=== PATIENT | male | born 1945 | race Caucasian/White ===

== ENCOUNTER 2017-02-13 17:32 | Inpatient (IN) | payer MEDICARE ==
[~2017-02-13] VITALS: Ht 188 cm; Wt 81.2 kg
[~2017-02-13 17:32] MED LIST: ABAT250V; ADVIL PO; AKWA Tears15 ML BOTHEYES; ALBU3IS INH; ALBU90OI6 INH; ASPI81CH PO; ASPI81EC PO; Augmentin 875-1 EACH PO; B Complete1 EACH PO; BUDE.25 NEB; CARV3.125 PO; CLOT10 MT; CYAN1000 PO; CYAN500 PO; Dilaudid 2 mg Ta2 MG PO; FERR325 PO; FOLI1 PO; GABA300 PO; GABA300T24 PO; IBUP100S PO; LOVA20 PO; LOVA40 PO; Lovastatin20 MG PO; MEVACOR PO; MORP30ER PO; Mycamine100 MG/VIA IV; NYST100000 MT; OXYACE7.5T PO; OXYC1TAB11 PO; Omeprazole20 M1 PO; Oxycodone-Apap1 EAC3 PO; PRED10 PO; PRED5 PO; SERT100 PO; SERT50 PO; SERTRALINE PO; TAMS.4ER PO; TRAZ50 PO; Ventolin Soln3 ML; Ventolin Soln3 ML INH; ZENPEP DR 25,01 EACH PO; Zoloft100 MG PO
[2017-02-13] MEDS ORDERED: ESCI10 PO (17:53)
[2017-02-13] MEDS ORDERED: Hair, Skin & N1 EACH PO (17:54)
[2017-02-13] MEDS ORDERED: TRAZ50 PO (17:55)
[2017-02-13 18:14] LABS: BASOPHILS ABSOLUTE AUTO 0.02 K/mm3 (0.00-0.23); BASOPHILS PERCENT AUTO 0 % (0-2); EOSINOPHILS ABSOLUTE AUTO 0.13 K/mm3 (0.00-0.68); EOSINOPHILS PERCENT AUTO 1 % (0-6); Hematocrit 35.3 % (37.0-53.0); Hemoglobin 11.7 g/dL (13.5-17.5); IMMATURE GRAN ABSOLUTE AUTO 0.02 K/mm3 (0.00-0.10); IMMATURE GRAN PERCENT AUTO 0 % (0-1); LYMPHOCYTES ABSOLUTE AUTO 1.97 K/mm3 (0.84-5.20); LYMPHOCYTES PERCENT AUTO 18 % (21-46); MONOCYTES PERCENT AUTO 5 % (4-13); Mean Corpuscular HGB 31.9 pg (26.0-34.0); Mean Corpuscular HGB Conc 33.1 g/dL (31.5-36.5); Mean Corpuscular Volume 96 fL (80-100); Mean Platelet Volume 10.1 fL (9.1-12.4); NEUTROPHILS ABSOLUTE AUTO 8.36 K/mm3 (1.96-9.15); NEUTROPHILS PERCENT AUTO 76 % (41-73); Platelet Count 199 K/mm3 (150-400); RDW Coefficient Variation 13.2 % (11.7-14.2); Red Blood Cell Count 3.67 M/mm3 (4.30-5.90)
[2017-02-13 18:28] LABS: International Normalized Ratio 1.09; Prothrombin Time Results 11.4 Sec (9.7-11.5)
[2017-02-13 18:29] LABS: Influenza A Negative (NEGATIVE); Influenza B Negative (NEGATIVE)
[2017-02-13 18:56] LABS: Alanine Aminotransfer (ALT/SGP 24 U/L (12-78); Albumin, Blood 3.3 g/dL (3.4-5.0); Alk Phos 67 U/L (50-136); Anion Gap 6 mmol/L (6-16); Aspartate Aminotrans (AST/SGOT 21 U/L (12-37); Bilirubin, Total 0.6 mg/dL (0.1-1.0); Blood Urea Nitrogen 17 mg/dL (8-24); Bun/Creatinine Ratio 16.7 (12.0-20.0); CO2, Blood 27 mmol/L (21-32); Calcium, Blood 9.3 mg/dL (8.5-10.1); Chloride, Blood 106 mmol/L (98-108); Creatinine, Blood 1.02 mg/dL (0.60-1.20); Globulin, Blood 3.4 g/dL (2.2-4.0); Glomerular Filtration Rate >60 (60-); Glucose, Blood 107 mg/dL (70-99); Potassium, Blood 3.6 mmol/L (3.5-5.5); Sodium, Blood 139 mmol/L (136-145); Total Protein, Blood 6.7 g/dL (6.4-8.2)
[2017-02-13] MEDS ORDERED: ALBU3IS INH (22:33)
[2017-02-13] MEDS ORDERED: CYAN500 (22:36)
[2017-02-13 23:44] LABS: Source, Urine Voided
[2017-02-13 23:49] LABS: Bilirubin, Urine Neg (Neg); Blood, Urine 2+ (Neg); Glucose Qualitative, Urine Neg (Neg); Ketones, Urine Neg (Neg); Leukocyte Esterase, Urine 3+ (Neg); Nitrite, Urine Neg (Neg); Protein, Urine 2+ (Neg); Urobilinogen, Urine NORM (Normal)
[2017-02-14] LABS: Appearance, Urine Cloudy (Clear); Color, Urine Yellow (P-Yellow)
[2017-02-14 00:12] LABS: Bacteria Many /hpf; Squamous Epithelial Cells Few /hpf (Few); White Blood Cells, Urine 25-50 /hpf (0-5)
[2017-02-14 05:18] LABS: BASOPHILS ABSOLUTE AUTO 0.01 K/mm3 (0.00-0.23); BASOPHILS PERCENT AUTO 0 % (0-2); EOSINOPHILS PERCENT AUTO 0 % (0-6); Hematocrit 34.3 % (37.0-53.0); IMMATURE GRAN ABSOLUTE AUTO 0.04 K/mm3 (0.00-0.10); IMMATURE GRAN PERCENT AUTO 0 % (0-1); LYMPHOCYTES ABSOLUTE AUTO 0.65 K/mm3 (0.84-5.20); LYMPHOCYTES PERCENT AUTO 5 % (21-46); MONOCYTES PERCENT AUTO 2 % (4-13); Mean Corpuscular HGB 31.6 pg (26.0-34.0); Mean Corpuscular HGB Conc 32.1 g/dL (31.5-36.5); Mean Platelet Volume 9.9 fL (9.1-12.4); NEUTROPHILS ABSOLUTE AUTO 12.34 K/mm3 (1.96-9.15); NEUTROPHILS PERCENT AUTO 93 % (41-73); Platelet Count 209 K/mm3 (150-400); RDW Coefficient Variation 13.5 % (11.7-14.2); RDW Standard Deviation 48.6 fL (35.1-46.3); Red Blood Cell Count 3.48 M/mm3 (4.30-5.90); White Blood Cell Count 13.24 K/mm3 (4.00-11.30)
[2017-02-14 05:21] LABS: Mean Corpuscular Volume 99 fL (80-100)
[2017-02-14 05:58] LABS: Alanine Aminotransfer (ALT/SGP 34 U/L (12-78); Alk Phos 58 U/L (50-136); Aspartate Aminotrans (AST/SGOT 39 U/L (12-37); Bilirubin, Total 0.5 mg/dL (0.1-1.0); Chloride, Blood 110 mmol/L (98-108); Creatinine, Blood 0.83 mg/dL (0.60-1.20); Glomerular Filtration Rate >60 (60-); Potassium, Blood 4.2 mmol/L (3.5-5.5); Sodium, Blood 140 mmol/L (136-145); Total Protein, Blood 6.2 g/dL (6.4-8.2)
[2017-02-14 06:09] LABS: Albumin, Blood 2.8 g/dL (3.4-5.0); Albumin/Globulin Ratio 0.8 (0.8-1.8); Anion Gap 8 mmol/L (6-16); Blood Urea Nitrogen 20 mg/dL (8-24); Bun/Creatinine Ratio 24.2 (12.0-20.0); CO2, Blood 22 mmol/L (21-32); Calcium, Blood 8.4 mg/dL (8.5-10.1); Globulin, Blood 3.4 g/dL (2.2-4.0); Glucose, Blood 207 mg/dL (70-99)
[2017-02-14 14:30] LABS: Vancomycin, Trough 6.7 ug/mL (5.0-10.0)
[2017-02-15 05:42] LABS: BASOPHILS PERCENT AUTO 0 % (0-2); EOSINOPHILS PERCENT AUTO 0 % (0-6); Hematocrit 29.9 % (37.0-53.0); Hemoglobin 9.9 g/dL (13.5-17.5); IMMATURE GRAN ABSOLUTE AUTO 0.05 K/mm3 (0.00-0.10); IMMATURE GRAN PERCENT AUTO 0 % (0-1); LYMPHOCYTES ABSOLUTE AUTO 0.98 K/mm3 (0.84-5.20); LYMPHOCYTES PERCENT AUTO 6 % (21-46); MONOCYTES ABSOLUTE AUTO 0.91 K/mm3 (0.16-1.47); MONOCYTES PERCENT AUTO 6 % (4-13); Mean Corpuscular HGB 31.7 pg (26.0-34.0); Mean Corpuscular HGB Conc 33.1 g/dL (31.5-36.5); Mean Platelet Volume 10.1 fL (9.1-12.4); NEUTROPHILS ABSOLUTE AUTO 14.04 K/mm3 (1.96-9.15); NEUTROPHILS PERCENT AUTO 88 % (41-73); Platelet Count 208 K/mm3 (150-400); RDW Coefficient Variation 13.5 % (11.7-14.2); RDW Standard Deviation 47.1 fL (35.1-46.3); Red Blood Cell Count 3.12 M/mm3 (4.30-5.90); White Blood Cell Count 15.98 K/mm3 (4.00-11.30)
[2017-02-15 06:04] LABS: Mean Corpuscular Volume 96 fL (80-100)
[2017-02-15 06:07] LABS: Alanine Aminotransfer (ALT/SGP 29 U/L (12-78); Albumin, Blood 2.7 g/dL (3.4-5.0); Albumin/Globulin Ratio 0.8 (0.8-1.8); Alk Phos 53 U/L (50-136); Anion Gap 7 mmol/L (6-16); Aspartate Aminotrans (AST/SGOT 25 U/L (12-37); Bilirubin, Total 0.4 mg/dL (0.1-1.0); Blood Urea Nitrogen 29 mg/dL (8-24); Bun/Creatinine Ratio 34.8 (12.0-20.0); CO2, Blood 24 mmol/L (21-32); Calcium, Blood 8.2 mg/dL (8.5-10.1); Chloride, Blood 110 mmol/L (98-108); Creatinine, Blood 0.83 mg/dL (0.60-1.20); Globulin, Blood 3.3 g/dL (2.2-4.0); Glomerular Filtration Rate >60 (60-); Glucose, Blood 136 mg/dL (70-99); Magnesium, Blood 2.2 mg/dL (1.6-2.4); Phosphorus, Blood 2.3 mg/dL (2.5-4.9); Potassium, Blood 3.7 mmol/L (3.5-5.5); Sodium, Blood 141 mmol/L (136-145)
[2017-02-15] MEDS ORDERED: GUAI600T33 PO (12:07)
[2017-02-15] MEDS ORDERED: SACC250C PO (12:08)
[2017-02-15] MEDS ORDERED: LEVO750 PO (12:08)
[2017-02-17 03:18] LABS: M. pneumoniae Ab, IgG 0.172 U/L (<0.100); M. pneumoniae Ab, IgM 0.113 U/L (<0.770)
[2017-05-21] MEDS ORDERED: PRED10 PO (15:44)
[2018-01-01] MEDS ORDERED: Vitamin B Comple1 EA PO (11:54)
[2018-01-01] MEDS ORDERED: PROBIOTIC1 EAC6 PO (11:55)
[2018-01-01] MEDS ORDERED: TUMS200 MG PO (11:55)
[2018-01-01] MEDS ORDERED: COMBIVENT RESPIM4 GM INH (11:56)
== END 2017-02-15 13:09 | disposition home or self-care (01) | DRG 189 ==
LOC: ER 17:32 → MEDS 21:29 → ENPENDDIS 02-15 11:40 → MEDS 02-15 13:09
PROVIDERS: Emergency Medicine; Family Medicine; Hospitalist
DX: J96.21 Acute and chronic respiratory failure with hypoxia (principal); J15.6 Pneumonia due to other Gram-negative bacteria; J15.1 Pneumonia due to Pseudomonas; J44.0 Chronic obstructive pulmonary disease with (acute) lower respiratory infection; Y95 Nosocomial condition; M54.5 Low back pain; M54.2 Cervicalgia; G89.4 Chronic pain syndrome; K21.9 Gastro-esophageal reflux disease without esophagitis; F41.9 Anxiety disorder, unspecified; F32.9 Major depressive disorder, single episode, unspecified; I10 Essential (primary) hypertension; E78.5 Hyperlipidemia, unspecified; Z99.81 Dependence on supplemental oxygen; Z87.891 Personal history of nicotine dependence; Z79.82 Long term (current) use of aspirin; Z79.899 Other long term (current) drug therapy; Z79.52 Long term (current) use of systemic steroids; Z88.8 Allergy status to other drugs, medicaments and biological substances
CPT/HCPCS: 36415; 71020; 80053; 80202; 81001; 83605; 83735; 84100; 84484; 85025; 85610; 85730; 86738; 87040; 87086; 87449; 87804; 93005; 93010; 94640; 94762; 96361; 96365; 96367; 96375; 99285; J1650; J1956; J2185; J2270; J2543; J2920; J2930; J3370; J7030; J7050; J7626

== ENCOUNTER 2017-03-27 14:17 | Inpatient (IN) | payer MEDICARE ==
[~2017-03-27] VITALS: Ht 188 cm; Wt 78.4 kg
[~2017-03-27 14:17] MED LIST changes: -AZIT500 PO; -CEFD300 PO; -PRED10
[2017-03-27 19:50] LABS: Source, Urine Catheter
[2017-03-27 19:56] LABS: Appearance, Urine Clear (Clear); Blood, Urine Neg (Neg); Color, Urine Yellow (P-Yellow); Glucose Qualitative, Urine Neg (Neg); Ketones, Urine 1+ (Neg); Leukocyte Esterase, Urine 2+ (Neg); Nitrite, Urine Neg (Neg); Protein, Urine 1+ (Neg); Specific Gravity, Urine 1.015 (1.003-1.022); Urobilinogen, Urine NORM (Normal)
[2017-03-27 20:04] LABS: Bilirubin, Urine 1+ (Neg)
[2017-03-27 20:06] LABS: Yeast/Fungi Urine Mod /hpf
[2017-03-27 20:07] LABS: Bacteria Few /hpf; Squamous Epithelial Cells Few /hpf (Few)
[2017-03-28 04:58] LABS: BASOPHILS ABSOLUTE AUTO 0.02 K/mm3 (0.00-0.23); BASOPHILS PERCENT AUTO 0 % (0-2); EOSINOPHILS PERCENT AUTO 0 % (0-6); Hematocrit 32.5 % (37.0-53.0); Hemoglobin 10.6 g/dL (13.5-17.5); IMMATURE GRAN ABSOLUTE AUTO 0.21 K/mm3 (0.00-0.10); IMMATURE GRAN PERCENT AUTO 1 % (0-1); LYMPHOCYTES ABSOLUTE AUTO 0.86 K/mm3 (0.84-5.20); LYMPHOCYTES PERCENT AUTO 5 % (21-46); MONOCYTES ABSOLUTE AUTO 0.28 K/mm3 (0.16-1.47); MONOCYTES PERCENT AUTO 2 % (4-13); Mean Corpuscular HGB 31.5 pg (26.0-34.0); Mean Corpuscular HGB Conc 32.6 g/dL (31.5-36.5); Mean Corpuscular Volume 97 fL (80-100); Mean Platelet Volume 9.9 fL (9.1-12.4); NEUTROPHILS ABSOLUTE AUTO 15.86 K/mm3 (1.96-9.15); NEUTROPHILS PERCENT AUTO 92 % (41-73); Platelet Count 153 K/mm3 (150-400); RDW Standard Deviation 46.1 fL (35.1-46.3); Red Blood Cell Count 3.36 M/mm3 (4.30-5.90); White Blood Cell Count 17.23 K/mm3 (4.00-11.30)
[2017-03-28 05:23] LABS: Alanine Aminotransfer (ALT/SGP 22 U/L (12-78); Albumin, Blood 2.7 g/dL (3.4-5.0); Albumin/Globulin Ratio 0.8 (0.8-1.8); Alk Phos 52 U/L (50-136); Anion Gap 6 mmol/L (6-16); Aspartate Aminotrans (AST/SGOT 14 U/L (12-37); Bilirubin, Total 0.3 mg/dL (0.1-1.0); Blood Urea Nitrogen 23 mg/dL (8-24); Bun/Creatinine Ratio 26.5 (12.0-20.0); CO2, Blood 26 mmol/L (21-32); Calcium, Blood 8.3 mg/dL (8.5-10.1); Chloride, Blood 109 mmol/L (98-108); Creatinine, Blood 0.87 mg/dL (0.60-1.20); Globulin, Blood 3.5 g/dL (2.2-4.0); Glomerular Filtration Rate >60 (60-); Glucose, Blood 136 mg/dL (70-99); Potassium, Blood 4.7 mmol/L (3.5-5.5); Sodium, Blood 141 mmol/L (136-145); Total Protein, Blood 6.2 g/dL (6.4-8.2)
[2017-03-29] MEDS ORDERED: AZIT500 PO (14:10)
[2017-03-29] MEDS ORDERED: CEFD300 PO (14:11)
[2017-05-21] MEDS ORDERED: PRED10 PO (15:44)
[2018-01-01] MEDS ORDERED: Vitamin B Comple1 EA PO (11:54)
[2018-01-01] MEDS ORDERED: PROBIOTIC1 EAC6 PO (11:55)
[2018-01-01] MEDS ORDERED: TUMS200 MG PO (11:55)
[2018-01-01] MEDS ORDERED: COMBIVENT RESPIM4 GM INH (11:56)
== END 2017-03-29 14:59 | disposition home or self-care (01) | DRG 177 ==
LOC: MEDS 14:17
PROVIDERS: Internal Medicine
DX: J69.0 Pneumonitis due to inhalation of food and vomit (principal); K85.90 Acute pancreatitis without necrosis or infection, unspecified; J96.11 Chronic respiratory failure with hypoxia; J44.1 Chronic obstructive pulmonary disease with (acute) exacerbation; Z99.81 Dependence on supplemental oxygen; R13.10 Dysphagia, unspecified; F10.10 Alcohol abuse, uncomplicated; G89.29 Other chronic pain; I10 Essential (primary) hypertension; Z87.891 Personal history of nicotine dependence; R32 Unspecified urinary incontinence
CPT/HCPCS: 36415; 71046; 74230; 80053; 81001; 85025; 87040; 87070; 87077; 87086; 87186; 87205; 92611; 94640; 94760; G8996; G8997; G8998; J0360; J0456; J0696; J1650; J2920; J7030; J7050

== ENCOUNTER → 2017-03-27 | Outpatient (CLI) | payer MEDICARE ==
[~2017-03-27] MED LIST changes: +AZIT500 PO; +CEFD300 PO; +CYAN500; +ESCI10 PO; +GUAI600T33 PO; +Hair, Skin & N1 EACH PO; +LEVO750 PO; +PRED10; +SACC250C PO
[2017-03-27 13:10] LABS: BASOPHILS ABSOLUTE AUTO 0.05 K/mm3 (0.00-0.23); BASOPHILS PERCENT AUTO 0 % (0-2); EOSINOPHILS PERCENT AUTO 1 % (0-6); Hemoglobin 11.9 g/dL (13.5-17.5); IMMATURE GRAN ABSOLUTE AUTO 0.13 K/mm3 (0.00-0.10); IMMATURE GRAN PERCENT AUTO 1 % (0-1); LYMPHOCYTES ABSOLUTE AUTO 3.03 K/mm3 (0.84-5.20); LYMPHOCYTES PERCENT AUTO 14 % (21-46); MONOCYTES ABSOLUTE AUTO 1.32 K/mm3 (0.16-1.47); MONOCYTES PERCENT AUTO 6 % (4-13); Mean Corpuscular HGB 32.2 pg (26.0-34.0); Mean Corpuscular Volume 95 fL (80-100); Mean Platelet Volume 9.7 fL (9.1-12.4); NEUTROPHILS ABSOLUTE AUTO 17.62 K/mm3 (1.96-9.15); NEUTROPHILS PERCENT AUTO 79 % (41-73); Platelet Count 166 K/mm3 (150-400); RDW Standard Deviation 44.9 fL (35.1-46.3); Red Blood Cell Count 3.69 M/mm3 (4.30-5.90); White Blood Cell Count 22.35 K/mm3 (4.00-11.30)
[2017-03-27 13:23] LABS: Albumin, Blood 3.3 g/dL (3.4-5.0); Albumin/Globulin Ratio 0.9 (0.8-1.8); Bilirubin, Total 0.5 mg/dL (0.1-1.0); Bun/Creatinine Ratio 11.6 (12.0-20.0); Calcium, Blood 9.2 mg/dL (8.5-10.1); Creatinine, Blood 1.38 mg/dL (0.60-1.20); Globulin, Blood 3.5 g/dL (2.2-4.0); Total Protein, Blood 6.8 g/dL (6.4-8.2)
== END ==
LOC: LAB EV 13:05 → LAB SHORT 13:05
PROVIDERS: Physician Assistant
DX: R53.83 Other fatigue (principal)
CPT/HCPCS: 80053; 85025; 87040

== ENCOUNTER 2017-05-18 15:10 | Inpatient (IN) | payer MEDICARE ==
[~2017-05-18] VITALS: Ht 188 cm; Wt 79.8 kg
[~2017-05-18 15:10] MED LIST changes: -PRED10
[2017-05-19 05:26] LABS: BASOPHILS PERCENT AUTO 0 % (0-2); EOSINOPHILS PERCENT AUTO 0 % (0-6); Hematocrit 34.5 % (37.0-53.0); Hemoglobin 11.2 g/dL (13.5-17.5); Mean Corpuscular HGB 31.7 pg (26.0-34.0); Mean Corpuscular HGB Conc 32.5 g/dL (31.5-36.5); Platelet Count 161 K/mm3 (150-400); RDW Coefficient Variation 12.9 % (11.7-14.2); RDW Standard Deviation 46.1 fL (35.1-46.3); Red Blood Cell Count 3.53 M/mm3 (4.30-5.90); White Blood Cell Count 2.73 K/mm3 (4.00-11.30)
[2017-05-19 05:39] LABS: IMMATURE GRAN PERCENT AUTO 0 % (0-1); LYMPHOCYTES ABSOLUTE AUTO 0.65 K/mm3 (0.84-5.20); LYMPHOCYTES PERCENT AUTO 24 % (21-46); MONOCYTES ABSOLUTE AUTO 0.11 K/mm3 (0.16-1.47); MONOCYTES PERCENT AUTO 4 % (4-13); Mean Corpuscular Volume 98 fL (80-100); NEUTROPHILS ABSOLUTE AUTO 1.97 K/mm3 (1.96-9.15); NEUTROPHILS PERCENT AUTO 72 % (41-73)
[2017-05-19 06:06] LABS: Anion Gap 10 mmol/L (6-16); Blood Urea Nitrogen 28 mg/dL (8-24); CO2, Blood 24 mmol/L (21-32); Calcium, Blood 8.4 mg/dL (8.5-10.1); Chloride, Blood 108 mmol/L (98-108); Creatinine, Blood 0.93 mg/dL (0.60-1.20); Glomerular Filtration Rate >60 (60-); Glucose, Blood 127 mg/dL (70-99); Potassium, Blood 4.6 mmol/L (3.5-5.5); Sodium, Blood 142 mmol/L (136-145)
[2017-05-20 05:51] LABS: Vancomycin, Trough 22.3 ug/mL (5.0-10.0)
[2017-05-21 04:52] LABS: BASOPHILS ABSOLUTE AUTO 0.01 K/mm3 (0.00-0.23); BASOPHILS PERCENT AUTO 0 % (0-2); EOSINOPHILS PERCENT AUTO 0 % (0-6); Hematocrit 32.4 % (37.0-53.0); Hemoglobin 10.8 g/dL (13.5-17.5); IMMATURE GRAN ABSOLUTE AUTO 0.05 K/mm3 (0.00-0.10); IMMATURE GRAN PERCENT AUTO 1 % (0-1); LYMPHOCYTES ABSOLUTE AUTO 1.03 K/mm3 (0.84-5.20); LYMPHOCYTES PERCENT AUTO 11 % (21-46); MONOCYTES ABSOLUTE AUTO 0.52 K/mm3 (0.16-1.47); MONOCYTES PERCENT AUTO 5 % (4-13); Mean Corpuscular HGB Conc 33.3 g/dL (31.5-36.5); Mean Platelet Volume 10.4 fL (9.1-12.4); NEUTROPHILS ABSOLUTE AUTO 7.95 K/mm3 (1.96-9.15); NEUTROPHILS PERCENT AUTO 83 % (41-73); Platelet Count 210 K/mm3 (150-400); RDW Coefficient Variation 13.1 % (11.7-14.2); RDW Standard Deviation 44.6 fL (35.1-46.3); Red Blood Cell Count 3.48 M/mm3 (4.30-5.90); White Blood Cell Count 9.56 K/mm3 (4.00-11.30)
[2017-05-21 04:53] LABS: Mean Corpuscular Volume 93 fL (80-100)
[2017-05-21 05:16] LABS: Anion Gap 8 mmol/L (6-16); Blood Urea Nitrogen 31 mg/dL (8-24); Bun/Creatinine Ratio 39.7 (12.0-20.0); CO2, Blood 24 mmol/L (21-32); Calcium, Blood 8.4 mg/dL (8.5-10.1); Chloride, Blood 110 mmol/L (98-108); Creatinine, Blood 0.78 mg/dL (0.60-1.20); Glomerular Filtration Rate >60 (60-); Glucose, Blood 156 mg/dL (70-99); Potassium, Blood 4.4 mmol/L (3.5-5.5); Sodium, Blood 142 mmol/L (136-145)
[2017-05-21] MEDS ORDERED: ALBU3IS INH (15:39)
[2017-05-21] MEDS ORDERED: BUDE.25 NEB (15:42)
[2017-05-21] MEDS ORDERED: Augmentin 875-1 EACH PO (15:43)
[2017-05-21] MEDS ORDERED: PRED10 (15:44)
== END 2017-05-21 16:31 | disposition home or self-care (01) | DRG 177 ==
LOC: MEDS 15:10 → ENPENDDIS 05-21 14:00 → MEDS 05-21 16:31
PROVIDERS: Hospitalist
PROC: 3E0234Z Introduction of Serum, Toxoid and Vaccine into Muscle, Percutaneous Approach (ICD-10-PCS; principal; 2017-05-18)
DX: J69.0 Pneumonitis due to inhalation of food and vomit (principal); J96.21 Acute and chronic respiratory failure with hypoxia; J44.0 Chronic obstructive pulmonary disease with (acute) lower respiratory infection; J44.1 Chronic obstructive pulmonary disease with (acute) exacerbation; F11.20 Opioid dependence, uncomplicated; Z23 Encounter for immunization; I10 Essential (primary) hypertension; K21.9 Gastro-esophageal reflux disease without esophagitis; E78.5 Hyperlipidemia, unspecified; N40.1 Benign prostatic hyperplasia with lower urinary tract symptoms; R33.8 Other retention of urine; G89.4 Chronic pain syndrome; F41.9 Anxiety disorder, unspecified
CPT/HCPCS: 36415; 80048; 80053; 80069; 80202; 83880; 85025; 94640; 94760; 97116; 97161; 97530; G8978; G8979; G8980; J1650; J2543; J2920; J3370; J7030

== ENCOUNTER → 2017-05-18 | Outpatient (CLI) | payer MEDICARE ==
[~2017-05-18] MED LIST changes: +AZIT500 PO; +CEFD300 PO; +PRED10
[2017-05-18 14:05] LABS: Hematocrit 33.6 % (37.0-53.0); Hemoglobin 11.4 g/dL (13.5-17.5); Mean Corpuscular HGB 31.8 pg (26.0-34.0); Mean Corpuscular HGB Conc 33.9 g/dL (31.5-36.5); Mean Corpuscular Volume 94 fL (80-100); Mean Platelet Volume 9.6 fL (9.1-12.4); Platelet Count 163 K/mm3 (150-400); RDW Standard Deviation 44.7 fL (35.1-46.3); Red Blood Cell Count 3.59 M/mm3 (4.30-5.90); White Blood Cell Count 4.59 K/mm3 (4.00-11.30)
[2017-05-18 14:20] LABS: Alanine Aminotransfer (ALT/SGP 29 U/L (12-78); Albumin, Blood 3.3 g/dL (3.4-5.0); Albumin/Globulin Ratio 0.8 (0.8-1.8); Alk Phos 71 U/L (40-126); Anion Gap 10 mmol/L (6-16); Aspartate Aminotrans (AST/SGOT 35 U/L (12-37); Bilirubin, Total 0.2 mg/dL (0.1-1.0); Blood Urea Nitrogen 21 mg/dL (8-24); Bun/Creatinine Ratio 19.3 (12.0-20.0); CO2, Blood 27 mmol/L (21-32); Calcium, Blood 8.7 mg/dL (8.5-10.1); Chloride, Blood 105 mmol/L (98-108); Creatinine, Blood 1.09 mg/dL (0.60-1.20); Globulin, Blood 3.9 g/dL (2.2-4.0); Glomerular Filtration Rate >60 (60-); Glucose, Blood 115 mg/dL (70-99); Potassium, Blood 4.2 mmol/L (3.5-5.5); Sodium, Blood 142 mmol/L (136-145); Total Protein, Blood 7.2 g/dL (6.4-8.2)
[2017-05-18 15:10] LABS: BAND PERCENT MAN 6 % (0-8); BASOPHILS PERCENT MAN 0 % (0-2); EOSINOPHILS PERCENT MAN 0 % (0-6); LYMPHOCYTES ABSOLUTE MAN 1.14 K/mm3 (0.84-5.20); LYMPHOCYTES PERCENT MAN 25 % (21-46); MONOCYTES ABSOLUTE MAN 0.18 K/mm3 (0.16-1.47); MONOCYTES PERCENT MAN 4 % (4-13); MYELOCYTE ABSOLUTE MAN 0.04 K/mm3 (0.00-0.00); MYELOCYTE PERCENT MAN 1 % (0-0); NEUTROPHILS ABSOLUTE MAN 3.21 K/mm3 (1.96-9.15); SEG NEUTROPHILS PERCENT MAN 64 % (41-73); TOTAL CELLS COUNTED 100
== END | disposition home or self-care (01) ==
LOC: LAB SHORT 14:00 → LAB EV 14:00
PROVIDERS: Physician Assistant
DX: R09.02 Hypoxemia (principal)
CPT/HCPCS: 80053; 83880; 85025

== ENCOUNTER 2017-07-01 05:21 | Inpatient (IN) | payer MEDICARE ==
[~2017-07-01] VITALS: Ht 188 cm; Wt 82.5 kg
[2017-07-01 05:36] LABS: PCO2 Arterial 42.4 mmHg (35-45); PO2 Arterial 63.9 mmHg (80-100); pH Blood Arterial 7.34 (7.35-7.45)
[2017-07-01] MEDS ORDERED: CETI5 PO (05:36)
[2017-07-01 05:41] LABS: BASOPHILS ABSOLUTE AUTO 0.03 K/mm3 (0.00-0.23); BASOPHILS PERCENT AUTO 0 % (0-2); EOSINOPHILS ABSOLUTE AUTO 0.11 K/mm3 (0.00-0.68); EOSINOPHILS PERCENT AUTO 1 % (0-6); Hematocrit 36.6 % (37.0-53.0); IMMATURE GRAN ABSOLUTE AUTO 0.03 K/mm3 (0.00-0.10); IMMATURE GRAN PERCENT AUTO 0 % (0-1); LYMPHOCYTES ABSOLUTE AUTO 3.41 K/mm3 (0.84-5.20); LYMPHOCYTES PERCENT AUTO 37 % (21-46); MONOCYTES ABSOLUTE AUTO 0.29 K/mm3 (0.16-1.47); MONOCYTES PERCENT AUTO 3 % (4-13); Mean Corpuscular HGB 32.2 pg (26.0-34.0); Mean Corpuscular HGB Conc 32.8 g/dL (31.5-36.5); Mean Corpuscular Volume 98 fL (80-100); Mean Platelet Volume 9.7 fL (9.1-12.4); NEUTROPHILS ABSOLUTE AUTO 5.44 K/mm3 (1.96-9.15); NEUTROPHILS PERCENT AUTO 59 % (41-73); Platelet Count 265 K/mm3 (150-400); RDW Coefficient Variation 13.3 % (11.7-14.2); RDW Standard Deviation 48.1 fL (35.1-46.3); Red Blood Cell Count 3.73 M/mm3 (4.30-5.90); White Blood Cell Count 9.31 K/mm3 (4.00-11.30)
[2017-07-01 06:02] LABS: Alanine Aminotransfer (ALT/SGP 24 U/L (12-78); Albumin, Blood 3.4 g/dL (3.4-5.0); Albumin/Globulin Ratio 0.8 (0.8-1.8); Alk Phos 83 U/L (50-136); Anion Gap 7 mmol/L (6-16); Aspartate Aminotrans (AST/SGOT 22 U/L (12-37); Bilirubin, Total 0.4 mg/dL (0.1-1.0); Blood Urea Nitrogen 13 mg/dL (8-24); Bun/Creatinine Ratio 15.3 (12.0-20.0); CO2, Blood 27 mmol/L (21-32); Calcium, Blood 9.1 mg/dL (8.5-10.1); Chloride, Blood 107 mmol/L (98-108); Creatinine, Blood 0.85 mg/dL (0.60-1.20); Glomerular Filtration Rate >60 (60-); Glucose, Blood 161 mg/dL (70-99); Potassium, Blood 4.2 mmol/L (3.5-5.5); Sodium, Blood 141 mmol/L (136-145); Total Protein, Blood 7.4 g/dL (6.4-8.2); Troponin I 0.069 ng/mL (0.000-0.040)
[2017-07-01 07:56] LABS: International Normalized Ratio 1.07; Prothrombin Time Results 11.2 Sec (9.7-11.5)
[2017-07-01] MEDS ORDERED: GABA300 PO (09:58)
[2017-07-02 04:33] LABS: Hemoglobin 9.6 g/dL (13.5-17.5); Mean Corpuscular HGB 32.3 pg (26.0-34.0); Mean Corpuscular HGB Conc 33.1 g/dL (31.5-36.5); Mean Corpuscular Volume 98 fL (80-100); Mean Platelet Volume 10.1 fL (9.1-12.4); Platelet Count 188 K/mm3 (150-400); RDW Coefficient Variation 13.8 % (11.7-14.2); RDW Standard Deviation 49.6 fL (35.1-46.3); Red Blood Cell Count 2.97 M/mm3 (4.30-5.90); White Blood Cell Count 18.37 K/mm3 (4.00-11.30)
[2017-07-02 04:54] LABS: Anion Gap 6 mmol/L (6-16); Blood Urea Nitrogen 20 mg/dL (8-24); Bun/Creatinine Ratio 22.7 (12.0-20.0); CO2, Blood 23 mmol/L (21-32); Chloride, Blood 113 mmol/L (98-108); Creatinine, Blood 0.88 mg/dL (0.60-1.20); Glomerular Filtration Rate >60 (60-); Glucose, Blood 175 mg/dL (70-99); Magnesium, Blood 1.9 mg/dL (1.6-2.4); Potassium, Blood 4.2 mmol/L (3.5-5.5); Sodium, Blood 142 mmol/L (136-145)
[2017-07-02 05:13] LABS: BAND PERCENT MAN 26 % (0-8); BASOPHILS PERCENT MAN 0 % (0-2); EOSINOPHILS PERCENT MAN 0 % (0-6); LYMPHOCYTES ABSOLUTE MAN 1.46 K/mm3 (0.84-5.20); LYMPHOCYTES PERCENT MAN 8 % (21-46); METAMYELOCYTE ABSOLUTE MAN 0.73 K/mm3 (0.00-0.00); METAMYELOCYTE PERCENT MAN 4 % (0-0); MONOCYTES ABSOLUTE MAN 0.73 K/mm3 (0.16-1.47); MONOCYTES PERCENT MAN 4 % (4-13); NEUTROPHILS ABSOLUTE MAN 15.43 K/mm3 (1.96-9.15); SEG NEUTROPHILS PERCENT MAN 58 % (41-73); TOTAL CELLS COUNTED 100
[2017-07-02 10:25] LABS: Vancomycin, Trough 14.4 ug/mL (5.0-10.0)
[2017-07-03 04:45] LABS: BASOPHILS ABSOLUTE AUTO 0.01 K/mm3 (0.00-0.23); BASOPHILS PERCENT AUTO 0 % (0-2); EOSINOPHILS PERCENT AUTO 0 % (0-6); Hematocrit 28.4 % (37.0-53.0); Hemoglobin 9.3 g/dL (13.5-17.5); IMMATURE GRAN ABSOLUTE AUTO 0.23 K/mm3 (0.00-0.10); IMMATURE GRAN PERCENT AUTO 1 % (0-1); LYMPHOCYTES ABSOLUTE AUTO 0.72 K/mm3 (0.84-5.20); LYMPHOCYTES PERCENT AUTO 4 % (21-46); MONOCYTES ABSOLUTE AUTO 1.03 K/mm3 (0.16-1.47); MONOCYTES PERCENT AUTO 6 % (4-13); Mean Corpuscular HGB 31.8 pg (26.0-34.0); Mean Corpuscular HGB Conc 32.7 g/dL (31.5-36.5); Mean Corpuscular Volume 97 fL (80-100); Mean Platelet Volume 10.7 fL (9.1-12.4); NEUTROPHILS ABSOLUTE AUTO 14.47 K/mm3 (1.96-9.15); NEUTROPHILS PERCENT AUTO 88 % (41-73); Platelet Count 188 K/mm3 (150-400); RDW Coefficient Variation 13.8 % (11.7-14.2); RDW Standard Deviation 49.7 fL (35.1-46.3); Red Blood Cell Count 2.92 M/mm3 (4.30-5.90); White Blood Cell Count 16.46 K/mm3 (4.00-11.30)
[2017-07-03 05:18] LABS: Alanine Aminotransfer (ALT/SGP 41 U/L (12-78); Albumin, Blood 2.3 g/dL (3.4-5.0); Albumin/Globulin Ratio 0.6 (0.8-1.8); Alk Phos 58 U/L (50-136); Anion Gap 8 mmol/L (6-16); Aspartate Aminotrans (AST/SGOT 38 U/L (12-37); Bilirubin, Total 0.2 mg/dL (0.1-1.0); Blood Urea Nitrogen 23 mg/dL (8-24); Bun/Creatinine Ratio 25.4 (12.0-20.0); CO2, Blood 23 mmol/L (21-32); Chloride, Blood 112 mmol/L (98-108); Creatinine, Blood 0.91 mg/dL (0.60-1.20); Globulin, Blood 3.6 g/dL (2.2-4.0); Glomerular Filtration Rate >60 (60-); Glucose, Blood 193 mg/dL (70-99); Potassium, Blood 3.9 mmol/L (3.5-5.5); Sodium, Blood 143 mmol/L (136-145); Total Protein, Blood 5.9 g/dL (6.4-8.2)
[2017-07-03 09:46] LABS: Vancomycin, Trough 24.4 ug/mL (5.0-10.0)
[2017-07-04] MEDS ORDERED: ALBU3IS INH (11:52)
[2017-07-04] MEDS ORDERED: CLOP75 PO (11:54)
[2017-07-04] MEDS ORDERED: LEVFLO500 PO (11:55)
[2017-07-04] MEDS ORDERED: LOSA25 PO (11:55)
== END 2017-07-04 13:19 | disposition home or self-care (01) | DRG 871 ==
LOC: ER 05:21 → ICUW 06:09 → MEDS 06:09 → ICUW 08:59 → MEDS 17:35
PROVIDERS: Emergency Medicine; Internal Medicine; Internal Medicine Critical Care Medicine; Student in an Organized Health Care Education/Training Program
PROC: 5A09357 Assistance with Respiratory Ventilation, Less than 24 Consecutive Hours, Continuous Positive Airway Pressure (ICD-10-PCS; principal; 2017-07-01)
DX: A41.81 Sepsis due to Enterococcus (principal); J96.21 Acute and chronic respiratory failure with hypoxia; J18.9 Pneumonia, unspecified organism; I21.A1 Myocardial infarction type 2; J44.1 Chronic obstructive pulmonary disease with (acute) exacerbation; E87.2 Acidosis; I42.9 Cardiomyopathy, unspecified; R65.20 Severe sepsis without septic shock; I10 Essential (primary) hypertension; F41.9 Anxiety disorder, unspecified; E78.5 Hyperlipidemia, unspecified; G89.4 Chronic pain syndrome; I95.9 Hypotension, unspecified; Y95 Nosocomial condition; Z99.81 Dependence on supplemental oxygen; Z88.8 Allergy status to other drugs, medicaments and biological substances; Z79.82 Long term (current) use of aspirin; Z79.899 Other long term (current) drug therapy; Z87.891 Personal history of nicotine dependence; Z79.52 Long term (current) use of systemic steroids
CPT/HCPCS: 36415; 36600; 71045; 71046; 80048; 80053; 80202; 82803; 83605; 83735; 83880; 84484; 85025; 85610; 85730; 87040; 87070; 87077; 87186; 87205; 92610; 93005; 93010; 93306; 94010; 94640; 94644; 94660; 94664; 94667; 94760; 96365; 96368; 97161; 97530; 98960; 99285; G8978; G8979; G8980; G8996; G8997; G8998; J0456; J0696; J1650; J2185; J2543; J2920; J2930; J3370; J7030; J7050

== ENCOUNTER → 2017-07-17 | Outpatient (CLI) | END | disposition home or self-care (01) ==

== ENCOUNTER 2017-11-05 06:11 | Inpatient (IN) | payer MEDICARE ==
[~2017-11-05] VITALS: Ht 188 cm; Wt 77.8 kg
[~2017-11-05 06:11] MED LIST changes: +CETI5 PO; +CLOP75 PO; +LEVFLO500 PO; +LOSA25 PO
[2017-11-05 06:46] LABS: BASOPHILS ABSOLUTE AUTO 0.02 K/mm3 (0.00-0.23); BASOPHILS PERCENT AUTO 0 % (0-2); EOSINOPHILS ABSOLUTE AUTO 0.28 K/mm3 (0.00-0.68); EOSINOPHILS PERCENT AUTO 2 % (0-6); Hematocrit 34.1 % (37.0-53.0); Hemoglobin 11.3 g/dL (13.5-17.5); IMMATURE GRAN ABSOLUTE AUTO 0.03 K/mm3 (0.00-0.10); IMMATURE GRAN PERCENT AUTO 0 % (0-1); LYMPHOCYTES ABSOLUTE AUTO 1.56 K/mm3 (0.84-5.20); LYMPHOCYTES PERCENT AUTO 13 % (21-46); MONOCYTES ABSOLUTE AUTO 0.31 K/mm3 (0.16-1.47); MONOCYTES PERCENT AUTO 3 % (4-13); Mean Corpuscular HGB 31.7 pg (26.0-34.0); Mean Corpuscular HGB Conc 33.1 g/dL (31.5-36.5); Mean Corpuscular Volume 96 fL (80-100); NEUTROPHILS ABSOLUTE AUTO 10.08 K/mm3 (1.96-9.15); NEUTROPHILS PERCENT AUTO 82 % (41-73); Platelet Count 212 K/mm3 (150-400); RDW Standard Deviation 45.5 fL (35.1-46.3); Red Blood Cell Count 3.57 M/mm3 (4.30-5.90); White Blood Cell Count 12.28 K/mm3 (4.00-11.30)
[2017-11-05 06:58] LABS: Anion Gap 7 mmol/L (6-16); Blood Urea Nitrogen 12 mg/dL (8-24); Bun/Creatinine Ratio 15.3 (12.0-20.0); CO2, Blood 27 mmol/L (21-32); Calcium, Blood 8.4 mg/dL (8.5-10.1); Chloride, Blood 108 mmol/L (98-108); Creatinine, Blood 0.79 mg/dL (0.60-1.20); Glomerular Filtration Rate >60 (60-); Glucose, Blood 87 mg/dL (70-99); Potassium, Blood 3.9 mmol/L (3.5-5.5); Sodium, Blood 142 mmol/L (136-145)
[2017-11-05] MEDS ORDERED: LOSA25 PO (09:09)
[2017-11-05] MEDS ORDERED: PRED5 PO (09:11)
[2017-11-05] MEDS ORDERED: COMBIVENT RESPIMAT INH (09:12)
[2017-11-05] MEDS ORDERED: PROAIR RESPICL90 MCG INH (09:13)
[2017-11-05] MEDS ORDERED: VITAMIN B-121000 MCG PO (09:14)
[2017-11-05] MEDS ORDERED: VENL75ER PO (09:15)
[2017-11-05 09:48] LABS: PCO2 Arterial 43.3 mmHg (35-45); PO2 Arterial 77.5 mmHg (80-100); pH Blood Arterial 7.39 (7.35-7.45)
[2017-11-05] MEDS ORDERED: Colace100 MG PO (10:53)
[2017-11-05] MEDS ORDERED: MIRALAX17 GM PO (10:53)
[2017-11-06 05:35] LABS: BASOPHILS ABSOLUTE AUTO 0.03 K/mm3 (0.00-0.23); BASOPHILS PERCENT AUTO 0 % (0-2); EOSINOPHILS PERCENT AUTO 0 % (0-6); Hematocrit 32.7 % (37.0-53.0); Hemoglobin 10.8 g/dL (13.5-17.5); IMMATURE GRAN ABSOLUTE AUTO 0.17 K/mm3 (0.00-0.10); IMMATURE GRAN PERCENT AUTO 1 % (0-1); LYMPHOCYTES ABSOLUTE AUTO 0.89 K/mm3 (0.84-5.20); LYMPHOCYTES PERCENT AUTO 4 % (21-46); MONOCYTES ABSOLUTE AUTO 0.35 K/mm3 (0.16-1.47); MONOCYTES PERCENT AUTO 2 % (4-13); Mean Corpuscular HGB 30.9 pg (26.0-34.0); Mean Corpuscular Volume 94 fL (80-100); Mean Platelet Volume 9.7 fL (9.1-12.4); NEUTROPHILS ABSOLUTE AUTO 19.93 K/mm3 (1.96-9.15); NEUTROPHILS PERCENT AUTO 93 % (41-73); Platelet Count 210 K/mm3 (150-400); RDW Coefficient Variation 13.2 % (11.7-14.2); Red Blood Cell Count 3.49 M/mm3 (4.30-5.90); White Blood Cell Count 21.37 K/mm3 (4.00-11.30)
[2017-11-06 05:47] LABS: Alanine Aminotransfer (ALT/SGP 38 U/L (12-78); Albumin, Blood 2.7 g/dL (3.4-5.0); Albumin/Globulin Ratio 0.7 (0.8-1.8); Alk Phos 75 U/L (50-136); Anion Gap 8 mmol/L (6-16); Aspartate Aminotrans (AST/SGOT 25 U/L (12-37); Bilirubin, Total 0.4 mg/dL (0.1-1.0); Blood Urea Nitrogen 23 mg/dL (8-24); Bun/Creatinine Ratio 25.7 (12.0-20.0); CO2, Blood 25 mmol/L (21-32); Calcium, Blood 8.5 mg/dL (8.5-10.1); Chloride, Blood 107 mmol/L (98-108); Glomerular Filtration Rate >60 (60-); Glucose, Blood 172 mg/dL (70-99); Potassium, Blood 4.5 mmol/L (3.5-5.5); Sodium, Blood 140 mmol/L (136-145); Total Protein, Blood 6.7 g/dL (6.4-8.2)
[2017-11-07] MEDS ORDERED: AMOCLA500 PO (13:14)
== END 2017-11-07 13:42 | disposition home or self-care (01) | DRG 177 ==
LOC: ER 06:11 → MEDS 08:19 → ENPENDDIS 11-07 12:45 → MEDS 11-07 13:42
PROVIDERS: Emergency Medicine; Internal Medicine
DX: J69.0 Pneumonitis due to inhalation of food and vomit (principal); J96.21 Acute and chronic respiratory failure with hypoxia; J44.1 Chronic obstructive pulmonary disease with (acute) exacerbation; I50.42 Chronic combined systolic (congestive) and diastolic (congestive) heart failure; F11.20 Opioid dependence, uncomplicated; J44.0 Chronic obstructive pulmonary disease with (acute) lower respiratory infection; J84.9 Interstitial pulmonary disease, unspecified; I65.23 Occlusion and stenosis of bilateral carotid arteries; Z87.891 Personal history of nicotine dependence; Z99.81 Dependence on supplemental oxygen; Z87.01 Personal history of pneumonia (recurrent); I25.2 Old myocardial infarction; F41.9 Anxiety disorder, unspecified; Z79.82 Long term (current) use of aspirin; G89.4 Chronic pain syndrome; J84.10 Pulmonary fibrosis, unspecified; I11.0 Hypertensive heart disease with heart failure
CPT/HCPCS: 36415; 36600; 71046; 80048; 80053; 82803; 83605; 85025; 87070; 87077; 87186; 87205; 92526; 92610; 93005; 93010; 94640; 94760; 96365; 96375; 99285-25; G8996; G8997; G8998; J0295; J0456; J0696; J1650; J2920; J2930; J7050

== ENCOUNTER 2018-02-25 04:08 | Inpatient (IN) | payer MEDICARE ==
[~2018-02-25] VITALS: Ht 172.7 cm; Wt 76.5 kg
[~2018-02-25 04:08] MED LIST changes: +AMOCLA500 PO; +COMBIVENT RESPIM4 GM INH; +COMBIVENT RESPIMAT INH; +Colace100 MG PO; +MIRALAX17 GM PO; +PRED5 PT; +PROAIR RESPICL90 MCG INH; +PROBIOTIC1 EAC6 PO; +TUMS200 MG PO; +VENL75ER PO; +VITAMIN B-121000 MCG PO; +Vitamin B Comple1 EA PO
[2018-02-25 04:23] LABS: BASOPHILS ABSOLUTE AUTO 0.03 K/mm3 (0.00-0.23); BASOPHILS PERCENT AUTO 0 % (0-2); EOSINOPHILS ABSOLUTE AUTO 0.12 K/mm3 (0.00-0.68); EOSINOPHILS PERCENT AUTO 1 % (0-6); Hemoglobin 12.5 g/dL (13.5-17.5); IMMATURE GRAN ABSOLUTE AUTO 0.07 K/mm3 (0.00-0.10); IMMATURE GRAN PERCENT AUTO 1 % (0-1); LYMPHOCYTES ABSOLUTE AUTO 2.15 K/mm3 (0.84-5.20); LYMPHOCYTES PERCENT AUTO 15 % (21-46); MONOCYTES ABSOLUTE AUTO 0.57 K/mm3 (0.16-1.47); MONOCYTES PERCENT AUTO 4 % (4-13); Mean Corpuscular HGB 31.3 pg (26.0-34.0); Mean Corpuscular HGB Conc 32.9 g/dL (31.5-36.5); Mean Corpuscular Volume 95 fL (80-100); Mean Platelet Volume 10.4 fL (9.1-12.4); NEUTROPHILS ABSOLUTE AUTO 11.33 K/mm3 (1.96-9.15); NEUTROPHILS PERCENT AUTO 79 % (41-73); Platelet Count 215 K/mm3 (150-400); RDW Coefficient Variation 12.7 % (11.7-14.2); RDW Standard Deviation 43.9 fL (35.1-46.3); White Blood Cell Count 14.27 K/mm3 (4.00-11.30)
[2018-02-25 04:46] LABS: Alanine Aminotransfer (ALT/SGP 33 U/L (12-78); Albumin, Blood 3.4 g/dL (3.4-5.0); Albumin/Globulin Ratio 0.9 (0.8-1.8); Alk Phos 80 U/L (50-136); Anion Gap 7 mmol/L (6-16); Aspartate Aminotrans (AST/SGOT 22 U/L (12-37); Bilirubin, Total 0.4 mg/dL (0.1-1.0); Blood Urea Nitrogen 19 mg/dL (8-24); Bun/Creatinine Ratio 22.3 (12.0-20.0); CO2, Blood 28 mmol/L (21-32); Calcium, Blood 9.1 mg/dL (8.5-10.1); Chloride, Blood 104 mmol/L (98-108); Creatinine, Blood 0.85 mg/dL (0.60-1.20); Globulin, Blood 3.9 g/dL (2.2-4.0); Glomerular Filtration Rate >60 (60-); Glucose, Blood 103 mg/dL (70-99); Potassium, Blood 4.2 mmol/L (3.5-5.5); Sodium, Blood 139 mmol/L (136-145); Total Protein, Blood 7.3 g/dL (6.4-8.2)
[2018-02-25 04:52] LABS: Influenza A Negative (NEGATIVE); Influenza B Negative (NEGATIVE)
[2018-02-25] MEDS ORDERED: DOXA4 PO (10:21)
[2018-02-25] MEDS ORDERED: MIRALAX17 GM PO (10:22)
[2018-02-25] MEDS ORDERED: FENT50TP TOP (10:22)
[2018-02-25] MEDS ORDERED: ACET500 UD (10:25)
--- NOTE | 2018-02-25 15:45 | NUR ---
PATIENT ALERT AND ORIENTED. P.T. EVAL DONE. DIETITIAN EVAL. TO GIVE FEEDINGS IN BOLUS 4 TIMES A DAY W/WATER IN BETWEEN. LUNGS DIM TO CLEAR T/O. DENIES COUGHING. ON 4 LPM OXYGEN AND NORMALLY ON 2 LPM AT HOME. UNLABORED RESPIRATIONS. NPO DUE TO ASPIRATION W/MULTIPLE PNEUMONIAS. AWARE TO LET US KNOW IF NEEDS TO GET UP. ASKS FOR PAIN MEDS OFTEN AND ADVISED DOES NOT WANT TO GIVE ANY THAT WILL DECREASE BLD PRESS LACTIC ACID WAS HIGH. AT THIS TIME IN TO SEE PATIENT. BED IN LOW POSITION. TELE ON. CALL LIGHT WITHIN REACH. WILL CONTINUE TO MONITOR.
[2018-02-25 17:15] LABS: Adenovirus Not Detected (NOT DETECT); Bordetella pertussis Not Detected (NOT DETECT); Chlamydophila pneumoniae Not Detected (NOT DETECT); Coronavirus 229E Not Detected (NOT DETECT); Coronavirus HKU1 Not Detected (NOT DETECT); Coronavirus NL63 Not Detected (NOT DETECT); Coronavirus OC43 Not Detected (NOT DETECT); Human Metapneumovirus Not Detected (NOT DETECT); Human Rhinovirus/Enterovirus Not Detected (NOT DETECT); Influenza A/2009-H1 Not Detected (NOT DETECT); Influenza A/H1 Not Detected (NOT DETECT); Influenza A/H3 Not Detected (NOT DETECT); Influenza B Not Detected (NOT DETECT); Mycoplasma pneumoniae Not Detected (NOT DETECT); Parainfluenza Virus 1 Not Detected (NOT DETECT); Parainfluenza Virus 2 Not Detected (NOT DETECT); Parainfluenza Virus 3 Not Detected (NOT DETECT); Parainfluenza Virus 4 Not Detected (NOT DETECT); Respiratory Syncytial Virus Not Detected (NOT DETECT)
[2018-02-25 18:33] LABS: Influenza A Not Detected (NOT DETECT)
--- NOTE | 2018-02-25 19:08 | NUR ---
Consent to care Patient gives this student nurse consent to care on 02/25/18.
[2018-02-25 19:10] LABS: Source, Urine Clean Catch
[2018-02-25 19:15] LABS: Appearance, Urine Clear (Clear); Bilirubin, Urine Neg (Neg); Blood, Urine 1+ (Neg); Color, Urine Yellow (P-Yellow); Glucose Qualitative, Urine 4+ (Neg); Ketones, Urine Neg (Neg); Leukocyte Esterase, Urine 2+ (Neg); Nitrite, Urine Neg (Neg); Protein, Urine Neg (Neg); Urobilinogen, Urine NORM (Normal)
[2018-02-25 19:21] LABS: Bacteria Mod /hpf; Squamous Epithelial Cells Not Seen /hpf (Few); White Blood Cells, Urine 50-100 /hpf (0-5)
--- NOTE | 2018-02-26 04:42 | NUR ---
VSS, AFEBRILE, A/O, 20G L HAND, TELE: NSR, C/O CHRONIC BACK PAIN, FEEDING TUBE, CHECK FOR RESIDUAL PRIOR TO FEEDING, RESIDUAL >/= 150ML DURING THIS SHIFT SO UNABLE TO GIVE SUPPLEMENTAL FEEDING, 30 ML FLUSH AFTER FEEDINGS/MEDS, FREQ REQUESTS FOR PAIN MEDS, PT AWAKE ALL NOC WAITING FOR NEXT DOSE, 4L NC, 1 PA W/FWW BUT PT RESISTANT TO USING WALKER.
[2018-02-26 05:40] LABS: Hematocrit 32.4 % (37.0-53.0); Hemoglobin 10.7 g/dL (13.5-17.5); Mean Corpuscular HGB 31.8 pg (26.0-34.0); Mean Corpuscular Volume 96 fL (80-100); Mean Platelet Volume 10.8 fL (9.1-12.4); Platelet Count 174 K/mm3 (150-400); RDW Coefficient Variation 12.8 % (11.7-14.2); Red Blood Cell Count 3.37 M/mm3 (4.30-5.90); White Blood Cell Count 16.71 K/mm3 (4.00-11.30)
[2018-02-26 06:03] LABS: Alanine Aminotransfer (ALT/SGP 33 U/L (12-78); Albumin, Blood 2.7 g/dL (3.4-5.0); Albumin/Globulin Ratio 0.7 (0.8-1.8); Alk Phos 60 U/L (50-136); Anion Gap 7 mmol/L (6-16); Aspartate Aminotrans (AST/SGOT 18 U/L (12-37); Bilirubin, Total 0.2 mg/dL (0.1-1.0); Blood Urea Nitrogen 19 mg/dL (8-24); Bun/Creatinine Ratio 24.4 (12.0-20.0); CO2, Blood 23 mmol/L (21-32); Calcium, Blood 8.3 mg/dL (8.5-10.1); Chloride, Blood 110 mmol/L (98-108); Creatinine, Blood 0.78 mg/dL (0.60-1.20); Globulin, Blood 3.7 g/dL (2.2-4.0); Glomerular Filtration Rate >60 (60-); Glucose, Blood 171 mg/dL (70-99); Potassium, Blood 4.1 mmol/L (3.5-5.5); Sodium, Blood 140 mmol/L (136-145); Total Protein, Blood 6.4 g/dL (6.4-8.2)
--- NOTE | 2018-02-26 18:36 | NUR ---
PATIENT ALERT AND ORIENTED. UNLABORED RESPIRATIONS. REVIEW TUBE FEEDING TECHNIQUES SO PATIENT DOES NOT GET ASPIRATION PNEUMONIA AGAIN AND DECREASE GERD. VSS. STS FEELING BETTER THAN WHEN ADMITTED. BED IN LOW POSITION. CALL LIGHT WITHIN REACH. WILL CONTINUE TO MONITOR.
--- NOTE | 2018-02-27 04:54 | NUR ---
VSS, AFEBRILE, A/O, INDEPENDENT IN THE ROOM WHEN NOT ATTACHED TO IV POLE OR FEEDING PUMP. TUBE FEEDINGS VIA KANGAROO PUMP EVERY 4 HRS. PT TOLERATING FEEDINGS WELL W/LITTLE RESIDUAL. HOWEVER, HE IS RELUCTANT TO INCREASE BOLUS DOSE. 20G L HAND, TELE: NSR, 3L NC. PMHX: COPD, HTN, HOME 02 USE. STILL NOT SLEEPING VERY MUCH AT [facility].
[2018-02-27 05:39] LABS: Alanine Aminotransfer (ALT/SGP 31 U/L (12-78); Albumin, Blood 2.8 g/dL (3.4-5.0); Albumin/Globulin Ratio 0.8 (0.8-1.8); Alk Phos 55 U/L (50-136); Anion Gap 7 mmol/L (6-16); Aspartate Aminotrans (AST/SGOT 17 U/L (12-37); Bilirubin, Total 0.2 mg/dL (0.1-1.0); Blood Urea Nitrogen 22 mg/dL (8-24); Bun/Creatinine Ratio 29.2 (12.0-20.0); CO2, Blood 24 mmol/L (21-32); Calcium, Blood 8.5 mg/dL (8.5-10.1); Chloride, Blood 110 mmol/L (98-108); Creatinine, Blood 0.75 mg/dL (0.60-1.20); Globulin, Blood 3.7 g/dL (2.2-4.0); Glomerular Filtration Rate >60 (60-); Glucose, Blood 250 mg/dL (70-99); Potassium, Blood 3.8 mmol/L (3.5-5.5); Sodium, Blood 141 mmol/L (136-145); Total Protein, Blood 6.5 g/dL (6.4-8.2)
[2018-02-27 06:11] LABS: BASOPHILS ABSOLUTE AUTO 0.01 K/mm3 (0.00-0.23); BASOPHILS PERCENT AUTO 0 % (0-2); EOSINOPHILS PERCENT AUTO 0 % (0-6); Hematocrit 32.2 % (37.0-53.0); Hemoglobin 10.6 g/dL (13.5-17.5); IMMATURE GRAN ABSOLUTE AUTO 0.14 K/mm3 (0.00-0.10); IMMATURE GRAN PERCENT AUTO 1 % (0-1); LYMPHOCYTES ABSOLUTE AUTO 0.57 K/mm3 (0.84-5.20); LYMPHOCYTES PERCENT AUTO 3 % (21-46); MONOCYTES PERCENT AUTO 3 % (4-13); Mean Corpuscular HGB 31.5 pg (26.0-34.0); Mean Corpuscular HGB Conc 32.9 g/dL (31.5-36.5); Mean Corpuscular Volume 96 fL (80-100); NEUTROPHILS PERCENT AUTO 93 % (41-73); Platelet Count 192 K/mm3 (150-400); RDW Coefficient Variation 13.2 % (11.7-14.2); RDW Standard Deviation 46.4 fL (35.1-46.3); Red Blood Cell Count 3.36 M/mm3 (4.30-5.90); White Blood Cell Count 19.22 K/mm3 (4.00-11.30)
[2018-02-27] MEDS ORDERED: TRAZ100 PT (14:00)
[2018-02-27] MEDS ORDERED: AMOCLA500 PT (14:02)
--- NOTE | 2018-02-27 14:58 | NUR ---
PT DISCHARGED AT 1430 WITH TO TRANSPORT. EDUCATION HAS BEEN GIVING ON PEG TUBE FEEDING BY THIS [facility] DRI[facility] AND [facility]ERAP[facility]LL DIETARY. PT AND HAVE BEEN INSTRUCTED THROUROUGHLY AND DEMINSTRATED BY DOING LAST FEEDING ON THEIR OWN PRIOR TO LEAVING. BOTH STATED THEY FELT CONFIDENT THEY CAN DO FEEDING CORRECTLY. ALL BELONGINGS WERE TAKEN AND PT WHEELCHAIRED TO CAR BY THIS CHURN DRILLER NO DISTRESS NOTED. NEEDED MEDICATIONS FAXED TO [facility] IN [place]. PT AOX4 WITH AND COOPERATIVE OF ALL CARE TODAY.
[2018-04-09] MEDS ORDERED: FENT50TP TOP (08:08)
[2018-04-09] MEDS ORDERED: Morphine S10 MG/5 ML PT (08:10)
[2018-04-09] MEDS ORDERED: ALBU3IS INH (08:10)
[2018-04-09] MEDS ORDERED: BUDE.25 NEB (08:11)
[2018-04-09] MEDS ORDERED: ASPI81CH PT (08:11)
[2018-04-09] MEDS ORDERED: CARV3.125 PT (08:11)
[2018-04-09] MEDS ORDERED: ESCI10 PT (08:12)
[2018-04-09] MEDS ORDERED: CETI5 PT (08:12)
[2018-04-09] MEDS ORDERED: LOVA40 PT (08:12)
[2018-04-09] MEDS ORDERED: TRAZ50 PT (08:13)
[2018-04-09] MEDS ORDERED: MIRALAX17 GM PT (08:13)
[2018-04-09] MEDS ORDERED: PRED5EL PT (08:13)
[2018-04-09] MEDS ORDERED: DOXA4 PT (08:13)
[2018-04-09] MEDS ORDERED: FAMO40 PT (08:14)
[2018-04-09] MEDS ORDERED: GABA300 PO (08:14)
[2018-04-09] MEDS ORDERED: GABA600 PO (08:14)
[2018-04-09] MEDS ORDERED: LEVO750 PO (11:22)
== END 2018-02-27 14:34 | disposition home or self-care (01) | DRG 871 ==
LOC: ER 04:08 → ERHOLD 05:13 → MEDS 08:51 → ENPENDDIS 02-27 11:03 → MEDS 02-27 14:34
PROVIDERS: Emergency Medicine; Family Medicine; ADMIT Internal Medicine
DX: A41.9 Sepsis, unspecified organism (principal); J69.0 Pneumonitis due to inhalation of food and vomit; J96.21 Acute and chronic respiratory failure with hypoxia; J44.1 Chronic obstructive pulmonary disease with (acute) exacerbation; I50.42 Chronic combined systolic (congestive) and diastolic (congestive) heart failure; F11.20 Opioid dependence, uncomplicated; E87.2 Acidosis; J84.9 Interstitial pulmonary disease, unspecified; R65.20 Severe sepsis without septic shock; Z99.81 Dependence on supplemental oxygen; Z79.82 Long term (current) use of aspirin; I25.2 Old myocardial infarction; G89.4 Chronic pain syndrome; R13.12 Dysphagia, oropharyngeal phase
CPT/HCPCS: 36415; 71045; 71046; 80053; 81001; 83605; 85025; 85027; 87040; 87070; 87077; 87086; 87102; 87106; 87186; 87205; 87486; 87581; 87633; 87798; 87804; 92610; 93005; 93010; 94640; 94760; 96361; 96365; 96366; 96375; 96376; 97110; 97116; 97161; 97165; 97530; 97535; 99281; 99285-25; J1100; J1650; J1956; J2270; J2405; J2543; J2930; J7030; J7050

== ENCOUNTER 2018-08-02 06:36 | Inpatient (IN) | payer MEDICARE ==
[~2018-08-02] VITALS: Ht 185.4 cm; Wt 76.2 kg
[~2018-08-02 06:36] MED LIST changes: +ACET500 UD; +AMOCLA500 PT; +ASPI81CH PT; +CARV3.125 PT; +CETI5 PT; +DOXA4 PO; +ESCI10 PT; +FAMO20 PO; +FENT50TP TOP; +GABA600 PT; +Lovastatin20 MG PT; +Morphine S10 MG/5 ML PT; +Prednisone2.5 MG PT; +Pulmicort0.5 MG/2 M NEB; +TRAZ100 PT; +TRAZ50 PT
[2018-08-02 07:11] LABS: BASOPHILS ABSOLUTE AUTO 0.05 K/mm3 (0.00-0.23); BASOPHILS PERCENT AUTO 0 % (0-2); EOSINOPHILS ABSOLUTE AUTO 0.16 K/mm3 (0.00-0.68); EOSINOPHILS PERCENT AUTO 1 % (0-6); Hematocrit 37.9 % (37.0-53.0); Hemoglobin 12.4 g/dL (13.5-17.5); IMMATURE GRAN ABSOLUTE AUTO 0.07 K/mm3 (0.00-0.10); IMMATURE GRAN PERCENT AUTO 0 % (0-1); LYMPHOCYTES ABSOLUTE AUTO 2.36 K/mm3 (0.84-5.20); LYMPHOCYTES PERCENT AUTO 14 % (21-46); MONOCYTES ABSOLUTE AUTO 2.19 K/mm3 (0.16-1.47); MONOCYTES PERCENT AUTO 13 % (4-13); Mean Corpuscular HGB 31.8 pg (26.0-34.0); Mean Corpuscular HGB Conc 32.7 g/dL (31.5-36.5); Mean Corpuscular Volume 97 fL (80-100); Mean Platelet Volume 11.2 fL (9.1-12.4); NEUTROPHILS ABSOLUTE AUTO 12.28 K/mm3 (1.96-9.15); NEUTROPHILS PERCENT AUTO 72 % (41-73); Platelet Count 167 K/mm3 (150-400); RDW Coefficient Variation 14.8 % (11.7-14.2); RDW Standard Deviation 52.8 fL (35.1-46.3); White Blood Cell Count 17.11 K/mm3 (4.00-11.30)
[2018-08-02 07:25] LABS: Source, Urine Catheter
[2018-08-02 07:27] LABS: Bilirubin, Urine Neg (Neg); Blood, Urine 1+ (Neg); Glucose Qualitative, Urine Neg (Neg); Ketones, Urine Neg (Neg); Leukocyte Esterase, Urine 2+ (Neg); Nitrite, Urine Pos (Neg); Protein, Urine Neg (Neg); Urobilinogen, Urine NORM (Normal)
[2018-08-02 07:30] LABS: Alanine Aminotransfer (ALT/SGP 33 U/L (12-78); Albumin, Blood 3.9 g/dL (3.4-5.0); Albumin/Globulin Ratio 1.1 (0.8-1.8); Alk Phos 93 U/L (50-136); Anion Gap 8 mmol/L (6-16); Aspartate Aminotrans (AST/SGOT 19 U/L (12-37); Bilirubin, Total 0.6 mg/dL (0.1-1.0); Blood Urea Nitrogen 34 mg/dL (8-24); Bun/Creatinine Ratio 31.8 (12.0-20.0); CO2, Blood 28 mmol/L (21-32); Calcium, Blood 9.3 mg/dL (8.5-10.1); Chloride, Blood 106 mmol/L (98-108); Creatinine, Blood 1.07 mg/dL (0.60-1.20); Globulin, Blood 3.7 g/dL (2.2-4.0); Glomerular Filtration Rate >60 (60-); Glucose, Blood 107 mg/dL (70-99); Potassium, Blood 4.1 mmol/L (3.5-5.5); Sodium, Blood 142 mmol/L (136-145); Total Protein, Blood 7.6 g/dL (6.4-8.2); Troponin I 0.021 ng/mL (0.000-0.040)
[2018-08-02 07:31] LABS: Appearance, Urine Clear (Clear); Color, Urine Yellow (P-Yellow)
[2018-08-02 07:38] LABS: Bacteria Many /hpf; Red Blood Cells, Urine 0-2 /hpf (0-2); Squamous Epithelial Cells Not Seen /hpf (Few)
[2018-08-02] MEDS ORDERED: ZENPEP DR 25,01 EAC1 PT (13:09)
--- NOTE | 2018-08-02 19:15 | NUR ---
SHIFT SUMMARY: PATIENT ADMIT FROM ED THIS SHIFT. PT A&O; CALM AND COOPERATIVE WITH CARE. PO MEDS CRUSHED THROUGH PEG TUBE. TUBE FEEDINGS. PT UP WITH SBA c FWW TO BATHROOM. IV REHYDRATION; IV ABX CONTINUING. REPORT GIVEN TO ONCOMING RN.
[2018-08-03 05:09] LABS: BASOPHILS ABSOLUTE AUTO 0.02 K/mm3 (0.00-0.23); BASOPHILS PERCENT AUTO 0 % (0-2); EOSINOPHILS ABSOLUTE AUTO 0.17 K/mm3 (0.00-0.68); EOSINOPHILS PERCENT AUTO 1 % (0-6); Hemoglobin 10.7 g/dL (13.5-17.5); IMMATURE GRAN ABSOLUTE AUTO 0.05 K/mm3 (0.00-0.10); IMMATURE GRAN PERCENT AUTO 0 % (0-1); LYMPHOCYTES ABSOLUTE AUTO 1.36 K/mm3 (0.84-5.20); LYMPHOCYTES PERCENT AUTO 11 % (21-46); MONOCYTES ABSOLUTE AUTO 1.45 K/mm3 (0.16-1.47); MONOCYTES PERCENT AUTO 12 % (4-13); Mean Corpuscular HGB Conc 32.4 g/dL (31.5-36.5); Mean Corpuscular Volume 99 fL (80-100); Mean Platelet Volume 11.1 fL (9.1-12.4); NEUTROPHILS PERCENT AUTO 75 % (41-73); Platelet Count 146 K/mm3 (150-400); RDW Standard Deviation 54.8 fL (35.1-46.3); Red Blood Cell Count 3.34 M/mm3 (4.30-5.90); White Blood Cell Count 11.95 K/mm3 (4.00-11.30)
[2018-08-03 05:34] LABS: Anion Gap 7 mmol/L (6-16); Blood Urea Nitrogen 28 mg/dL (8-24); Bun/Creatinine Ratio 33.8 (12.0-20.0); CO2, Blood 24 mmol/L (21-32); Calcium, Blood 8.2 mg/dL (8.5-10.1); Chloride, Blood 113 mmol/L (98-108); Creatinine, Blood 0.83 mg/dL (0.60-1.20); Glomerular Filtration Rate >60 (60-); Glucose, Blood 100 mg/dL (70-99); Magnesium, Blood 2.3 mg/dL (1.6-2.4); Phosphorus, Blood 2.6 mg/dL (2.5-4.9); Sodium, Blood 144 mmol/L (136-145)
--- NOTE | 2018-08-03 05:38 | NUR ---
a+o, tube patent flushed post medication, pt declined to be st cathed stating he wished to minimize chance of infection, also declined food both times offered during the night because he experinces acid reflux when he eats at night, cooperative, discussed ways to minimize nonsocomil infection, call light in reach, infusing ns with no s/sx of infection or infiltration, room air
--- NOTE | 2018-08-03 19:40 | NUR ---
SHIFT SUMMARY: NO ACUTE CHANGES TO REPORT THIS SHIFT. PT A&O; CALM AND COOPERATIVE WITH CARE. MEDICATED FOR PAIN PER EMAR, MEDS THROUGH PEG TUBE. BOLUS FEEDINGS THROUGH PEG TUBE. IV ABX CONTINUING. REPORT GIVEN TO ONCOMING RN.
[2018-08-04 05:27] LABS: BASOPHILS ABSOLUTE AUTO 0.02 K/mm3 (0.00-0.23); BASOPHILS PERCENT AUTO 0 % (0-2); EOSINOPHILS ABSOLUTE AUTO 0.08 K/mm3 (0.00-0.68); EOSINOPHILS PERCENT AUTO 1 % (0-6); Hematocrit 32.3 % (37.0-53.0); Hemoglobin 10.3 g/dL (13.5-17.5); IMMATURE GRAN ABSOLUTE AUTO 0.02 K/mm3 (0.00-0.10); IMMATURE GRAN PERCENT AUTO 0 % (0-1); LYMPHOCYTES ABSOLUTE AUTO 1.07 K/mm3 (0.84-5.20); LYMPHOCYTES PERCENT AUTO 17 % (21-46); MONOCYTES PERCENT AUTO 13 % (4-13); Mean Corpuscular HGB 31.4 pg (26.0-34.0); Mean Corpuscular HGB Conc 31.9 g/dL (31.5-36.5); Mean Corpuscular Volume 99 fL (80-100); NEUTROPHILS ABSOLUTE AUTO 4.18 K/mm3 (1.96-9.15); NEUTROPHILS PERCENT AUTO 68 % (41-73); Platelet Count 136 K/mm3 (150-400); RDW Coefficient Variation 14.6 % (11.7-14.2); RDW Standard Deviation 52.6 fL (35.1-46.3); Red Blood Cell Count 3.28 M/mm3 (4.30-5.90); White Blood Cell Count 6.17 K/mm3 (4.00-11.30)
[2018-08-04 05:49] LABS: Anion Gap 7 mmol/L (6-16); Blood Urea Nitrogen 19 mg/dL (8-24); Bun/Creatinine Ratio 23.8 (12.0-20.0); CO2, Blood 24 mmol/L (21-32); Calcium, Blood 8.2 mg/dL (8.5-10.1); Chloride, Blood 115 mmol/L (98-108); Glomerular Filtration Rate >60 (60-); Glucose, Blood 97 mg/dL (70-99); Phosphorus, Blood 2.7 mg/dL (2.5-4.9); Potassium, Blood 4.4 mmol/L (3.5-5.5); Sodium, Blood 146 mmol/L (136-145)
[2018-08-04] MEDS ORDERED: ALBU3IS INH (10:47)
[2018-08-04] MEDS ORDERED: CEFP200 PO (10:47)
[2018-08-04] MEDS ORDERED: LEVO750 PO (10:48)
[2018-08-04] MEDS ORDERED: Aspirin EC81 MG PT (10:54)
[2018-08-04] MEDS ORDERED: Fentanyl1 EACH TOP (10:59)
--- NOTE | 2018-08-04 13:11 | NUR ---
PATIENT DISCHARGE: PATIENT DISCHARGED TO HOME THIS SHIFT. MEDICATION RECONCILIATION COMPLETED; MED LIST FAXED TO [facility]. DISCHARGE EDUCATION COMPLETED WITH PATIENT AND FAMILY. PATIENT TRANSPORTED TO EXIT BY [facility] STAFF WITH WHEELCHAIR AT 1250. PATIENT DEPARTED [facility] VIA PRIVATE AUTO.
== END 2018-08-04 12:45 | disposition home or self-care (01) | DRG 871 ==
LOC: ER 06:36 → MEDS 08:55 → ENPENDDIS 08-04 09:23 → MEDS 08-04 12:45
PROVIDERS: Emergency Medicine; Hospitalist; ADMIT Family Medicine
DX: A41.9 Sepsis, unspecified organism (principal); J69.0 Pneumonitis due to inhalation of food and vomit; N39.0 Urinary tract infection, site not specified; I50.42 Chronic combined systolic (congestive) and diastolic (congestive) heart failure; J44.9 Chronic obstructive pulmonary disease, unspecified; Z99.81 Dependence on supplemental oxygen; R09.02 Hypoxemia; I65.23 Occlusion and stenosis of bilateral carotid arteries; I11.0 Hypertensive heart disease with heart failure; E78.5 Hyperlipidemia, unspecified; F32.9 Major depressive disorder, single episode, unspecified; G47.00 Insomnia, unspecified; I25.10 Atherosclerotic heart disease of native coronary artery without angina pectoris; K21.9 Gastro-esophageal reflux disease without esophagitis; N40.0 Benign prostatic hyperplasia without lower urinary tract symptoms; G89.4 Chronic pain syndrome; Z88.5 Allergy status to narcotic agent; Z88.8 Allergy status to other drugs, medicaments and biological substances; Z79.82 Long term (current) use of aspirin; Z79.52 Long term (current) use of systemic steroids; Z79.899 Other long term (current) drug therapy; Z87.891 Personal history of nicotine dependence; I25.2 Old myocardial infarction
CPT/HCPCS: 36415; 71046; 80048; 80053; 81001; 83605; 83735; 83880; 84100; 84484; 85025; 86140; 87040; 87077; 87086; 87186; 94640; 94760; 96361; 96365; 96367; 96368; 99285-25; J0696; J1650; J1956; J2543; J3370; J7030; J7512

== ENCOUNTER 2018-08-20 09:54 | Inpatient (IN) | payer MEDICARE ==
[~2018-08-20] VITALS: Ht 188 cm; Wt 76.0 kg
[~2018-08-20 09:54] MED LIST changes: +Aspirin EC81 MG PT; +CEFP200 PO; +Fentanyl1 EACH TOP; +ZENPEP DR 25,01 EAC1 PT
[2018-08-20 10:32] LABS: BASOPHILS ABSOLUTE AUTO 0.03 K/mm3 (0.00-0.23); BASOPHILS PERCENT AUTO 0 % (0-2); EOSINOPHILS ABSOLUTE AUTO 0.08 K/mm3 (0.00-0.68); EOSINOPHILS PERCENT AUTO 1 % (0-6); Hematocrit 35.5 % (37.0-53.0); Hemoglobin 11.5 g/dL (13.5-17.5); IMMATURE GRAN ABSOLUTE AUTO 0.03 K/mm3 (0.00-0.10); IMMATURE GRAN PERCENT AUTO 0 % (0-1); LYMPHOCYTES PERCENT AUTO 13 % (21-46); MONOCYTES ABSOLUTE AUTO 0.53 K/mm3 (0.16-1.47); MONOCYTES PERCENT AUTO 6 % (4-13); Mean Corpuscular HGB 31.7 pg (26.0-34.0); Mean Corpuscular HGB Conc 32.4 g/dL (31.5-36.5); Mean Corpuscular Volume 98 fL (80-100); Mean Platelet Volume 11.1 fL (9.1-12.4); NEUTROPHILS ABSOLUTE AUTO 7.51 K/mm3 (1.96-9.15); NEUTROPHILS PERCENT AUTO 80 % (41-73); Platelet Count 186 K/mm3 (150-400); RDW Coefficient Variation 14.5 % (11.7-14.2); RDW Standard Deviation 52.2 fL (35.1-46.3); Red Blood Cell Count 3.63 M/mm3 (4.30-5.90); White Blood Cell Count 9.38 K/mm3 (4.00-11.30)
[2018-08-20 10:55] LABS: Alanine Aminotransfer (ALT/SGP 34 U/L (12-78); Albumin, Blood 3.3 g/dL (3.4-5.0); Albumin/Globulin Ratio 0.9 (0.8-1.8); Alk Phos 78 U/L (50-136); Anion Gap 7 mmol/L (6-16); Aspartate Aminotrans (AST/SGOT 23 U/L (12-37); Bilirubin, Total 0.4 mg/dL (0.1-1.0); Blood Urea Nitrogen 30 mg/dL (8-24); Bun/Creatinine Ratio 33.1 (12.0-20.0); CO2, Blood 26 mmol/L (21-32); Calcium, Blood 8.7 mg/dL (8.5-10.1); Chloride, Blood 110 mmol/L (98-108); Creatinine, Blood 0.91 mg/dL (0.60-1.20); Globulin, Blood 3.5 g/dL (2.2-4.0); Glomerular Filtration Rate >60 (60-); Glucose, Blood 75 mg/dL (70-99); Potassium, Blood 4.1 mmol/L (3.5-5.5); Sodium, Blood 143 mmol/L (136-145); Total Protein, Blood 6.8 g/dL (6.4-8.2); Troponin I <0.015 ng/mL (0.000-0.040)
[2018-08-20] MEDS ORDERED: MIRALAX17 GM PO (11:20)
[2018-08-20] MEDS ORDERED: DOXA4 PT (12:42)
[2018-08-20] MEDS ORDERED: MIRALAX17 GM PT (12:44)
[2018-08-20] MEDS ORDERED: CULTURELLE1 EACH PT (14:02)
--- NOTE | 2018-08-20 19:25 | NUR ---
END OF SHIFT SUMMARY: PATIENT UP TO UNIT AT 16:15. PATIENT RESTING COMFORTABLY IN BED FOR THE REST OF THE SHIFT. PATIENT DENIES SOB AT REST. PATIENT UP TO THE RESTROOM. PATIENT ABLE TO STAND ON OWN. UTILIZED THE RN A SBA. STEADY ON HIS FEET. NO SOB NOTED WITH AMBULATION. LUNG SOUNDS ARE COARSE. PATIENT ALERT AND ORIENTED. PATIENT NPO. PATIENT REPORTS SOME ANXIETY AND PAIN. REPORTED TO NOC RN.
[2018-08-20 19:51] LABS: PCO2 Arterial 32.2 mmHg (35-45); PO2 Arterial 47.7 mmHg (80-100); pH Blood Arterial 7.46 (7.35-7.45)
[2018-08-21 05:38] LABS: Hematocrit 35.8 % (37.0-53.0); Hemoglobin 11.5 g/dL (13.5-17.5); Mean Corpuscular HGB 32.1 pg (26.0-34.0); Mean Corpuscular HGB Conc 32.1 g/dL (31.5-36.5); Mean Corpuscular Volume 100 fL (80-100); Mean Platelet Volume 11.6 fL (9.1-12.4); Platelet Count 180 K/mm3 (150-400); RDW Coefficient Variation 14.7 % (11.7-14.2); RDW Standard Deviation 54.4 fL (35.1-46.3); Red Blood Cell Count 3.58 M/mm3 (4.30-5.90); White Blood Cell Count 14.05 K/mm3 (4.00-11.30)
--- NOTE | 2018-08-21 05:56 | NUR ---
SHIFT SUMMARY PT IS A 73 Y/O MALE, ADMITTED FOR PNA. HE IS A&O X 3, AND A 1PA IN THE ROOM. AT THE START OF SHIFT, THE PT BEGAN TO DESAT DOWN TO THE 80S. HE WAS INCREASED UP TO 15L VIA HIGH FLOW OXIMIZER BY RESPIRATORY THERAPY, BUT WAS STILL SATTING AT 86-87. AT THAT TIME THE RESPIRATORY THERAPIST SUGGEST EITHER AIRVO OR CPAP. THE HOSPITALIST TIFFANIE ODONNELL WAS CONSULTED, AND AN ABG AND AIRVO SYSTEM WERE ORDERED. PER RT, THE PT WAS SET UP TO THE HIGHEST AIRVO SETTINGS, AND CAME UP TO 90-91% O2. THROUGH THE NIGHT, THE PT'S SATS IMPROVED PER THE CONTINUOUS BIOX MONITOR, AND HE WAS TITRATED DOWN TO 60L AT 70% PER RT AND IS CURRENTLY AT 96-97% O2. ALL OTHER VITALS REMAINED STABLE. PT DENIED ANY COMPLAINTS OF SOB, EVEN WHEN HIS SATS WERE DECREASED, WITH NO APPARENT S/S OF DISTRESS. NO COMPLAINTS OF PAIN OR NAUSEA. NO OTHER ACUTE CHANGES IN PT CONDITION NOTED DURING THE NIGHT. WILL CONTINUE TO MONITOR AND TREAT PER EMAR UNTIL HAND OFF TO DAY SHIFT.
[2018-08-21 06:03] LABS: Magnesium, Blood 2.3 mg/dL (1.6-2.4)
[2018-08-21 06:06] LABS: Alanine Aminotransfer (ALT/SGP 37 U/L (12-78); Albumin/Globulin Ratio 0.8 (0.8-1.8); Alk Phos 69 U/L (50-136); Anion Gap 10 mmol/L (6-16); Aspartate Aminotrans (AST/SGOT 26 U/L (12-37); Blood Urea Nitrogen 35 mg/dL (8-24); Bun/Creatinine Ratio 28.9 (12.0-20.0); CO2, Blood 23 mmol/L (21-32); Calcium, Blood 8.4 mg/dL (8.5-10.1); Chloride, Blood 110 mmol/L (98-108); Creatinine, Blood 1.21 mg/dL (0.60-1.20); Globulin, Blood 3.6 g/dL (2.2-4.0); Glomerular Filtration Rate >60 (60-); Glucose, Blood 134 mg/dL (70-99); Potassium, Blood 4.3 mmol/L (3.5-5.5); Sodium, Blood 143 mmol/L (136-145); Total Protein, Blood 6.6 g/dL (6.4-8.2)
[2018-08-21 06:15] LABS: BAND PERCENT MAN 19 % (0-8); BASOPHILS ABSOLUTE MAN 0.14 K/mm3 (0.00-0.23); BASOPHILS PERCENT MAN 1 % (0-2); EOSINOPHILS PERCENT MAN 0 % (0-6); LYMPHOCYTES PERCENT MAN 5 % (21-46); METAMYELOCYTE ABSOLUTE MAN 0.56 K/mm3 (0.00-0.00); METAMYELOCYTE PERCENT MAN 4 % (0-0); MONOCYTES PERCENT MAN 5 % (4-13); NEUTROPHILS ABSOLUTE MAN 11.94 K/mm3 (1.96-9.15); SEG NEUTROPHILS PERCENT MAN 66 % (41-73); TOTAL CELLS COUNTED 100
--- NOTE | 2018-08-21 13:08 | NUR ---
Initial Visit: Palliative Care Consult for Medically Fragile and Readmission. Pt is A&O and reports a tolerable 7/10 pain in his back. He denies dyspnea at rest and anxiety at this time. He reports dyspnea and anxiety with exertion and states last hospitalization he received Xanax and was benfeficial. Engaged in therapeutic discussion regarding goals of care. Pt reports he lives with his and does not practice any rastafarian. Pt reports adequate support at home and at baseline is independent with his ADL's. Engaged in discussion regarding disease process and he states he knows all there is to know regarding his COPD and aspiration PNA. Discussed high risk readmission program and Pt denies need at this time. Pt very short with response to question and discussion. Pt appears withdrawn. Pt reports only concern is to have Xanax available for anxiety. Called and spoke with Dr Myers and placed order for Xanax .25mg PT Q 8 hours PRN for anxiety per V/O from Dr Myers. Palliative Care will remain available.
--- NOTE | 2018-08-21 16:51 | NUR ---
SHIFT SUMMARY: PT IS A/O X 3 THIS SHIFT WITH X 1 C/O PAIN AND PAIN MEDS GIVEN ORDERED. PT CONTINUES ON BE ON A HIGH FLOW CONCENTRATOR @ 45 LPM, MANAGED BY RT AND HAS NO SOB OR S/S OF RESPIRATORY DISTRESS AND HAS BEEN SATING IN THE HIGH 90'S ALL DAY. PEG TUBE IS PATENT. WAS AT BEDSIDE THIS AM AND IS AN ADVOCATE FOR HIS CARE. PT IS COOPERATIVE WITH CARE AND CALLS FOR HELP APPROPRIATELY.
[2018-08-22 05:18] LABS: Hematocrit 31.7 % (37.0-53.0); Hemoglobin 10.5 g/dL (13.5-17.5); Mean Corpuscular HGB 31.9 pg (26.0-34.0); Mean Corpuscular HGB Conc 33.1 g/dL (31.5-36.5); Mean Platelet Volume 11.6 fL (9.1-12.4); Platelet Count 165 K/mm3 (150-400); RDW Coefficient Variation 14.6 % (11.7-14.2); RDW Standard Deviation 51.9 fL (35.1-46.3); Red Blood Cell Count 3.29 M/mm3 (4.30-5.90); White Blood Cell Count 14.82 K/mm3 (4.00-11.30)
[2018-08-22 05:19] LABS: Mean Corpuscular Volume 96 fL (80-100)
[2018-08-22 05:44] LABS: Anion Gap 6 mmol/L (6-16); Blood Urea Nitrogen 40 mg/dL (8-24); Bun/Creatinine Ratio 41.3 (12.0-20.0); CO2, Blood 26 mmol/L (21-32); Calcium, Blood 8.3 mg/dL (8.5-10.1); Chloride, Blood 107 mmol/L (98-108); Creatinine, Blood 0.97 mg/dL (0.60-1.20); Glomerular Filtration Rate >60 (60-); Glucose, Blood 168 mg/dL (70-99); Sodium, Blood 139 mmol/L (136-145)
--- NOTE | 2018-08-22 07:08 | NUR ---
SHIFT SUMMARY: PT RESTED COMFORTABLY ALL SHIFT, TOLERATED PEG TUBE FEEDINGS WELL WITH NO FULLNESS OR NAUSEA NOTED OR VOICED. THIS NURSE CHANGED PEG TUBE INSERTION SITE DRESSING--SITE CLEAN AND WITHOUT S/S OF INFECTION (NEW DRAIN SPONGES APPLIED AND DATED). PT DENIES PAIN OR NAUSEA. PTS BED LOW POSITION, CALL LIGHT AT SIDE. PT ALERT AND ORIENTED X 4.
--- NOTE | 2018-08-22 16:42 | NUR ---
SHIFT SUMMARY: PT HAS BEEN RESTING IN BED THIS SHIFT READING HIS BOOK A/O X 3 WITH C/O CHRONIC LOW BACK PAIN , AND PAIN MEDS WERE GIVEN ORDERED. PT CONTINUES ON TUBE FEED AND G-TUBE IS PATENT. RECEIVED ORDER FOR ABDOMINAL BINDER AT PTS REQUEST AND IT WAS PLACED FOR COMFORT. RT WEENED PT DOWN TO 4 LPM VIA N.C. AND PT HAS HAD NO SOB OR S/S OF RESP DISTRESS THIS SHIFT. IV FLUIDS/ABO RAN THROUGH PERIPHERAL LINE WITH NO ISSUE. PT X 1 ASSIST TO TOILET. PT USES CALL LIGHT FOR ASSIST WHEN NEEDED.
--- NOTE | 2018-08-23 04:49 | NUR ---
SHIFT SUMMARY: 73 Y/O MALE RESTED COMFORTABLY ALL SHIFT WHILE WEARING B/PAP MACHINE ALL SHIFT. PT TOLERATED PEG TUBE FEEDINGS WELL WITH NO ISSUES NOTED OR VOICED. PT IS KNOWLEDGEABLE AND CAPABLE OF PERFORMING OWN TUBE FEEDINGS. PT IS WEARING ABDOMINAL BINDER OVER PEG TUBE FOR COMFORT. PT IS ALERT AND ORIENTED X 4. PTS LUNG SOUNDS ARE COARSE THROUGHOUT, DYSPNEA VOICED WITH MODERATE ACTIVITY WHILE WEARING O2 AT 4L/M PER NASAL CANNULA. PT DENIES ANXIETY, PAIN OR NAUSEA. PTS BED LOW POSITION, CALL LIGHT AT SIDE.
[2018-08-23] MEDS ORDERED: LEVO750 PO (11:15)
--- NOTE | 2018-08-23 14:21 | NUR ---
DISCHARGE SUMMARY PATIENT PLEASANT. ALL DISCHARGE INFORMATION GIVEN TO THE PATIENT. ALL PRINTOUTS TALKED THROUGH WITH THE PATIENT. NO ACUTE CONCERNS AT TIME OF DISCHARGE. PATIENT WHEELED DOWN WITH O2 AT TIME OF DISCHARGE. IV REMOVED.
== END 2018-08-23 13:00 | disposition home or self-care (01) | DRG 871 ==
LOC: ER 09:54 → MEDS 14:24
PROVIDERS: Emergency Medicine; Internal Medicine; Nurse Practitioner Acute Care; ADMIT Internal Medicine
PROC: 5A09357 Assistance with Respiratory Ventilation, Less than 24 Consecutive Hours, Continuous Positive Airway Pressure (ICD-10-PCS; principal; 2018-08-22)
DX: A41.9 Sepsis, unspecified organism (principal); J15.1 Pneumonia due to Pseudomonas; J69.0 Pneumonitis due to inhalation of food and vomit; J84.9 Interstitial pulmonary disease, unspecified; I50.42 Chronic combined systolic (congestive) and diastolic (congestive) heart failure; J44.0 Chronic obstructive pulmonary disease with (acute) lower respiratory infection; J96.10 Chronic respiratory failure, unspecified whether with hypoxia or hypercapnia; F11.20 Opioid dependence, uncomplicated; R65.20 Severe sepsis without septic shock; R13.10 Dysphagia, unspecified; I11.0 Hypertensive heart disease with heart failure; Z99.81 Dependence on supplemental oxygen; G89.4 Chronic pain syndrome; Z93.1 Gastrostomy status; I25.10 Atherosclerotic heart disease of native coronary artery without angina pectoris; K21.9 Gastro-esophageal reflux disease without esophagitis; N40.0 Benign prostatic hyperplasia without lower urinary tract symptoms; Z87.891 Personal history of nicotine dependence
CPT/HCPCS: 36415; 36600; 71046; 80048; 80053; 82803; 83605; 83735; 83880; 84484; 85025; 85027; 87040; 87070; 87077; 87186; 87205; 93005; 93010; 94640; 94760; 94762; 96365; 96366; 96372; 96375; 96376; 99285-25; G0378; J1650; J1956; J2270; J2543; J2930; J7050; J7512

== ENCOUNTER → 2018-09-27 | Outpatient (CLI) | payer MEDICARE ==
[~2018-09-27] MED LIST changes: +CULTURELLE1 EACH PT; +DOXA4 PT; +MIRALAX17 GM PT
[2018-09-27 12:23] LABS: Source, Urine Clean Catch
[2018-09-27 13:27] LABS: Bilirubin, Urine Neg (Neg); Blood, Urine Neg (Neg); Glucose Qualitative, Urine Neg (Neg); Ketones, Urine Neg (Neg); Leukocyte Esterase, Urine 2+ (Neg); Nitrite, Urine Neg (Neg); Protein, Urine Neg (Neg); Urobilinogen, Urine NORM (Normal)
[2018-09-27 14:12] LABS: Appearance, Urine Clear (Clear); Color, Urine Yellow (P-Yellow)
[2018-09-27 14:32] LABS: Bacteria Rare /hpf; Red Blood Cells, Urine 0-2 /hpf (0-2); Squamous Epithelial Cells Rare /hpf (Few); Transitional Epithelial Cells Mod /hpf ({null, 0-Rare})
== END | disposition home or self-care (01) ==
LOC: LAB SHORT 12:21 → LAB SRC 12:21
PROVIDERS: Internal Medicine
DX: N39.0 Urinary tract infection, site not specified (principal)
CPT/HCPCS: 81001; 87077; 87086; 87186

== ENCOUNTER → 2019-01-27 | Outpatient (CLI) | payer MEDICARE ==
[2019-01-27 18:24] LABS: Source, Urine Voided
[2019-01-27 19:33] LABS: Bilirubin, Urine Neg (Neg); Blood, Urine 1+ (Neg); Glucose Qualitative, Urine Neg (Neg); Ketones, Urine Neg (Neg); Leukocyte Esterase, Urine 3+ (Neg); Nitrite, Urine Neg (Neg); Protein, Urine 1+ (Neg); Urobilinogen, Urine NORM (Normal)
[2019-01-27 19:48] LABS: Appearance, Urine Clear (Clear); Color, Urine Yellow (P-Yellow)
[2019-01-27 19:49] LABS: Red Blood Cells, Urine 0-2 /hpf (0-2); White Blood Cells, Urine TNTC /hpf (0-5)
[2019-01-27 19:50] LABS: Bacteria Few /hpf; Squamous Epithelial Cells Not Seen /hpf (Few)
== END | disposition home or self-care (01) ==
LOC: LAB SHORT 18:22 → LAB 18:22
PROVIDERS: Internal Medicine
DX: N39.0 Urinary tract infection, site not specified (principal)
CPT/HCPCS: 81001; 87077; 87086; 87186

== ENCOUNTER → 2019-01-31 | Outpatient (CLI) | payer MEDICARE ==
[2019-01-31 15:25] LABS: BASOPHILS ABSOLUTE AUTO 0.04 K/mm3 (0.00-0.23); BASOPHILS PERCENT AUTO 0 % (0-2); EOSINOPHILS ABSOLUTE AUTO 0.11 K/mm3 (0.00-0.68); EOSINOPHILS PERCENT AUTO 1 % (0-6); Hematocrit 28.5 % (37.0-53.0); Hemoglobin 9.4 g/dL (13.5-17.5); IMMATURE GRAN ABSOLUTE AUTO 0.27 K/mm3 (0.00-0.10); IMMATURE GRAN PERCENT AUTO 2 % (0-1); LYMPHOCYTES ABSOLUTE AUTO 1.41 K/mm3 (0.84-5.20); LYMPHOCYTES PERCENT AUTO 10 % (21-46); MONOCYTES ABSOLUTE AUTO 1.46 K/mm3 (0.16-1.47); MONOCYTES PERCENT AUTO 10 % (4-13); Mean Corpuscular Volume 100 fL (80-100); Mean Platelet Volume 10.8 fL (9.1-12.4); NEUTROPHILS ABSOLUTE AUTO 11.62 K/mm3 (1.96-9.15); NEUTROPHILS PERCENT AUTO 78 % (41-73); Platelet Count 156 K/mm3 (150-400); RDW Coefficient Variation 14.5 % (11.7-14.2); RDW Standard Deviation 53.1 fL (35.1-46.3); Red Blood Cell Count 2.85 M/mm3 (4.30-5.90); White Blood Cell Count 14.91 K/mm3 (4.00-11.30)
[2019-01-31 15:28] LABS: Calcium, Blood 8.2 mg/dL (8.5-10.1); Creatinine, Blood 1.56 mg/dL (0.60-1.20); Potassium, Blood 5.1 mmol/L (3.5-5.5)
== END ==
LOC: LAB EV 15:19 → LAB SHORT 15:19
PROVIDERS: Physician Assistant Surgical
DX: R06.02 Shortness of breath (principal)
CPT/HCPCS: 80048; 85025

== ENCOUNTER → 2019-04-22 | Outpatient (CLI) | payer MEDICARE ==
[2019-04-24 14:27] LABS: Stool Occult Bld Immuno 1 Positive (NEGATIVE); Stool Occult Bld Immuno 2 Positive (NEGATIVE)
== END | disposition home or self-care (01) ==
LOC: LAB SHORT 17:00 → LAB SRC 17:00 → LAB FUT 04-17 14:00
PROVIDERS: Internal Medicine Gastroenterology
DX: D50.9 Iron deficiency anemia, unspecified (principal)
CPT/HCPCS: 82274

== ENCOUNTER 2019-08-08 00:29 | Inpatient (IN) | payer MEDICARE ==
[~2019-08-08] VITALS: Ht 188 cm; Wt 77.2 kg
[~2019-08-08 00:29] MED LIST changes: +ACET500 PT; +CREON DR 12,001 EACH PT; +FERSU300 PT; +FLUT.05NI; +FURO40 PT; +MORP20ER PT; +MORP20L PT; +OMEP20ER PT; +POTA20PAC PT
[2019-08-08 00:56] LABS: BASOPHILS ABSOLUTE AUTO 0.04 K/mm3 (0.00-0.23); BASOPHILS PERCENT AUTO 0 % (0-2); EOSINOPHILS ABSOLUTE AUTO 0.18 K/mm3 (0.00-0.68); EOSINOPHILS PERCENT AUTO 1 % (0-6); Hemoglobin 10.8 g/dL (13.5-17.5); IMMATURE GRAN ABSOLUTE AUTO 0.04 K/mm3 (0.00-0.10); IMMATURE GRAN PERCENT AUTO 0 % (0-1); LYMPHOCYTES ABSOLUTE AUTO 2.22 K/mm3 (0.84-5.20); LYMPHOCYTES PERCENT AUTO 17 % (21-46); MONOCYTES ABSOLUTE AUTO 1.36 K/mm3 (0.16-1.47); MONOCYTES PERCENT AUTO 11 % (4-13); Mean Corpuscular HGB 31.4 pg (26.0-34.0); Mean Corpuscular HGB Conc 31.8 g/dL (31.5-36.5); Mean Corpuscular Volume 99 fL (80-100); Mean Platelet Volume 11.8 fL (9.1-12.4); NEUTROPHILS PERCENT AUTO 70 % (41-73); Platelet Count 111 K/mm3 (150-400); RDW Coefficient Variation 15.8 % (11.7-14.2); RDW Standard Deviation 57.1 fL (35.1-46.3); Red Blood Cell Count 3.44 M/mm3 (4.30-5.90); White Blood Cell Count 12.84 K/mm3 (4.00-11.30)
[2019-08-08 01:14] LABS: Alanine Aminotransfer (ALT/SGP 45 U/L (12-78); Albumin, Blood 3.5 g/dL (3.4-5.0); Albumin/Globulin Ratio 0.8 (0.8-1.8); Alk Phos 101 U/L (50-136); Anion Gap 1 mmol/L (6-16); Aspartate Aminotrans (AST/SGOT 36 U/L (12-37); Bilirubin, Total 0.5 mg/dL (0.1-1.0); Blood Urea Nitrogen 55 mg/dL (8-24); Bun/Creatinine Ratio 51.4 (12.0-20.0); CO2, Blood 33 mmol/L (21-32); Calcium, Blood 8.9 mg/dL (8.5-10.1); Chloride, Blood 102 mmol/L (98-108); Creatinine, Blood 1.07 mg/dL (0.60-1.20); Globulin, Blood 4.3 g/dL (2.2-4.0); Glomerular Filtration Rate >60 (60-); Glucose, Blood 109 mg/dL (70-99); Potassium, Blood 4.8 mmol/L (3.5-5.5); Sodium, Blood 136 mmol/L (136-145); Total Protein, Blood 7.8 g/dL (6.4-8.2); Troponin I <0.015 ng/mL (0.000-0.040)
[2019-08-08 01:45] LABS: PCO2 Arterial 41.3 mmHg (35-45); PO2 Arterial 68.1 mmHg (80-100); pH Blood Arterial 7.48 (7.35-7.45)
[2019-08-08 04:00] LABS: Source, Urine Catheter
[2019-08-08 04:08] LABS: Appearance, Urine Hazy (Clear); Bilirubin, Urine Neg (Neg); Blood, Urine 2+ (Neg); Color, Urine Pale Yellow (P-Yellow); Glucose Qualitative, Urine Neg (Neg); Ketones, Urine Neg (Neg); Leukocyte Esterase, Urine 3+ (Neg); Nitrite, Urine Pos (Neg); Protein, Urine Neg (Neg); Specific Gravity, Urine 1.005 (1.003-1.022); Urobilinogen, Urine NORM (Normal)
[2019-08-08 04:22] LABS: Bacteria Mod /hpf; Red Blood Cells, Urine 0-2 /hpf (0-2); Squamous Epithelial Cells Not Seen /hpf (Few); White Blood Cells, Urine TNTC /hpf (0-5)
[2019-08-08 06:07] LABS: Adenovirus Not Detected (NOT DETECT); Bordetella pertussis Not Detected (NOT DETECT); Chlamydophila pneumoniae Not Detected (NOT DETECT); Coronavirus 229E Not Detected (NOT DETECT); Coronavirus HKU1 Not Detected (NOT DETECT); Coronavirus NL63 Not Detected (NOT DETECT); Coronavirus OC43 Not Detected (NOT DETECT); Human Metapneumovirus Not Detected (NOT DETECT); Human Rhinovirus/Enterovirus Not Detected (NOT DETECT); Influenza A/2009-H1 Not Detected (NOT DETECT); Influenza A/H1 Not Detected (NOT DETECT); Influenza A/H3 Not Detected (NOT DETECT); Influenza B Not Detected (NOT DETECT); Mycoplasma pneumoniae Not Detected (NOT DETECT); Parainfluenza Virus 1 Not Detected (NOT DETECT); Parainfluenza Virus 2 Not Detected (NOT DETECT); Parainfluenza Virus 3 Not Detected (NOT DETECT); Parainfluenza Virus 4 Not Detected (NOT DETECT); Respiratory Syncytial Virus Not Detected (NOT DETECT)
--- NOTE | 2019-08-08 06:13 | NUR ---
ASSUMED PT CARE/END OF SHIFT SUMMARY PT ARRIVED ON UNIT FROM ED AROUND 0330 SECONDARY TO RESPIRATORY FAILURE R/T ASPIRATION. PT HAS A CHRONIC PEG TUBE THAT HE STATES HE HAS HAD FOR APPROXIMATELY 3 YEARS. PT IS SUPPOSED TO BE STRICT NPO AT HOME; HOWEVER, ADMITS THAT HE DID EAT YESTERDAY MORNING. HAS A HX OF CHRONIC ASPIRATION PNEUMONIA. PT DOESN'T RECALL WHAT FORMULA HE USES FOR HIS PEG TUBE; STATES HIS WOULD KNOW. CHANGE PEG DRESSING IT WAS NOTED TO HAVE MODERATE AMOUNTS OF BROWN/YELLOW DRAINAGE WITH AN ODOR NOTED; CLEANSED WITH WOUND CLEANSER, PATTED DRY, AND APPLIED SPLIT GAUZE. PT HAS RUBBER BAND NOTED TO PEG. WHEN ASKED ABOUT THE RUBBER BAND PT STATED THAT HIS PEG TUBE TENDS TO "SLIDE IN AND OUT"; THEREFORE, HE PUT A RUBBER BAND AROUND IT. PT ARRIVED ON UNIT WITH A TEMP OF 103.4; PLACED TEMP GONZALEZ IN WITH TMAX OF 101.6. GONZALEZ DRAINING CLOUDY YELLOW URINE, 1200CC OUT. PT STATES HE SELF CATHS ONCE WEEKLY D/T RETENTION. OBTAINED RESPIRATORY PANEL AND COLLECTED SPUTUM SAMPLE. PT COUGHING UP THICK, YELLOW/BROWN SPUTUM. LUNG SOUNDS ARE COARSE RHONCHI T/O ALL LOBES AND DIMINISHED IN THE LOWER LOBES. PT NOTED TO BE IN NSR WITH HR 70'S UPON ADMIT. HOWEVER, PT NOTED TO HAVE A RHYTHM CHANGE THIS MORNING; POSSIBLE HEART BLOCK, BUT APPEARS TO BE HAVING PVC'S RIGHT AFTER T WAVE. CALLED AND OBTAINED ORDERS FOR A STAT MAGNESIUM LEVEL. PT'S BLOOD PRESSURES STABLE; HOWEVER, STARTED TRENDING DOWN TO SBP'S 80'S. CALLED AND OBTAINED ORDERS FOR A 500CC BOLUS OF NS; PT CONTINUES TO HAVE LOW DIASTOLIC BP'S WITH MAP'S 60'S. NS INFUSING AT 75MLS/HR WITH PIGGYBACK VANCO. PT HAS BEEN PLEASANT AND COOPERATIVE WITH CARES. WILL CONTINUE TO MONITOR UNTIL REPORT IS HANDED OFF TO ONCOMING RN.
--- NOTE | 2019-08-08 07:34 | NUR ---
ASSUMED CARE: PT RESTING QUIETLY IN BED AT THIS TIME. MAG LEVEL COMPLETED AND SLIGHTLY ELEVATED. NSR WITH ALTERNATE BEAT OF DIFFERING MORPHOLOGY NOTED. WILL CALL TO FIND OUT FORMULA FOR FEEDS. AWAITING DAY HOSPITALIST TO REVIEW MED ADMINISTRATION ORDERS DUE TO NIGHT HOSPITALIST ORDER TO HOLD MEDS BUT ORDERS FOR PT MEDS. PT APPEARS IN NO ACUTE DISTRESS AT THIS TIME.
[2019-08-08] MEDS ORDERED: TORSE20 PO (08:07)
[2019-08-08] MEDS ORDERED: FENTANYL PATCH TOP (08:09)
--- NOTE | 2019-08-08 09:38 | NUR ---
PT'S CALLED FOR AN UPDATE. DISCUSSED MEDS AND FORMULA USED FOR PEG WITH HER. DR AMADO CAME TO SEE PT AND IS AWARE THAT MED LIST HAS BEEN UPDATED. REORDERED FENTANYL PATCH. NEW PATCH PLACED, OLD ONE NOT PRESENT. DR INSTRUCTED OK TO USE PEG. DIETARY CONSULT PLACED FOR ASSISTANCE WITH RESTARTING FEEDINGS.
--- NOTE | 2019-08-08 10:26 | NUR ---
CALL TO DR AMADO TO MAKE SURE SHE WAS AWARE OF VARIANCE IN CARDIAC BEATS. ORDER FOR EKG AT THIS TIME.
--- NOTE | 2019-08-08 14:15 | NUR ---
REPORT CALLED TO STACIE MCCORMICK IN PCU. PT TRANSFERRED VIA WHEEL CHAIR BY STACIE. JACE AWARE THAT WE ARE WAITING FOR PT'S FEEDING SUPPLIES FROM DIETARY IN ORDER TO START PT'S BOLUS FEEDS. DENIES FURTHER NEEDS OR CONCERNS.
--- NOTE | 2019-08-08 15:57 | NUR ---
BROUGHT TO PCU VIA BED AT 1430. ASSUMED CARE. RESTING SUPINE IN LOW FOWLERS IN BED. A/A/OX4. IV VANCO AND NS AT 75ML/HR INFUSING WHEN ASSUME CARE. GONZALEZ CATH IN PLACE DRAINING CLEAR YELLOW URINE. WILL CONTINUE TO MONITOR.
[2019-08-09 05:25] LABS: BASOPHILS ABSOLUTE AUTO 0.02 K/mm3 (0.00-0.23); BASOPHILS PERCENT AUTO 0 % (0-2); EOSINOPHILS ABSOLUTE AUTO 0.06 K/mm3 (0.00-0.68); EOSINOPHILS PERCENT AUTO 1 % (0-6); Hematocrit 32.1 % (37.0-53.0); IMMATURE GRAN ABSOLUTE AUTO 0.04 K/mm3 (0.00-0.10); IMMATURE GRAN PERCENT AUTO 0 % (0-1); LYMPHOCYTES ABSOLUTE AUTO 1.58 K/mm3 (0.84-5.20); LYMPHOCYTES PERCENT AUTO 16 % (21-46); MONOCYTES PERCENT AUTO 15 % (4-13); Mean Corpuscular HGB 31.2 pg (26.0-34.0); Mean Corpuscular HGB Conc 31.2 g/dL (31.5-36.5); Mean Corpuscular Volume 100 fL (80-100); Mean Platelet Volume 11.4 fL (9.1-12.4); NEUTROPHILS ABSOLUTE AUTO 6.57 K/mm3 (1.96-9.15); NEUTROPHILS PERCENT AUTO 67 % (41-73); Platelet Count 107 K/mm3 (150-400); RDW Coefficient Variation 15.6 % (11.7-14.2); RDW Standard Deviation 58.1 fL (35.1-46.3); Red Blood Cell Count 3.21 M/mm3 (4.30-5.90); White Blood Cell Count 9.77 K/mm3 (4.00-11.30)
[2019-08-09 05:46] LABS: Alanine Aminotransfer (ALT/SGP 43 U/L (12-78); Albumin, Blood 2.7 g/dL (3.4-5.0); Albumin/Globulin Ratio 0.7 (0.8-1.8); Alk Phos 95 U/L (50-136); Anion Gap 4 mmol/L (6-16); Aspartate Aminotrans (AST/SGOT 31 U/L (12-37); Bilirubin, Total 0.5 mg/dL (0.1-1.0); Blood Urea Nitrogen 41 mg/dL (8-24); Bun/Creatinine Ratio 36.6 (12.0-20.0); CO2, Blood 29 mmol/L (21-32); Calcium, Blood 8.1 mg/dL (8.5-10.1); Chloride, Blood 110 mmol/L (98-108); Creatinine, Blood 1.12 mg/dL (0.60-1.20); Globulin, Blood 4.1 g/dL (2.2-4.0); Glomerular Filtration Rate >60 (60-); Glucose, Blood 65 mg/dL (70-99); Magnesium, Blood 2.7 mg/dL (1.6-2.4); Potassium, Blood 3.7 mmol/L (3.5-5.5); Sodium, Blood 143 mmol/L (136-145); Total Protein, Blood 6.8 g/dL (6.4-8.2)
--- NOTE | 2019-08-09 05:48 | NUR ---
SHIFT SUMMARY PT A&O X4. VSS. MONITOR SHOWS SR W/ FREQUENT PVC's. SPO2 > 92% ON 4L TITRATED TO 2L NC THIS SHIFT. PT REPORTS 2L NC HOME O2 USE. PT SOB W/ ACTIVITY, REQUIRING TITRATION TO 3-4L NC FOR OUT OF BED TRANSFERS TO BEDSIDE COMMODE. PT THEN ABLE TO QUICKLY RETURN TO 2L O2 USE WHEN BACK AT REST. PT NPO. BOLUS FEED & MEDS GIVEN VIA PEG TUBE. PT INQUIRING ABOUT GOING HOME TODAY. WILL CONTINUE TO MONITOR AND PROVIDE CARE UNTIL REPORT OFF TO DAY SHIFT RN.
--- NOTE | 2019-08-09 08:16 | NUR ---
ASSUMED CARE AT 0700, RESTING IN BED SUPINE. A/A/OX4. BREATHING TX IN PROGRESS, LS DIMINISHED THROUGHOUT. PEG TUBE IN PLACE WITH REDNESS AT INSERTION SITE UNCHANGED FROM YESTERDAY. WILL CONTINUE TO MONITOR. 2L O2 VIA NC, PLAN OF CARE REVIEWED. DENIES NEEDS.
--- NOTE | 2019-08-09 18:09 | NUR ---
PT PLEASANT COOP SINCE TRANSFER TO FLOOR. BOLUS FEEDING AND H2O ADMIN PER ORDERS. PT STATES FEELING BETTER SLOWLY. NO NEW CONCERNS THIS AFT. BED IN LOW POSITION, CALL LITE IN REACH, CALLS APPROP
--- NOTE | 2019-08-10 05:18 | NUR ---
SHIFT SUMMARY HAS BEEN RESTING WITH SOME INTERRUPTIONS - SUCH FOR C/O PAIN - PAIN MED GIVEN -SEE MAR FOR DETAILS. AND SCHEDULED TUBE FEEDING. CALL LIGHT IN REACH. NO COMPLAINTS VOICED AT THIS TIME.
[2019-08-10 06:02] LABS: BASOPHILS ABSOLUTE AUTO 0.02 K/mm3 (0.00-0.23); BASOPHILS PERCENT AUTO 0 % (0-2); EOSINOPHILS ABSOLUTE AUTO 0.14 K/mm3 (0.00-0.68); EOSINOPHILS PERCENT AUTO 2 % (0-6); Hematocrit 33.9 % (37.0-53.0); Hemoglobin 10.5 g/dL (13.5-17.5); IMMATURE GRAN ABSOLUTE AUTO 0.02 K/mm3 (0.00-0.10); IMMATURE GRAN PERCENT AUTO 0 % (0-1); LYMPHOCYTES ABSOLUTE AUTO 1.92 K/mm3 (0.84-5.20); LYMPHOCYTES PERCENT AUTO 23 % (21-46); MONOCYTES ABSOLUTE AUTO 0.75 K/mm3 (0.16-1.47); MONOCYTES PERCENT AUTO 9 % (4-13); Mean Corpuscular HGB 31.5 pg (26.0-34.0); Mean Corpuscular Volume 102 fL (80-100); Mean Platelet Volume 11.3 fL (9.1-12.4); NEUTROPHILS ABSOLUTE AUTO 5.57 K/mm3 (1.96-9.15); NEUTROPHILS PERCENT AUTO 66 % (41-73); Platelet Count 123 K/mm3 (150-400); RDW Coefficient Variation 15.8 % (11.7-14.2); RDW Standard Deviation 59.7 fL (35.1-46.3); Red Blood Cell Count 3.33 M/mm3 (4.30-5.90); White Blood Cell Count 8.42 K/mm3 (4.00-11.30)
--- NOTE | 2019-08-10 06:04 | NUR ---
PT VOICED FEELING ANXIOUS, REQUESTED MED. GEOLOGICAL SPECIALIST NOTIFIED, ONE TIME ORDER OF XANAX OBTAINED AND ADMINISTERED.
[2019-08-10 06:23] LABS: Anion Gap 6 mmol/L (6-16); Blood Urea Nitrogen 26 mg/dL (8-24); Bun/Creatinine Ratio 27.7 (12.0-20.0); CO2, Blood 26 mmol/L (21-32); Calcium, Blood 8.4 mg/dL (8.5-10.1); Chloride, Blood 113 mmol/L (98-108); Creatinine, Blood 0.94 mg/dL (0.60-1.20); Glomerular Filtration Rate >60 (60-); Glucose, Blood 198 mg/dL (70-99); Potassium, Blood 3.9 mmol/L (3.5-5.5); Sodium, Blood 145 mmol/L (136-145)
--- NOTE | 2019-08-10 08:30 | NUR ---
PT PLEASANT COOP A/O. STATES PAIN 8/10 ALLTIME IN BACK. MEDPER EMAR. TUBE FEED PER ORDERS. PT ASSISTS TO SOME DEGREE. H/R REG,NO MURMER NOTED. NO TELE. LUNGS CLEAR WITH LIGHT CRACKLES IN BASES. ON 2L O2 BASELINE AND NOW RESP EASY UNLABORED. BT X4 LAST BM TODAY. LOOSE PER TUBE FEEDING PER PT. VOIDS GONZALEZ CATH. CLEAR YELLOW FLUID DRAINIGN. PT SBA TO 1 ASST TO BSC. BED IN LOW [id number], CALL LITE IN REACH, CALLS APPROP
[2019-08-10] MEDS ORDERED: FENTANYL1 EA10 TOP (13:56)
[2019-08-10] MEDS ORDERED: ATOR20 PO (13:57)
[2019-08-10] MEDS ORDERED: ACET325UDC PO (14:00)
[2019-08-10] MEDS ORDERED: CIPRO500 MG/5 M PO (14:01)
--- NOTE | 2019-08-10 14:46 | NUR ---
DISCHARGE REVIEWED WITH PT AND SPOUSE. THEY VERBALIZED UNDERSTANDING OF MEDS AND INST. IV PULLED INTACT. NO TELE. PT WHEELED TO DOOR AT 1445
== END 2019-08-10 14:47 | disposition home or self-care (01) | DRG 871 ==
LOC: ER 00:29 → ICUW 02:09 → PCU 14:21 → MEDS 08-09 12:54
PROVIDERS: Emergency Medicine; Internal Medicine; ADMIT Internal Medicine
DX: A41.52 Sepsis due to Pseudomonas (principal); J69.0 Pneumonitis due to inhalation of food and vomit; J96.21 Acute and chronic respiratory failure with hypoxia; N39.0 Urinary tract infection, site not specified; I50.42 Chronic combined systolic (congestive) and diastolic (congestive) heart failure; G93.40 Encephalopathy, unspecified; J84.9 Interstitial pulmonary disease, unspecified; R64 Cachexia; J42 Unspecified chronic bronchitis; Z93.1 Gastrostomy status; I95.9 Hypotension, unspecified; Z20.828 Contact with and (suspected) exposure to other viral communicable diseases; I25.10 Atherosclerotic heart disease of native coronary artery without angina pectoris; N40.0 Benign prostatic hyperplasia without lower urinary tract symptoms; I73.9 Peripheral vascular disease, unspecified; G89.29 Other chronic pain; B96.1 Klebsiella pneumoniae [K. pneumoniae] as the cause of diseases classified elsewhere; Z79.82 Long term (current) use of aspirin; Z79.52 Long term (current) use of systemic steroids; Z87.891 Personal history of nicotine dependence; Z68.21 Body mass index [BMI] 21.0-21.9, adult
CPT/HCPCS: 0099U; 36415; 36600; 51702; 71045; 80048; 80053; 81001; 82803; 82947; 83605; 83735; 83880; 84100; 84484; 85025; 87070; 87077; 87086; 87186; 87205; 93005; 93010; 94640; 94760; 96365; 96367; 97162; 97165; 97530; 99285-25; A9270-GY; J0456; J0696; J1650; J1720; J1956; J2543; J3370; J7030; J7040; J7050; J7512; U0002

== ENCOUNTER 2019-09-06 01:07 | Inpatient (IN) | payer MEDICARE ==
[~2019-09-06] VITALS: Ht 188 cm; Wt 75.4 kg
[~2019-09-06 01:07] MED LIST changes: +AZIT500 PT; -Aspirin EC81 MG PT; +BISA10S PR; +Banatrol1 EACH PO; -CARV3.125 PT; +CEFP200 PT; +CIPRO500 MG/5 M PO; -CREON DR 12,001 EACH PT; -DOXA4 PT; -ESCI10 PT; +FAMO40 PT; +FENTANYL PATCH TOP; -GABA600 PT; +Loratadine10 MG PT; -MIRALAX17 GM PT; -MORP20L PT; +ONDA4 PT; -Pulmicort0.5 MG/2 M NEB; -TRAZ50 PT
[2019-09-06 01:58] LABS: Alanine Aminotransfer (ALT/SGP 64 U/L (12-78); Albumin, Blood 3.4 g/dL (3.4-5.0); Albumin/Globulin Ratio 0.8 (0.8-1.8); Alk Phos 93 U/L (50-136); Anion Gap 4 mmol/L (6-16); Aspartate Aminotrans (AST/SGOT 43 U/L (12-37); Bilirubin, Total 0.6 mg/dL (0.1-1.0); Blood Urea Nitrogen 53 mg/dL (8-24); CO2, Blood 35 mmol/L (21-32); Calcium, Blood 9.4 mg/dL (8.5-10.1); Chloride, Blood 98 mmol/L (98-108); Creatinine, Blood 1.02 mg/dL (0.60-1.20); Globulin, Blood 4.2 g/dL (2.2-4.0); Glomerular Filtration Rate >60 (60-); Glucose, Blood 101 mg/dL (70-99); Potassium, Blood 4.1 mmol/L (3.5-5.5); Sodium, Blood 137 mmol/L (136-145); Total Protein, Blood 7.6 g/dL (6.4-8.2); Troponin I <0.015 ng/mL (0.000-0.040)
[2019-09-06 02:02] LABS: BASOPHILS ABSOLUTE AUTO 0.03 K/mm3 (0.00-0.23); BASOPHILS PERCENT AUTO 0 % (0-2); EOSINOPHILS ABSOLUTE AUTO 0.12 K/mm3 (0.00-0.68); EOSINOPHILS PERCENT AUTO 1 % (0-6); Hemoglobin 11.4 g/dL (13.5-17.5); IMMATURE GRAN ABSOLUTE AUTO 0.15 K/mm3 (0.00-0.10); IMMATURE GRAN PERCENT AUTO 1 % (0-1); LYMPHOCYTES ABSOLUTE AUTO 2.32 K/mm3 (0.84-5.20); LYMPHOCYTES PERCENT AUTO 12 % (21-46); MONOCYTES PERCENT AUTO 8 % (4-13); Mean Corpuscular HGB 32.2 pg (26.0-34.0); Mean Corpuscular HGB Conc 32.6 g/dL (31.5-36.5); Mean Corpuscular Volume 99 fL (80-100); Mean Platelet Volume 11.1 fL (9.1-12.4); NEUTROPHILS ABSOLUTE AUTO 15.13 K/mm3 (1.96-9.15); NEUTROPHILS PERCENT AUTO 79 % (41-73); Platelet Count 125 K/mm3 (150-400); RDW Coefficient Variation 15.8 % (11.7-14.2); Red Blood Cell Count 3.54 M/mm3 (4.30-5.90); White Blood Cell Count 19.25 K/mm3 (4.00-11.30)
[2019-09-06 03:08] LABS: Source, Urine Voided
[2019-09-06 03:11] LABS: Bilirubin, Urine Neg (Neg); Blood, Urine Neg (Neg); Glucose Qualitative, Urine Neg (Neg); Ketones, Urine Neg (Neg); Leukocyte Esterase, Urine Neg (Neg); Nitrite, Urine Neg (Neg); Protein, Urine Neg (Neg); Urobilinogen, Urine NORM (Normal)
[2019-09-06 03:14] LABS: Appearance, Urine Clear (Clear); Color, Urine Yellow (P-Yellow)
[2019-09-06 05:27] LABS: BASOPHILS ABSOLUTE AUTO 0.03 K/mm3 (0.00-0.23); BASOPHILS PERCENT AUTO 0 % (0-2); EOSINOPHILS ABSOLUTE AUTO 0.11 K/mm3 (0.00-0.68); EOSINOPHILS PERCENT AUTO 1 % (0-6); Hematocrit 30.5 % (37.0-53.0); Hemoglobin 9.9 g/dL (13.5-17.5); IMMATURE GRAN ABSOLUTE AUTO 0.08 K/mm3 (0.00-0.10); IMMATURE GRAN PERCENT AUTO 0 % (0-1); LYMPHOCYTES ABSOLUTE AUTO 2.39 K/mm3 (0.84-5.20); LYMPHOCYTES PERCENT AUTO 13 % (21-46); MONOCYTES PERCENT AUTO 9 % (4-13); Mean Corpuscular HGB 31.9 pg (26.0-34.0); Mean Corpuscular HGB Conc 32.5 g/dL (31.5-36.5); Mean Corpuscular Volume 98 fL (80-100); Mean Platelet Volume 10.7 fL (9.1-12.4); NEUTROPHILS PERCENT AUTO 77 % (41-73); Platelet Count 107 K/mm3 (150-400); RDW Coefficient Variation 15.9 % (11.7-14.2); RDW Standard Deviation 57.2 fL (35.1-46.3); White Blood Cell Count 18.31 K/mm3 (4.00-11.30)
[2019-09-06 05:54] LABS: Alanine Aminotransfer (ALT/SGP 59 U/L (12-78); Albumin, Blood 2.8 g/dL (3.4-5.0); Albumin/Globulin Ratio 0.8 (0.8-1.8); Alk Phos 81 U/L (50-136); Anion Gap 4 mmol/L (6-16); Aspartate Aminotrans (AST/SGOT 45 U/L (12-37); Bilirubin, Total 0.6 mg/dL (0.1-1.0); Blood Urea Nitrogen 49 mg/dL (8-24); Bun/Creatinine Ratio 53.1 (12.0-20.0); CO2, Blood 32 mmol/L (21-32); Calcium, Blood 8.4 mg/dL (8.5-10.1); Chloride, Blood 103 mmol/L (98-108); Creatinine, Blood 0.92 mg/dL (0.60-1.20); Globulin, Blood 3.4 g/dL (2.2-4.0); Glomerular Filtration Rate >60 (60-); Glucose, Blood 95 mg/dL (70-99); Potassium, Blood 3.8 mmol/L (3.5-5.5); Sodium, Blood 139 mmol/L (136-145); Total Protein, Blood 6.2 g/dL (6.4-8.2)
--- NOTE | 2019-09-06 06:13 | NUR ---
SHIFT SUMMARY: PT T/F FROM ER TO MED FLOOR AT 0455. T/F VIA SLIDE SHEET FROM STRETHCER TO BED. APPEARS TIRED, EYES BLOODSHOT. MUSCLE SPASMING NOTED- PT REPORTS THESE ARE WORSE THAN IS NORMAL FOR HIM. IV FLUIDS AND ABT INFUSING ORDERED. GT TO L UPPER ABD. HEART RHYTHM NSR W/PVC'S PER TELE SHELLFISH SORTER. 02 92% ON 3L VIA NC. LS DIM BUT PT'S RESPS SHALLOW. HOB ELEVATED 30 DEGREES FOR COMFORT. BED CONTROL EXPLAINED AND PLACED WITHIN REACH. ENCOURAGED PT TO CALL FOR ASSISTANCE TO USE BSC DUE TO RECENT FALL. BED ALARM ON.
[2019-09-06 17:11] LABS: Adenovirus Not Detected (NOT DETECT); Bordetella pertussis Not Detected (NOT DETECT); Chlamydophila pneumoniae Not Detected (NOT DETECT); Coronavirus 229E Not Detected (NOT DETECT); Coronavirus HKU1 Not Detected (NOT DETECT); Coronavirus NL63 Not Detected (NOT DETECT); Coronavirus OC43 Not Detected (NOT DETECT); Human Metapneumovirus Not Detected (NOT DETECT); Human Rhinovirus/Enterovirus Not Detected (NOT DETECT); Influenza A/2009-H1 Not Detected (NOT DETECT); Influenza A/H1 Not Detected (NOT DETECT); Influenza A/H3 Not Detected (NOT DETECT); Influenza B Not Detected (NOT DETECT); Mycoplasma pneumoniae Not Detected (NOT DETECT); Parainfluenza Virus 1 Not Detected (NOT DETECT); Parainfluenza Virus 2 Not Detected (NOT DETECT); Parainfluenza Virus 3 Not Detected (NOT DETECT); Parainfluenza Virus 4 Not Detected (NOT DETECT); Respiratory Syncytial Virus Not Detected (NOT DETECT)
--- NOTE | 2019-09-06 17:40 | NUR ---
SHIFT SUMMARY- PT IS A/O, PLESANT AND COOPERATIVE. HE IS RECIEVING TUBE FEEDINGS AND IS TOLERATING WELL. HE WORKED WITH PT TODAY AND TOLERATED WELL. HIS TEMP WAS NORMAL THIS MORNING BUT ELEVATED THIS AFTERNOON. HE IS RECIEVING IV ABX. HE SLEPT FOR MOST OF THIS SHIFT.
[2019-09-07 05:22] LABS: BASOPHILS ABSOLUTE AUTO 0.03 K/mm3 (0.00-0.23); BASOPHILS PERCENT AUTO 0 % (0-2); EOSINOPHILS ABSOLUTE AUTO 0.05 K/mm3 (0.00-0.68); EOSINOPHILS PERCENT AUTO 0 % (0-6); Hematocrit 32.9 % (37.0-53.0); Hemoglobin 10.5 g/dL (13.5-17.5); IMMATURE GRAN ABSOLUTE AUTO 0.17 K/mm3 (0.00-0.10); IMMATURE GRAN PERCENT AUTO 1 % (0-1); LYMPHOCYTES PERCENT AUTO 9 % (21-46); MONOCYTES ABSOLUTE AUTO 2.06 K/mm3 (0.16-1.47); MONOCYTES PERCENT AUTO 10 % (4-13); Mean Corpuscular HGB 31.9 pg (26.0-34.0); Mean Corpuscular HGB Conc 31.9 g/dL (31.5-36.5); Mean Corpuscular Volume 100 fL (80-100); Mean Platelet Volume 11.1 fL (9.1-12.4); NEUTROPHILS ABSOLUTE AUTO 16.06 K/mm3 (1.96-9.15); NEUTROPHILS PERCENT AUTO 80 % (41-73); Platelet Count 106 K/mm3 (150-400); RDW Coefficient Variation 16.3 % (11.7-14.2); RDW Standard Deviation 60.1 fL (35.1-46.3); Red Blood Cell Count 3.29 M/mm3 (4.30-5.90); White Blood Cell Count 20.17 K/mm3 (4.00-11.30)
[2019-09-07 05:40] LABS: Bun/Creatinine Ratio 33.6 (12.0-20.0); Calcium, Blood 8.3 mg/dL (8.5-10.1); Creatinine, Blood 1.4 mg/dL (0.60-1.20); Magnesium, Blood 2.6 mg/dL (1.6-2.4); Phosphorus, Blood 3.9 mg/dL (2.5-4.9); Potassium, Blood 3.8 mmol/L (3.5-5.5)
--- NOTE | 2019-09-07 06:26 | NUR ---
SHIFT SUMMARY: AAOX3. ABLE TO COMMUNICATE NEEDS. WITHDRAWN W/FLAT AFFECT. EXPRESSES FRUSTRATION ABOUT BEING BACK IN THE HOSPITAL SO SOON W/PNA. PT 02 SATS NOTED TO BE 85-88% ON 3L VIA NC. ENCOURAGED TCDB. EFFORT IS WEAK. PRODUCING GREEN THICK SPUTUM W/COUGHS. RESPS APPEAR NON-LABORED. LS DIM W/FINE CRACKLES AUSCULTATED IN B BASES. 02 TITRATED TO 7L FOR SATS >90%. RT CONTACTED. PT SWITCHED TO OXIMIZER. SATS CURRENTLY 91-95% ON 7L VIA OXIMIZER. HOB ELEVATED >30 DEGREES AT ALL TIMES. RICARDO TF WELL. ORAL TEMP OF 103.1 AT THE HIGHEST TONIGHT. DECREASED W/TYLENOL TO 98.4. REMAINS AFEB AT THIS TIME. PT STATES HE FEELS OK. NOTABLE MUSCLE TREMORING W/ MOVEMENT. STATES THIS IS MUCH WORSE COMPARED TO HIS BASELINE. T/F W/1 PERSON MOD ASSIST TO AND FROM BSC, WEAK AND SHAKY. IV ABT INFUSED ORDERED. PT APPEARS TO HAVE SLEPT WELL THROUGH MOST OF THE NIGHT. BED ALARM ON. HAS CALLED APPROPRIATELY FOR ASSIST TONIGHT. WILL CONT TO MONITOR.
--- NOTE | 2019-09-07 17:35 | NUR ---
PT IS A/O, PLESANT AND COOPERATIVE HE IS RECIEVING TUBE FEEDINGS AND IS TOLERATING WELL. HE IS SB ASSIST TO THE BSC. HE IS WORKING WITH RT AND RECIEVING BREATHING TREATMENTS. HE HAD A FEVER THIS MORNING BUT HAS REMAINED AFEBRILE THE REST OF THIS SHIFT. HE REPORTS FEELING MUCH BETTER AND APPEARS MORE COMFROTABLE THAN HE DID YESTERDAY. HE APPEARS STRONGER ON HIS FEET AND DENIES CHILLS.
[2019-09-08 05:11] LABS: BASOPHILS ABSOLUTE AUTO 0.02 K/mm3 (0.00-0.23); BASOPHILS PERCENT AUTO 0 % (0-2); EOSINOPHILS PERCENT AUTO 0 % (0-6); Hematocrit 29.2 % (37.0-53.0); Hemoglobin 9.3 g/dL (13.5-17.5); IMMATURE GRAN ABSOLUTE AUTO 0.08 K/mm3 (0.00-0.10); IMMATURE GRAN PERCENT AUTO 1 % (0-1); LYMPHOCYTES ABSOLUTE AUTO 0.71 K/mm3 (0.84-5.20); LYMPHOCYTES PERCENT AUTO 5 % (21-46); MONOCYTES ABSOLUTE AUTO 0.93 K/mm3 (0.16-1.47); MONOCYTES PERCENT AUTO 7 % (4-13); Mean Corpuscular HGB 31.4 pg (26.0-34.0); Mean Corpuscular HGB Conc 31.8 g/dL (31.5-36.5); Mean Corpuscular Volume 99 fL (80-100); Mean Platelet Volume 11.1 fL (9.1-12.4); NEUTROPHILS ABSOLUTE AUTO 11.73 K/mm3 (1.96-9.15); NEUTROPHILS PERCENT AUTO 87 % (41-73); Platelet Count 93 K/mm3 (150-400); RDW Coefficient Variation 15.9 % (11.7-14.2); RDW Standard Deviation 57.6 fL (35.1-46.3); Red Blood Cell Count 2.96 M/mm3 (4.30-5.90); White Blood Cell Count 13.47 K/mm3 (4.00-11.30)
[2019-09-08 05:24] LABS: Anion Gap 6 mmol/L (6-16); Blood Urea Nitrogen 41 mg/dL (8-24); Bun/Creatinine Ratio 38.7 (12.0-20.0); CO2, Blood 27 mmol/L (21-32); Calcium, Blood 8.3 mg/dL (8.5-10.1); Chloride, Blood 110 mmol/L (98-108); Creatinine, Blood 1.06 mg/dL (0.60-1.20); Glomerular Filtration Rate >60 (60-); Glucose, Blood 194 mg/dL (70-99); Magnesium, Blood 2.8 mg/dL (1.6-2.4); Phosphorus, Blood 2.8 mg/dL (2.5-4.9); Potassium, Blood 3.8 mmol/L (3.5-5.5); Sodium, Blood 143 mmol/L (136-145)
--- NOTE | 2019-09-08 06:37 | NUR ---
SHIFT SUMMARY: VSS. AFEB. MAINTAINING 02 SATS 93% ON 4L VIA NC. RHONCHI AUCULTATED IN UPPER LOBES, CRACKLES IN BASES. COUGH PRODUCING TALBOT SPUTUM. PT IS MORE ALERT AND INTERACTIVE TONIGHT. MOOD IS GOOD. STATES HE FEELS "GREAT" AND IS EAGER TO GO HOME. MUSCLE TREMORING RESOLVED. IV ABT INFUSED ORDERED. NO ACUTE CHANGES.
--- NOTE | 2019-09-08 11:33 | NUR ---
0830 RESIDUAL FROM PEG TUBE 500ML, SPOKE WITH SHIRA VANG OUTBOUND SALES CONSULTANT, SHE REPORTED TO [place] 240ML AND DISCARD THE REMAINDER. MEDICATIONS GIVEN AT THIS TIME WELL.
--- NOTE | 2019-09-08 17:11 | NUR ---
PT REFUSED TF AT 1100 AND 1300 DUE TO RESIDUAL THIS AM. 0 RESIDUAL AT 1500. 1 CAN TF AND 300ML H20 GIVEN PER PT AND REQUEST WITH MEDICATIONS.
[2019-09-08] MEDS ORDERED: VISBIOME PROBIOTIC PT (17:42)
[2019-09-08] MEDS ORDERED: AMOCLA875 PT (17:42)
[2019-09-08] MEDS ORDERED: Prednisone10 MG PT (17:46)
--- NOTE | 2019-09-08 18:42 | NUR ---
182 PT DISCHARGED HOME VIA PERSONAL VEHICLE ACCOMPANIED AND DRIVEN BY . PT ESCORTED TO ENTRANCE VIA W/C WITH 2L O2 BY RN. IV'S REMOVED. D/C INSTRUCTIONS REVIEWED WITH PT AND COPY PROVIDED. NEW RX CALLED IN TO [facility] IN [place] PER PT REQUEST. NO NEW CHANGES OR CONCERNS.
== END 2019-09-08 18:23 | disposition home or self-care (01) | DRG 871 ==
LOC: ER 01:07 → MEDS 04:12
PROVIDERS: Emergency Medicine; Hospitalist; ADMIT Internal Medicine
DX: A41.50 Gram-negative sepsis, unspecified (principal); J96.21 Acute and chronic respiratory failure with hypoxia; J69.0 Pneumonitis due to inhalation of food and vomit; I50.43 Acute on chronic combined systolic (congestive) and diastolic (congestive) heart failure; J15.9 Unspecified bacterial pneumonia; J84.9 Interstitial pulmonary disease, unspecified; J44.1 Chronic obstructive pulmonary disease with (acute) exacerbation; R64 Cachexia; J44.0 Chronic obstructive pulmonary disease with (acute) lower respiratory infection; Z20.828 Contact with and (suspected) exposure to other viral communicable diseases; R65.20 Severe sepsis without septic shock; I25.10 Atherosclerotic heart disease of native coronary artery without angina pectoris; R13.12 Dysphagia, oropharyngeal phase; N40.0 Benign prostatic hyperplasia without lower urinary tract symptoms; I65.23 Occlusion and stenosis of bilateral carotid arteries; I73.9 Peripheral vascular disease, unspecified; K21.9 Gastro-esophageal reflux disease without esophagitis; W19.XXXA Unspecified fall, initial encounter; I25.2 Old myocardial infarction; Z79.82 Long term (current) use of aspirin; Z87.891 Personal history of nicotine dependence
CPT/HCPCS: 0099U; 36415; 51701; 71045; 80048; 80053; 81003; 82140; 83605; 83735; 83880; 84100; 84484; 85025; 87040; 87070; 87077; 87186; 87205; 93005; 93010; 94640; 94667; 94760; 96365-59; 97116; 97162; 97165; 97530; 99285-25; A9270; A9270-GY; J0696; J1650; J1956; J2543; J7030; J7050; J7120; J7512; U0002

== ENCOUNTER 2019-09-19 11:44 | Inpatient (IN) | payer MEDICARE ==
[~2019-09-19] VITALS: Ht 188 cm; Wt 73.7 kg
[~2019-09-19 11:44] MED LIST changes: +AMOCLA875 PT; +Prednisone10 MG PT; +VISBIOME PROBIOTIC PT
[2019-09-19 12:32] LABS: BASOPHILS ABSOLUTE AUTO 0.02 K/mm3 (0.00-0.23); BASOPHILS PERCENT AUTO 0 % (0-2); EOSINOPHILS ABSOLUTE AUTO 0.16 K/mm3 (0.00-0.68); EOSINOPHILS PERCENT AUTO 2 % (0-6); IMMATURE GRAN ABSOLUTE AUTO 0.06 K/mm3 (0.00-0.10); IMMATURE GRAN PERCENT AUTO 1 % (0-1); LYMPHOCYTES ABSOLUTE AUTO 1.47 K/mm3 (0.84-5.20); LYMPHOCYTES PERCENT AUTO 14 % (21-46); MONOCYTES PERCENT AUTO 14 % (4-13); Mean Corpuscular HGB 32.1 pg (26.0-34.0); Mean Corpuscular HGB Conc 32.4 g/dL (31.5-36.5); Mean Corpuscular Volume 99 fL (80-100); Mean Platelet Volume 11.1 fL (9.1-12.4); NEUTROPHILS PERCENT AUTO 70 % (41-73); Platelet Count 286 K/mm3 (150-400); RDW Standard Deviation 56.5 fL (35.1-46.3); Red Blood Cell Count 3.74 M/mm3 (4.30-5.90); White Blood Cell Count 10.81 K/mm3 (4.00-11.30)
[2019-09-19 12:54] LABS: Alanine Aminotransfer (ALT/SGP 62 U/L (12-78); Albumin, Blood 3.4 g/dL (3.4-5.0); Albumin/Globulin Ratio 0.8 (0.8-1.8); Alk Phos 102 U/L (50-136); Anion Gap 5 mmol/L (6-16); Aspartate Aminotrans (AST/SGOT 73 U/L (12-37); Bilirubin, Total 0.7 mg/dL (0.1-1.0); Blood Urea Nitrogen 56 mg/dL (8-24); Bun/Creatinine Ratio 58.2 (12.0-20.0); CO2, Blood 32 mmol/L (21-32); Calcium, Blood 9.5 mg/dL (8.5-10.1); Chloride, Blood 99 mmol/L (98-108); Creatinine, Blood 0.96 mg/dL (0.60-1.20); Globulin, Blood 4.3 g/dL (2.2-4.0); Glomerular Filtration Rate >60 (60-); Glucose, Blood 72 mg/dL (70-99); Potassium, Blood 5.8 mmol/L (3.5-5.5); Sodium, Blood 136 mmol/L (136-145); Total Protein, Blood 7.7 g/dL (6.4-8.2)
[2019-09-19 13:00] LABS: Source, Urine Clean Catch
[2019-09-19 13:10] LABS: Bilirubin, Urine Neg (Neg); Blood, Urine 5+ (Neg); Glucose Qualitative, Urine Neg (Neg); Ketones, Urine Neg (Neg); Leukocyte Esterase, Urine 3+ (Neg); Nitrite, Urine Neg (Neg); Protein, Urine 3+ (Neg); Urobilinogen, Urine NORM (Normal)
[2019-09-19 13:18] LABS: Appearance, Urine Turbid (Clear); Color, Urine Yellow (P-Yellow); White Blood Cells, Urine TNTC /hpf (0-5)
[2019-09-19 13:21] LABS: Squamous Epithelial Cells Rare /hpf (Few)
[2019-09-19 13:23] LABS: Bacteria Few /hpf
[2019-09-19] MEDS ORDERED: PRED20 PT (14:31)
[2019-09-19] MEDS ORDERED: CREON DR 12,001 EACH PT (14:41)
[2019-09-19] MEDS ORDERED: Morphine S10 MG/5 ML PT (14:44)
[2019-09-19] MEDS ORDERED: FENTANYL1 EA10 TD (14:45)
[2019-09-19] MEDS ORDERED: CARV3.125 PT (14:46)
[2019-09-19] MEDS ORDERED: TORSE20 PT (14:48)
[2019-09-19] MEDS ORDERED: ATOR20 PT (14:49)
[2019-09-19] MEDS ORDERED: Aspirin EC81 MG PT (14:49)
[2019-09-19] MEDS ORDERED: ESCI10 PT (14:50)
[2019-09-19] MEDS ORDERED: TRAZ100 PT (14:50)
[2019-09-19] MEDS ORDERED: GABA600 PT (14:52)
[2019-09-19] MEDS ORDERED: Prednisone2.5 MG PT (14:52)
[2019-09-19] MEDS ORDERED: DOXA4 PT (14:52)
[2019-09-19] MEDS ORDERED: BUDE.25 NEB (15:16)
[2019-09-19] MEDS ORDERED: ACET325 PT (15:17)
[2019-09-19] MEDS ORDERED: MIRALAX17 GM PT (15:17)
[2019-09-19] MEDS ORDERED: DOC250 PT (15:18)
[2019-09-19] MEDS ORDERED: ALBU2.5V5 NEB (15:27)
--- NOTE | 2019-09-19 18:37 | NUR ---
Shift Summary Received report from STACIE Hillman-ED. Patient arrived to unit via stretcher at 1630, slide over. LR @ 75 mLs/hr. C/O 9/10 chronic lower back pain. Fentanly patch to L upper arm. No skin issues noted except bruising on upper and lower extremities (see assessment). A/Ox3, arrived with patient. Bed in lowest position, bed alarm on for safety, bedside commode near by, call light in reach. Will continue to monitor.
--- NOTE | 2019-09-20 04:50 | NUR ---
SHIFT SUMMARY- PT. A&O, WITH TREMORS AT BASELINE. PLEASANT AND COOPERATIVE WITH CARE. HAD NO ACUTE EVENTS OVERNIGHT. SLEPT ON/OFF DURING THE NIGHT, HAD SEVERAL LOOSE STOOLS THIS SHIFT. NO COMPLAINTS OF PAIN OR DISCOMFORT. VSS. DENIED ANY OTHER NEEDS. CALL LIGHT WITHIN REACH AND SIDE RAILS UPX2. WILL CONT TO MONITOR.
[2019-09-20 08:48] LABS: Mean Corpuscular HGB 32.6 pg (26.0-34.0); Mean Corpuscular HGB Conc 33.3 g/dL (31.5-36.5); Mean Corpuscular Volume 98 fL (80-100); Mean Platelet Volume 10.5 fL (9.1-12.4); Platelet Count 290 K/mm3 (150-400); RDW Coefficient Variation 15.7 % (11.7-14.2); RDW Standard Deviation 56.3 fL (35.1-46.3); Red Blood Cell Count 3.68 M/mm3 (4.30-5.90); White Blood Cell Count 14.55 K/mm3 (4.00-11.30)
[2019-09-20 09:08] LABS: Anion Gap 6 mmol/L (6-16); Blood Urea Nitrogen 53 mg/dL (8-24); Bun/Creatinine Ratio 55.8 (12.0-20.0); CO2, Blood 29 mmol/L (21-32); Calcium, Blood 9.2 mg/dL (8.5-10.1); Chloride, Blood 103 mmol/L (98-108); Creatinine, Blood 0.95 mg/dL (0.60-1.20); Glomerular Filtration Rate >60 (60-); Glucose, Blood 121 mg/dL (70-99); Sodium, Blood 138 mmol/L (136-145)
--- NOTE | 2019-09-20 19:24 | NUR ---
Shift Summary Patient was febrile with temp of 100.5, medicated per EMAR with good result. Tube feeding was not able to start until roughly 1730 d/t feedings not being available, 2 cans given (480 cc). Dressing on peg-tube site changed, C/D/I. Medicated for 9/10 pain per EMAR with no relief according to patient. Blankets kept at a minimal and room kept cool to manage temp. Patient worked with physical therapy today, required encouragement to do so. Continues to have diarrhea, not as frequently as yesterday. Patient states he self-caths PRN (about once weekly). Bed alarm on, bed in lowest position, call light and personal items close by.
--- NOTE | 2019-09-21 03:05 | NUR ---
BOLUS TUBE FEEDING DONE PER ORDER. PT. GIVEN 480ML (2 CANS) VIA PEG TUBE WITH 12OML FLUSH. PT. TOLERATED WELL. PT. RESTING COMFORTABLY IN BED, NO APPARENT DISTRESS NOTED. CALL LIGHT WITHIN REACH AND SIDE RAILS UPX2. WILL CONT TO MONITOR.
[2019-09-21 04:36] LABS: BASOPHILS ABSOLUTE AUTO 0.02 K/mm3 (0.00-0.23); BASOPHILS PERCENT AUTO 0 % (0-2); EOSINOPHILS ABSOLUTE AUTO 0.17 K/mm3 (0.00-0.68); EOSINOPHILS PERCENT AUTO 2 % (0-6); Hematocrit 30.8 % (37.0-53.0); Hemoglobin 9.9 g/dL (13.5-17.5); IMMATURE GRAN ABSOLUTE AUTO 0.05 K/mm3 (0.00-0.10); IMMATURE GRAN PERCENT AUTO 0 % (0-1); LYMPHOCYTES ABSOLUTE AUTO 1.87 K/mm3 (0.84-5.20); LYMPHOCYTES PERCENT AUTO 17 % (21-46); MONOCYTES PERCENT AUTO 14 % (4-13); Mean Corpuscular HGB 31.8 pg (26.0-34.0); Mean Corpuscular HGB Conc 32.1 g/dL (31.5-36.5); Mean Corpuscular Volume 99 fL (80-100); Mean Platelet Volume 10.6 fL (9.1-12.4); NEUTROPHILS ABSOLUTE AUTO 7.63 K/mm3 (1.96-9.15); NEUTROPHILS PERCENT AUTO 67 % (41-73); Platelet Count 256 K/mm3 (150-400); RDW Coefficient Variation 15.7 % (11.7-14.2); RDW Standard Deviation 58.1 fL (35.1-46.3); Red Blood Cell Count 3.11 M/mm3 (4.30-5.90); White Blood Cell Count 11.34 K/mm3 (4.00-11.30)
[2019-09-21 04:51] LABS: Anion Gap 6 mmol/L (6-16); Blood Urea Nitrogen 55 mg/dL (8-24); Bun/Creatinine Ratio 60.8 (12.0-20.0); CO2, Blood 29 mmol/L (21-32); Calcium, Blood 8.1 mg/dL (8.5-10.1); Chloride, Blood 104 mmol/L (98-108); Creatinine, Blood 0.91 mg/dL (0.60-1.20); Glomerular Filtration Rate >60 (60-); Glucose, Blood 163 mg/dL (70-99); Potassium, Blood 3.8 mmol/L (3.5-5.5); Sodium, Blood 139 mmol/L (136-145)
--- NOTE | 2019-09-21 05:24 | NUR ---
SHIFT SUMMARY- NO ACUTE EVENTS OVERNIGHT. PT. ASLEEP COMFORTABLY IN BED DURING THE NIGHT. NO APPARENT DISTRESS NOTED. BOLUS TUBE FEEDING DONE PER ORDER (SEE NURSE NOTE). PT. MEDICATED FOR PAIN 2X PER REQUEST WITH GOOD EFFECT. PT. STATES IMPROVMENT IN DIARRHEA. DENIES ANY NEEDS AT THIS TIME. CALL LIGHT WITHIN REACH AND SIDE RAILS UPX2. WILL CONT TO MONITOR.
--- NOTE | 2019-09-21 19:35 | NUR ---
Shift Summary Blood sugars have been stable, Q6 BG checks have been d/c and updated in EMAR. Peg-tube dressing remains C/D/I. Medicated for lower back pain x 2 with minimal relief. Tolerating bolus feeds well. VSS. Afebrile this shift. Calls appropriately for needs. Appears to be stronger with transfers to the bedside commode. No other acute concerns.
--- NOTE | 2019-09-22 04:17 | NUR ---
BOLUS TUBE FEEDING DONE PER ORDER. INSTRUCTIONS WERE TO GIVE 2 CANS(480ML). ADMINISTERED 1.5 CANS, PT. STATED WAS FULL. TOLERATED WELL. PT. RESTING COMFORTABLY IN BED, NO APPARENT DISTRESS NOTED. CALL LIGHT WITHIN REACH AND SIDE RAILS UPX2. WILL CONT TO MONITOR.
--- NOTE | 2019-09-22 04:59 | NUR ---
SHIFT SUMMARY- NO ACUTE EVENTS OVERNIGHT. PT. RESTING COMFORTABLY IN BED T/O THE NIGHT. NO APPARENT DISTRESS NOTED. NO COMPAINTS THIS SHIFT. BOLUS TUBE FEEDING DONE PER ORDER, PT. TOLERATED WELL. NOTED PT. STRENGTH IMPROVING. AMBULATED IN THE ROOM W/PCI SECURITY CONSULTANT ASSIST W/O DIFFICULTY. PT. ANTICIPATING D/C TO HOME TODAY. CALL LIGHT WITHIN REACH AND SIDE RAILS UPX2. WILL CONT TO MONITOR.
[2019-09-22 05:08] LABS: BASOPHILS ABSOLUTE AUTO 0.03 K/mm3 (0.00-0.23); BASOPHILS PERCENT AUTO 0 % (0-2); EOSINOPHILS ABSOLUTE AUTO 0.23 K/mm3 (0.00-0.68); EOSINOPHILS PERCENT AUTO 3 % (0-6); Hematocrit 32.2 % (37.0-53.0); Hemoglobin 10.4 g/dL (13.5-17.5); IMMATURE GRAN ABSOLUTE AUTO 0.05 K/mm3 (0.00-0.10); IMMATURE GRAN PERCENT AUTO 1 % (0-1); LYMPHOCYTES PERCENT AUTO 23 % (21-46); MONOCYTES ABSOLUTE AUTO 0.87 K/mm3 (0.16-1.47); MONOCYTES PERCENT AUTO 10 % (4-13); Mean Corpuscular HGB 32.3 pg (26.0-34.0); Mean Corpuscular HGB Conc 32.3 g/dL (31.5-36.5); Mean Corpuscular Volume 100 fL (80-100); Mean Platelet Volume 10.5 fL (9.1-12.4); NEUTROPHILS ABSOLUTE AUTO 5.47 K/mm3 (1.96-9.15); NEUTROPHILS PERCENT AUTO 63 % (41-73); Platelet Count 247 K/mm3 (150-400); RDW Coefficient Variation 15.8 % (11.7-14.2); RDW Standard Deviation 58.4 fL (35.1-46.3); Red Blood Cell Count 3.22 M/mm3 (4.30-5.90); White Blood Cell Count 8.65 K/mm3 (4.00-11.30)
[2019-09-22 05:24] LABS: Anion Gap 7 mmol/L (6-16); Blood Urea Nitrogen 42 mg/dL (8-24); Bun/Creatinine Ratio 50.4 (12.0-20.0); CO2, Blood 27 mmol/L (21-32); Calcium, Blood 8.3 mg/dL (8.5-10.1); Chloride, Blood 104 mmol/L (98-108); Creatinine, Blood 0.83 mg/dL (0.60-1.20); Glomerular Filtration Rate >60 (60-); Glucose, Blood 180 mg/dL (70-99); Potassium, Blood 3.6 mmol/L (3.5-5.5); Sodium, Blood 138 mmol/L (136-145)
--- NOTE | 2019-09-22 23:05 | NUR ---
2305 STATED DID NOT FEEL HE WOULD NEED THE 0300 FEEDING. EXPLAINED TO PATIENT THAT IF HE FELT THAT HE WAS HUNGRY OR WANTED THAT FEEDING TO JUST CALL AND LET ME KNOW.
--- NOTE | 2019-09-23 07:24 | NUR ---
SHIFT SUMMARY A/O, ABLE TO MAKE NEEDS KNOWN. COOPERATIVE WITH CARE. CALLS AND ANSWERS QUESTIONS APPROPRIATELY. NO C/O PAIN/DISCOMFORT. TOLERATED TUBE FEED AND MEDS PT WITHOUT COMPLICATIONS. APPEARED TO REST OFF AND ON OVERNIGHT. NO ACUTE CHANGES NOTED OVERNIGHT. VSS/AFEBRILE. BED REMAINED IN LOWEST POSITION. CALL LIGHT AND BELONGINGS WITHIN REACH. CONTINUED TO MONITOR OVERNIGHT. REPORT GIVEN TO ONCOMING RN.
--- NOTE | 2019-09-23 17:59 | NUR ---
Initial spiritual care note: Mr. Solano appears weak and was dismissive of pastoral care. I will remain available.
--- NOTE | 2019-09-24 04:47 | NUR ---
SHIFT SUMMARY ASSUMED CARE OF PT AT 1900. PT IS A/OX4, DENIES N/T IN EXTREMITES. HEART SOUNDS REGULAR, LUNG SOUNDS HAVE CRACKLES AT THE BASES, PT CURRENTLY ON 2L NC, DENIES CP/SOB. PT HAS PEG TUBE. PT RECEIVED FEEDINGS AT 0300. PT C/O PAIN IN HIS LOWER BACK AND SHOULDER, MEDICATED PER EMAR. PT IS CONTINENT OF URINE, PT WALKS TO BATHROOM. CALL LIGHT IN REACH, BED IN LOWEST POSTION, WILL CONTINUE TO MONITOR UNTIL DAYSHIFT NURSE ARRIVES.
[2019-09-24 05:28] LABS: BASOPHILS ABSOLUTE AUTO 0.02 K/mm3 (0.00-0.23); BASOPHILS PERCENT AUTO 0 % (0-2); EOSINOPHILS ABSOLUTE AUTO 0.18 K/mm3 (0.00-0.68); EOSINOPHILS PERCENT AUTO 3 % (0-6); Hematocrit 28.9 % (37.0-53.0); Hemoglobin 9.2 g/dL (13.5-17.5); IMMATURE GRAN ABSOLUTE AUTO 0.05 K/mm3 (0.00-0.10); IMMATURE GRAN PERCENT AUTO 1 % (0-1); LYMPHOCYTES ABSOLUTE AUTO 1.95 K/mm3 (0.84-5.20); LYMPHOCYTES PERCENT AUTO 33 % (21-46); MONOCYTES ABSOLUTE AUTO 0.71 K/mm3 (0.16-1.47); MONOCYTES PERCENT AUTO 12 % (4-13); Mean Corpuscular HGB 32.1 pg (26.0-34.0); Mean Corpuscular HGB Conc 31.8 g/dL (31.5-36.5); Mean Corpuscular Volume 101 fL (80-100); Mean Platelet Volume 10.7 fL (9.1-12.4); NEUTROPHILS ABSOLUTE AUTO 3.03 K/mm3 (1.96-9.15); NEUTROPHILS PERCENT AUTO 51 % (41-73); Platelet Count 223 K/mm3 (150-400); RDW Coefficient Variation 15.2 % (11.7-14.2); RDW Standard Deviation 56.9 fL (35.1-46.3); Red Blood Cell Count 2.87 M/mm3 (4.30-5.90); White Blood Cell Count 5.94 K/mm3 (4.00-11.30)
[2019-09-24 05:43] LABS: Anion Gap 5 mmol/L (6-16); Blood Urea Nitrogen 30 mg/dL (8-24); Bun/Creatinine Ratio 36.2 (12.0-20.0); CO2, Blood 26 mmol/L (21-32); Calcium, Blood 8.1 mg/dL (8.5-10.1); Chloride, Blood 106 mmol/L (98-108); Creatinine, Blood 0.83 mg/dL (0.60-1.20); Glomerular Filtration Rate >60 (60-); Glucose, Blood 261 mg/dL (70-99); Potassium, Blood 4.2 mmol/L (3.5-5.5); Sodium, Blood 137 mmol/L (136-145)
--- NOTE | 2019-09-24 11:40 | NUR ---
PATIENT REFUSED 1100 FEEDING. AT BEDSIDE
--- NOTE | 2019-09-24 18:37 | NUR ---
SHIFT SUMMARY PT A&O PLEASENT AND COOPERATIVE. UP SBA TO BSC/BR. MEDICATED PER RX FOR C/O LOW BACK PAIN T/O SHIFT. PT REPORTED NO BM FOR A FEW DAYS, BOWEL CARE STARTED NO RESULTS YET. PT DIRECTS TUBE FEEDING AND H20 AMOUNTS, REFUSED 1100 FEEDING AND HAD ONLY 1 CAN AT 1500 FEEDING. REPORTED "FEELING FULL" AND HAD CONCERS ABOUT "IT BACKING UP AND ASPIRATION" PEG HAD NO RESIDUALS. PLAN IS FOR DC HOME WITH IV ABX AND HOME HEALTH TOMORROW. PT IS EAGER TO GO HOME. WAS INTO VISIT TODAY.
--- NOTE | 2019-09-25 04:24 | NUR ---
SHIFT SUMMARY ASSUMED CARE OF PT AT 1900. PT IS A/OX4, DENIES N/T IN EXTREMITIES. HEART SOUNDS REUGLAR, LUNG SOUNDS HAVE CRACKLES AT THE BASES,PT IS ON 2L NC AT BASELINE, DENIES SOB/CP. PT HAS PEG TUBE, PT ONLY TOOK ONE CAN OF FEEDING THIS AM. PT C/O BACK PAIN, MEDICATED PER EMAR. PT INDEPENDENT TO BATHROOM. PT SLEPT MOST OF THE NIGHT. CALL LIGHT IN REACH, BED IN LOWEST POSTION, WILL CONTINUE TO MONITOR UNTIL DAYSHIFT NURSE ARRIVES.
[2019-09-25 05:21] LABS: BASOPHILS ABSOLUTE AUTO 0.03 K/mm3 (0.00-0.23); BASOPHILS PERCENT AUTO 0 % (0-2); EOSINOPHILS ABSOLUTE AUTO 0.21 K/mm3 (0.00-0.68); EOSINOPHILS PERCENT AUTO 3 % (0-6); Hematocrit 28.9 % (37.0-53.0); Hemoglobin 9.4 g/dL (13.5-17.5); IMMATURE GRAN ABSOLUTE AUTO 0.07 K/mm3 (0.00-0.10); IMMATURE GRAN PERCENT AUTO 1 % (0-1); LYMPHOCYTES ABSOLUTE AUTO 2.18 K/mm3 (0.84-5.20); LYMPHOCYTES PERCENT AUTO 31 % (21-46); MONOCYTES ABSOLUTE AUTO 0.67 K/mm3 (0.16-1.47); MONOCYTES PERCENT AUTO 9 % (4-13); Mean Corpuscular HGB 32.6 pg (26.0-34.0); Mean Corpuscular HGB Conc 32.5 g/dL (31.5-36.5); Mean Corpuscular Volume 100 fL (80-100); Mean Platelet Volume 10.5 fL (9.1-12.4); NEUTROPHILS ABSOLUTE AUTO 3.94 K/mm3 (1.96-9.15); NEUTROPHILS PERCENT AUTO 56 % (41-73); Platelet Count 219 K/mm3 (150-400); RDW Coefficient Variation 15.2 % (11.7-14.2); Red Blood Cell Count 2.88 M/mm3 (4.30-5.90)
[2019-09-25 05:54] LABS: Alanine Aminotransfer (ALT/SGP 47 U/L (12-78); Albumin, Blood 2.6 g/dL (3.4-5.0); Albumin/Globulin Ratio 0.7 (0.8-1.8); Alk Phos 68 U/L (50-136); Anion Gap 5 mmol/L (6-16); Aspartate Aminotrans (AST/SGOT 31 U/L (12-37); Bilirubin, Total 0.3 mg/dL (0.1-1.0); Blood Urea Nitrogen 30 mg/dL (8-24); CO2, Blood 26 mmol/L (21-32); Calcium, Blood 8.2 mg/dL (8.5-10.1); Chloride, Blood 108 mmol/L (98-108); Creatinine, Blood 0.86 mg/dL (0.60-1.20); Globulin, Blood 3.5 g/dL (2.2-4.0); Glomerular Filtration Rate >60 (60-); Glucose, Blood 165 mg/dL (70-99); Potassium, Blood 4.1 mmol/L (3.5-5.5); Sodium, Blood 139 mmol/L (136-145); Total Protein, Blood 6.1 g/dL (6.4-8.2)
[2019-09-25] MEDS ORDERED: ASPI81CH PO (12:54)
[2019-09-25] MEDS ORDERED: Pulmicort Fle180 MCG INH (12:58)
[2019-09-25] MEDS ORDERED: [UNRECOGNIZED DRUG - OTHER] IV (12:59)
--- NOTE | 2019-09-25 17:17 | NUR ---
SHIFT SUMMARY PT A/O X4. LUNG SOUNDS DIM T/O. PT IND IN THE ROOM AND USES 2 L O2 VIA NC AT BASELINE. PEG TUBE IN PLACE AND PATENT. 2 CANS OF FEEDING TODAY. MEDICATED PER EMR. VS REVIEWED AND REMAIN UNCHANGED OVERALL. DC WITH HOME HEALTH AT 1705.
== END 2019-09-25 17:04 | disposition home health service (06) | DRG 698 ==
LOC: ER 11:44 → MEDS 14:48 → ENPENDDIS 09-25 12:26 → MEDS 09-25 17:04
PROVIDERS: Emergency Medicine; Internal Medicine; ADMIT Internal Medicine
DX: T83.518A Infection and inflammatory reaction due to other urinary catheter, initial encounter (principal); J69.0 Pneumonitis due to inhalation of food and vomit; I50.42 Chronic combined systolic (congestive) and diastolic (congestive) heart failure; J96.11 Chronic respiratory failure with hypoxia; N39.0 Urinary tract infection, site not specified; J84.9 Interstitial pulmonary disease, unspecified; Z20.828 Contact with and (suspected) exposure to other viral communicable diseases; I11.0 Hypertensive heart disease with heart failure; G89.4 Chronic pain syndrome; R13.10 Dysphagia, unspecified; B96.5 Pseudomonas (aeruginosa) (mallei) (pseudomallei) as the cause of diseases classified elsewhere; Z87.891 Personal history of nicotine dependence; Z99.81 Dependence on supplemental oxygen; J44.9 Chronic obstructive pulmonary disease, unspecified; Z87.01 Personal history of pneumonia (recurrent); I25.2 Old myocardial infarction; I25.10 Atherosclerotic heart disease of native coronary artery without angina pectoris; K21.9 Gastro-esophageal reflux disease without esophagitis; N40.1 Benign prostatic hyperplasia with lower urinary tract symptoms; F32.9 Major depressive disorder, single episode, unspecified; F41.9 Anxiety disorder, unspecified; I73.9 Peripheral vascular disease, unspecified; K52.9 Noninfective gastroenteritis and colitis, unspecified
CPT/HCPCS: 36415; 51701; 71045; 71250; 80048; 80053; 81001; 82947; 83605; 84145; 85025; 85027; 87040; 87077; 87086; 87186; 93005; 93010; 94640; 94664; 94667; 94668; 94760; 96365-59; 97112; 97116; 97162; 98960; 99285-25; A9270-GY; C1751; J0696; J1650; J2543; J7050; J7120; J7512

== ENCOUNTER → 2019-09-29 | Outpatient (CLI) | payer MEDICARE ==
[~2019-09-29] MED LIST changes: +ACET325 PT; +ALBU2.5V5 NEB; +ATOR20 PT; +Aspirin EC81 MG PT; +CARV3.125 PT; +CREON DR 12,001 EACH PT; +DOC250 PT; +DOXA4 PT; +ESCI10 PT; +FENTANYL1 EA10 TD; +GABA600 PT; +MIRALAX17 GM PT; +PRED20 PT; +Pulmicort Fle180 MCG INH; +TORSE20 PT; +[UNRECOGNIZED DRUG - OTHER] IV
[2019-09-29 19:48] LABS: BASOPHILS ABSOLUTE AUTO 0.02 K/mm3 (0.00-0.23); BASOPHILS PERCENT AUTO 0 % (0-2); EOSINOPHILS ABSOLUTE AUTO 0.09 K/mm3 (0.00-0.68); EOSINOPHILS PERCENT AUTO 2 % (0-6); Hematocrit 27.8 % (37.0-53.0); IMMATURE GRAN ABSOLUTE AUTO 0.04 K/mm3 (0.00-0.10); IMMATURE GRAN PERCENT AUTO 1 % (0-1); LYMPHOCYTES PERCENT AUTO 25 % (21-46); MONOCYTES ABSOLUTE AUTO 0.42 K/mm3 (0.16-1.47); MONOCYTES PERCENT AUTO 7 % (4-13); Mean Corpuscular HGB 32.5 pg (26.0-34.0); Mean Corpuscular HGB Conc 32.4 g/dL (31.5-36.5); Mean Corpuscular Volume 100 fL (80-100); Mean Platelet Volume 10.7 fL (9.1-12.4); NEUTROPHILS ABSOLUTE AUTO 3.94 K/mm3 (1.96-9.15); NEUTROPHILS PERCENT AUTO 66 % (41-73); Platelet Count 192 K/mm3 (150-400); RDW Coefficient Variation 14.9 % (11.7-14.2); RDW Standard Deviation 54.6 fL (35.1-46.3); Red Blood Cell Count 2.77 M/mm3 (4.30-5.90); White Blood Cell Count 6.01 K/mm3 (4.00-11.30)
[2019-09-29 20:32] LABS: Albumin, Blood 2.9 g/dL (3.4-5.0); Anion Gap 4 mmol/L (6-16); Blood Urea Nitrogen 34 mg/dL (8-24); Bun/Creatinine Ratio 39.4 (12.0-20.0); CO2, Blood 30 mmol/L (21-32); Calcium, Blood 8.9 mg/dL (8.5-10.1); Chloride, Blood 104 mmol/L (98-108); Creatinine, Blood 0.86 mg/dL (0.60-1.20); Glomerular Filtration Rate >60 (60-); Glucose, Blood 106 mg/dL (70-99); Phosphorus, Blood 3.5 mg/dL (2.5-4.9); Sodium, Blood 138 mmol/L (136-145)
== END | disposition home or self-care (01) ==
LOC: LAB 19:00 → LAB SHORT 19:00
PROVIDERS: Internal Medicine
DX: E53.8 Deficiency of other specified B group vitamins (principal); I11.0 Hypertensive heart disease with heart failure; I50.42 Chronic combined systolic (congestive) and diastolic (congestive) heart failure; R65.10 Systemic inflammatory response syndrome (SIRS) of non-infectious origin without acute organ dysfunction; J44.0 Chronic obstructive pulmonary disease with (acute) lower respiratory infection; J18.9 Pneumonia, unspecified organism; J96.11 Chronic respiratory failure with hypoxia; N39.0 Urinary tract infection, site not specified; B96.5 Pseudomonas (aeruginosa) (mallei) (pseudomallei) as the cause of diseases classified elsewhere
CPT/HCPCS: 80069; 83880; 85025

== ENCOUNTER 2019-10-21 07:30 | Day surgery (SDC) | payer MEDICARE ==
[~2019-10-21] VITALS: Ht 185.4 cm; Wt 77.0 kg
--- NOTE | 2019-10-21 10:55 | NUR ---
PT AND S/O VERBALIZES UNDERSTANDING WRITTEN AND VERBAL INSTRUCTIONS. VSS. NADN. PT DENIES QUESTIONS OR NEEDS. IV DC'D. CATH INTACT. PRESSURE DSG APPLIED. PT DRESSES SELF WITHOUT DIFF. DC TO HOME VIA S/O BY WC.
[2019-10-22] MEDS ORDERED: FERSU90EL (22:57)
== END 2019-10-21 10:30 | disposition home or self-care (01) ==
LOC: MHTC 07:30
DX: Z43.1 Encounter for attention to gastrostomy (principal); J69.0 Pneumonitis due to inhalation of food and vomit; E78.5 Hyperlipidemia, unspecified; I11.0 Hypertensive heart disease with heart failure; I50.30 Unspecified diastolic (congestive) heart failure; J44.9 Chronic obstructive pulmonary disease, unspecified; J96.11 Chronic respiratory failure with hypoxia; Z87.891 Personal history of nicotine dependence; Z88.5 Allergy status to narcotic agent; Z88.3 Allergy status to other anti-infective agents; Z79.899 Other long term (current) drug therapy; Z79.82 Long term (current) use of aspirin
CPT/HCPCS: 99152; 99153; C1769; C1887; J2250; J3010; J7030; Q9967

== ENCOUNTER 2019-10-22 22:16 | Emergency (ER) | payer MEDICARE ==
[~2019-10-22] VITALS: Ht 188 cm; Wt 74.8 kg
[2019-10-22] MEDS ORDERED: FERSU90EL (22:57)
[2019-10-23] MEDS ORDERED: FLUT.05NI (13:00)
[2019-10-23] MEDS ORDERED: MORP10S (13:02)
== END 2019-10-22 23:59 | disposition home or self-care (01) ==
LOC: ER 22:16
DX: K94.21 Gastrostomy hemorrhage (principal); F44.9 Dissociative and conversion disorder, unspecified; Z88.8 Allergy status to other drugs, medicaments and biological substances; Z88.5 Allergy status to narcotic agent; Z79.899 Other long term (current) drug therapy; Z87.891 Personal history of nicotine dependence
CPT/HCPCS: 99282

== ENCOUNTER 2019-10-23 11:19 | Emergency (ER) | payer MEDICARE ==
[~2019-10-23] VITALS: Ht 188 cm; Wt 74.8 kg
[~2019-10-23 11:19] MED LIST changes: +FERSU90EL
[2019-10-23 11:55] LABS: BASOPHILS ABSOLUTE AUTO 0.04 K/mm3 (0.00-0.23); BASOPHILS PERCENT AUTO 0 % (0-2); EOSINOPHILS ABSOLUTE AUTO 0.28 K/mm3 (0.00-0.68); EOSINOPHILS PERCENT AUTO 3 % (0-6); Hematocrit 36.6 % (37.0-53.0); IMMATURE GRAN ABSOLUTE AUTO 0.04 K/mm3 (0.00-0.10); IMMATURE GRAN PERCENT AUTO 0 % (0-1); LYMPHOCYTES ABSOLUTE AUTO 2.54 K/mm3 (0.84-5.20); LYMPHOCYTES PERCENT AUTO 23 % (21-46); MONOCYTES ABSOLUTE AUTO 1.08 K/mm3 (0.16-1.47); MONOCYTES PERCENT AUTO 10 % (4-13); Mean Corpuscular HGB 33.2 pg (26.0-34.0); Mean Corpuscular HGB Conc 32.8 g/dL (31.5-36.5); Mean Corpuscular Volume 101 fL (80-100); Mean Platelet Volume 10.6 fL (9.1-12.4); NEUTROPHILS ABSOLUTE AUTO 7.17 K/mm3 (1.96-9.15); NEUTROPHILS PERCENT AUTO 64 % (41-73); Platelet Count 157 K/mm3 (150-400); RDW Coefficient Variation 14.2 % (11.7-14.2); RDW Standard Deviation 53.7 fL (35.1-46.3); Red Blood Cell Count 3.61 M/mm3 (4.30-5.90); White Blood Cell Count 11.15 K/mm3 (4.00-11.30)
[2019-10-23 12:21] LABS: Alanine Aminotransfer (ALT/SGP 40 U/L (12-78); Albumin, Blood 3.8 g/dL (3.4-5.0); Alk Phos 79 U/L (50-136); Anion Gap 6 mmol/L (6-16); Aspartate Aminotrans (AST/SGOT 35 U/L (12-37); Bilirubin, Total 0.5 mg/dL (0.1-1.0); Blood Urea Nitrogen 48 mg/dL (8-24); Bun/Creatinine Ratio 45.3 (12.0-20.0); CO2, Blood 35 mmol/L (21-32); Calcium, Blood 9.6 mg/dL (8.5-10.1); Chloride, Blood 103 mmol/L (98-108); Creatinine, Blood 1.06 mg/dL (0.60-1.20); Globulin, Blood 3.9 g/dL (2.2-4.0); Glomerular Filtration Rate >60 (60-); Glucose, Blood 105 mg/dL (70-99); Potassium, Blood 3.2 mmol/L (3.5-5.5); Sodium, Blood 144 mmol/L (136-145); Total Protein, Blood 7.7 g/dL (6.4-8.2); Troponin I <0.015 ng/mL (0.000-0.040)
[2019-10-23] MEDS ORDERED: FLUT.05NI (13:00)
[2019-10-23] MEDS ORDERED: MORP10S (13:02)
== END 2019-10-23 14:20 | disposition home or self-care (01) ==
LOC: ER 11:19
PROVIDERS: Emergency Medicine
DX: K94.21 Gastrostomy hemorrhage (principal); R07.89 Other chest pain; J44.9 Chronic obstructive pulmonary disease, unspecified; K21.9 Gastro-esophageal reflux disease without esophagitis; Z88.8 Allergy status to other drugs, medicaments and biological substances; Z88.5 Allergy status to narcotic agent; Z79.51 Long term (current) use of inhaled steroids; Z79.82 Long term (current) use of aspirin; Z79.52 Long term (current) use of systemic steroids; Z79.899 Other long term (current) drug therapy; Z87.891 Personal history of nicotine dependence
CPT/HCPCS: 36415; 74022; 80053; 84484; 85025; 93005; 93010; 99284-25

== ENCOUNTER → 2019-10-30 | Outpatient (CLI) | payer MEDICARE ==
[~2019-10-30] MED LIST changes: +CREON DR 12,001 EACH PO; +FEROSUL220 MG/51 PT; -FERSU90EL; +PROP10 PT
== END | disposition home or self-care (01) ==
LOC: LAB SHORT 14:28 → PLD 14:28
DX: L03.90 Cellulitis, unspecified (principal); B37.2 Candidiasis of skin and nail
CPT/HCPCS: 87070; 87075; 87077; 87186; 87205

== ENCOUNTER 2019-12-04 04:54 | Inpatient (IN) | payer MEDICARE, OTHER ==
[~2019-12-04] VITALS: Ht 188 cm; Wt 74.8 kg
[~2019-12-04 04:54] MED LIST changes: -CREON DR 12,001 EACH PO; +PIPERACIL-TA3.375 G2 IV; +PROBIOTIC PT
[2019-12-04 05:59] LABS: BASOPHILS ABSOLUTE AUTO 0.01 K/mm3 (0.00-0.23); BASOPHILS PERCENT AUTO 0 % (0-2); EOSINOPHILS ABSOLUTE AUTO 0.14 K/mm3 (0.00-0.68); EOSINOPHILS PERCENT AUTO 2 % (0-6); Hematocrit 30.9 % (37.0-53.0); Hemoglobin 10.4 g/dL (13.5-17.5); IMMATURE GRAN ABSOLUTE AUTO 0.03 K/mm3 (0.00-0.10); IMMATURE GRAN PERCENT AUTO 1 % (0-1); LYMPHOCYTES ABSOLUTE AUTO 0.49 K/mm3 (0.84-5.20); LYMPHOCYTES PERCENT AUTO 8 % (21-46); MONOCYTES ABSOLUTE AUTO 0.71 K/mm3 (0.16-1.47); MONOCYTES PERCENT AUTO 12 % (4-13); Mean Corpuscular HGB 33.3 pg (26.0-34.0); Mean Corpuscular HGB Conc 33.7 g/dL (31.5-36.5); Mean Corpuscular Volume 99 fL (80-100); Mean Platelet Volume 10.9 fL (9.1-12.4); NEUTROPHILS ABSOLUTE AUTO 4.76 K/mm3 (1.96-9.15); NEUTROPHILS PERCENT AUTO 77 % (41-73); Platelet Count 184 K/mm3 (150-400); RDW Coefficient Variation 13.5 % (11.7-14.2); RDW Standard Deviation 48.4 fL (35.1-46.3); Red Blood Cell Count 3.12 M/mm3 (4.30-5.90); White Blood Cell Count 6.14 K/mm3 (4.00-11.30)
[2019-12-04 06:06] LABS: Alanine Aminotransfer (ALT/SGP 41 U/L (12-78); Albumin, Blood 3.3 g/dL (3.4-5.0); Albumin/Globulin Ratio 0.8 (0.8-1.8); Alk Phos 108 U/L (50-136); Anion Gap 7 mmol/L (6-16); Aspartate Aminotrans (AST/SGOT 28 U/L (12-37); Bilirubin, Total 0.4 mg/dL (0.1-1.0); Blood Urea Nitrogen 37 mg/dL (8-24); Bun/Creatinine Ratio 42.5 (12.0-20.0); CO2, Blood 26 mmol/L (21-32); Calcium, Blood 9.1 mg/dL (8.5-10.1); Chloride, Blood 109 mmol/L (98-108); Creatinine, Blood 0.87 mg/dL (0.60-1.20); Globulin, Blood 3.9 g/dL (2.2-4.0); Glomerular Filtration Rate >60 (60-); Glucose, Blood 112 mg/dL (70-99); Potassium, Blood 3.1 mmol/L (3.5-5.5); Sodium, Blood 142 mmol/L (136-145); Total Protein, Blood 7.2 g/dL (6.4-8.2); Troponin I 0.018 ng/mL (0.000-0.040)
[2019-12-04 06:14] LABS: Source, Urine Voided
[2019-12-04 06:18] LABS: Appearance, Urine Clear (Clear); Bilirubin, Urine Neg (Neg); Blood, Urine Neg (Neg); Color, Urine Yellow (P-Yellow); Glucose Qualitative, Urine Neg (Neg); Ketones, Urine Neg (Neg); Leukocyte Esterase, Urine Neg (Neg); Nitrite, Urine Neg (Neg); Protein, Urine Neg (Neg); Specific Gravity, Urine 1.015 (1.003-1.022); Urobilinogen, Urine NORM (Normal)
[2019-12-04] MEDS ORDERED: BUDESONIDE0.5 MG/2 M INH (12:10)
[2019-12-04] MEDS ORDERED: CARV3.125 PO (12:11)
[2019-12-04] MEDS ORDERED: FLUT.05NI (12:44)
--- NOTE | 2019-12-04 17:50 | NUR ---
SHIFT SUMMARY PT AXO, PLEASANT AND COOPERATIVE WITH CARE. IV PATENT AND INFUSING PER EMAR. J/G TUBE IN PLACE. SKIN REDDENED UNDER GAUZE. PT STATES THAT HE REPLACED THIS AGUZE YESTERDAY. PT UP WITH 1 ASSIST. AT 1050 WHEN NURSE ADMINISTERED POTASSIUM CHLORIDE, ABOUT HALF OF MEDICATION SPILLED, ARIES ALFORD NOTIFIED AND 20 MORE MEQ'S ORDERED. ADMINISTERED PER EMAR. PT MEDICATED FOR PAIN PER EMAR. PT ALSO STATES THAT HE DOES NOT TAKE CREON ANYMORE. WILL NOTIFY PROVIDER. PT AFEBRILE AT THIS TIME. BED IN LOW POSITION, CALL LIGHT WITHIN REACH. PT ON 3L AT THIS TIME.
--- NOTE | 2019-12-04 21:51 | NUR ---
PT TOLERATED PEG TUBE FEEDING; NO RESIDUAL NOTED; ABLE TO FOLLOW SIMPLE VERBAL COMMANDS; DENIES PAIN OR NAUSEA; SITTING LOW FOWLERS POSITION.
--- NOTE | 2019-12-05 03:26 | NUR ---
SHIFT SUMMARY: 74 Y/O MALE RESTED COMFORTABLY ALL SHIFT; PT TOLERATED PEG TUBE FEEDINGS WITHOUT ISSUE; DENIES PAIN OR NAUSEA; HAPPY AND COOPERATIVE; GONZALEZ DRAINING CLEAR YELLOW FLUID; BED LOW POSITION WITH CALL LIGHT AT SIDE.
[2019-12-05 04:53] LABS: BASOPHILS ABSOLUTE AUTO 0.02 K/mm3 (0.00-0.23); BASOPHILS PERCENT AUTO 0 % (0-2); EOSINOPHILS ABSOLUTE AUTO 0.14 K/mm3 (0.00-0.68); EOSINOPHILS PERCENT AUTO 3 % (0-6); Hematocrit 31.1 % (37.0-53.0); Hemoglobin 10.1 g/dL (13.5-17.5); Mean Corpuscular HGB 32.6 pg (26.0-34.0); Mean Corpuscular HGB Conc 32.5 g/dL (31.5-36.5); Mean Corpuscular Volume 100 fL (80-100); Mean Platelet Volume 10.8 fL (9.1-12.4); Platelet Count 161 K/mm3 (150-400); RDW Coefficient Variation 13.8 % (11.7-14.2); RDW Standard Deviation 50.5 fL (35.1-46.3); White Blood Cell Count 5.26 K/mm3 (4.00-11.30)
[2019-12-05 04:57] LABS: IMMATURE GRAN ABSOLUTE AUTO 0.02 K/mm3 (0.00-0.10); IMMATURE GRAN PERCENT AUTO 0 % (0-1); LYMPHOCYTES ABSOLUTE AUTO 1.51 K/mm3 (0.84-5.20); LYMPHOCYTES PERCENT AUTO 29 % (21-46); MONOCYTES ABSOLUTE AUTO 0.88 K/mm3 (0.16-1.47); MONOCYTES PERCENT AUTO 17 % (4-13); NEUTROPHILS ABSOLUTE AUTO 2.69 K/mm3 (1.96-9.15); NEUTROPHILS PERCENT AUTO 51 % (41-73)
[2019-12-05 05:12] LABS: Alanine Aminotransfer (ALT/SGP 67 U/L (12-78); Albumin, Blood 2.6 g/dL (3.4-5.0); Albumin/Globulin Ratio 0.7 (0.8-1.8); Alk Phos 98 U/L (50-136); Anion Gap 8 mmol/L (6-16); Aspartate Aminotrans (AST/SGOT 83 U/L (12-37); Bilirubin, Total 0.4 mg/dL (0.1-1.0); Blood Urea Nitrogen 29 mg/dL (8-24); Bun/Creatinine Ratio 32.2 (12.0-20.0); CO2, Blood 22 mmol/L (21-32); Calcium, Blood 8.3 mg/dL (8.5-10.1); Chloride, Blood 117 mmol/L (98-108); Globulin, Blood 3.5 g/dL (2.2-4.0); Glomerular Filtration Rate >60 (60-); Glucose, Blood 90 mg/dL (70-99); Magnesium, Blood 1.9 mg/dL (1.6-2.4); Phosphorus, Blood 2.7 mg/dL (2.5-4.9); Potassium, Blood 2.9 mmol/L (3.5-5.5); Sodium, Blood 147 mmol/L (136-145); Total Protein, Blood 6.1 g/dL (6.4-8.2)
--- NOTE | 2019-12-05 11:25 | NUR ---
Pt resting in bed and is A&O. Pt reports 9/10 pain. Pt states pain is tolerable due to have a high pain tolerance. Pt denies dyspnea at this time. Pt reports mild anxiety. Offered therapeutic listening and encouraged Pt to discuss fears and concerns. Pt appears withdrawn and responds with minimal answers. Pt does report having concerns regarding to probability of continued hospital visits. Pt does not elaborate further. Attempted open ended questions with Pt still answering only minimally. Ended visit to allow Pt to rest. Palliative Care will remain available for therapeutic visits.
[2019-12-05 16:36] LABS: Anion Gap 6 mmol/L (6-16); Blood Urea Nitrogen 25 mg/dL (8-24); Bun/Creatinine Ratio 29.8 (12.0-20.0); CO2, Blood 25 mmol/L (21-32); Calcium, Blood 8.5 mg/dL (8.5-10.1); Chloride, Blood 118 mmol/L (98-108); Creatinine, Blood 0.84 mg/dL (0.60-1.20); Glomerular Filtration Rate >60 (60-); Glucose, Blood 191 mg/dL (70-99); Potassium, Blood 3.7 mmol/L (3.5-5.5); Sodium, Blood 149 mmol/L (136-145)
--- NOTE | 2019-12-05 17:53 | NUR ---
shift summary patient is pleasant, alert and oriented. denies any concerns at this time. he is currently hooked up to his tube feeding. he reports that there are no concerns at this time. he is moving around well. independent at this time.
--- NOTE | 2019-12-05 19:24 | NUR ---
74 Y/O MALE RESTING COMFORTABLY IN BED; PEG TUBE CLAMPED; DENIES PAIN OR NAUSEA; WEARING O2 AT 2L/M PER NASAL CANNULA; GONZALEZ DRAINING CLEAR YELLOW FLUID; ALERT AND ORIENTED X 4.
--- NOTE | 2019-12-06 04:06 | NUR ---
SHIFT SUMMARY: 74 Y/O MALE RESTED COMFORTABLY ALL SHIFT; DENIES PAIN OR NAUSEA; PEG TUBE CONTINUES TO REQUIRE KANGAROO PUMP TO PERFORM FEEDINGS GRAVITY FEEDINGS REQUIRE SYRINGE AND PLUNGER TO FORCE FLUIDS VIA J-TUBE; UP AD MAYI TO BATHROOM WITHOUT ISSUE; DENIES PAIN OR NAUSEA; BED LOW POSITION WITH CALL LIGHT AT SIDE.
--- NOTE | 2019-12-06 18:08 | NUR ---
SHIFT SUMMARY PATIENT IS PELASATN, ALERT AND ORIENTED. HE HAS BEEN VERY PATIENT WITH US TODAY. HE HAS HAD ONE ENTERAL FEEDING AND ONLY TOLERATED THAT ONE TODAY. HE MAY TAKE ONE MORE TONIGHT. DENIES ANY NYMBNESS, TINGLING, OR NAUSEA. HE IS HAVING GENERALIZED PAIN IN HIS BACK AND HIS NECK. NEW ORDER FOR LIDOCAINE PATCH STARTING TODAY.
--- NOTE | 2019-12-06 21:43 | NUR ---
2133 PT C/O GENERALIZED PAIN RATED 5/10 WITH ROXANOL 10MG AND TYLENOL 500MG (CRUSHED) GIVEN VIA PEG J TUBE; TUBE CONTINUES TO REQUIRE SYRINGE TO PUSH MEDS THRU SYSTEM (UNABLE TO FREE FLOW GRAVITY FEED).
--- NOTE | 2019-12-07 04:09 | NUR ---
SHIFT SUMMARY: 74 Y/O MALE RESTED COMFORTABLY ALL SHIFT; PEG TUBE INFUSIONS VIA J-LINE CONTINUE TO REQUIRE THIS NURSE TO UTILIZE SYRINGE AND PLUNGER TO GIVE MEDS AND KANGAROO PUMP FLUIDS WILL NOT FLOW VIA GRAVITY ALONE; UP AD MAYI TO BATHROOM; CHEEFUL; GONZALEZ DRAINING CLEAR YELLOW FLUID; DENIES PAIN OR NAUSEA; ALERT AND ORIENTED X4; AFEBRILE; BED LOW POSITION WITH CALL LIGHT AT SIDE; PT TOLERATING FEEDINGS WELL VIA PEG TUBE.
[2019-12-07] MEDS ORDERED: LEVOFLOXACIN750 MG PO (13:03)
[2019-12-07] MEDS ORDERED: Amoxicillin500 MG PO (13:03)
--- NOTE | 2019-12-07 14:36 | NUR ---
PATIENT DISCHARGE: PATIENT DISCHARGED TO HOME THIS SHIFT. MEDICATION RECONCILIATION COMPLETED; [facility]. DISCHARGE EDUCATION COMPLETED WITH PATIENT AND FAMILY. PATIENT TRANSPORTED TO EXIT BY [facility] STAFF WITH WHEELCHAIR AT 1430. PATIENT DEPARTED [facility] VIA PRIVATE AUTO.
== END 2019-12-07 14:22 | disposition home or self-care (01) | DRG 871 ==
LOC: ER 04:54 → MEDS 04:55
PROVIDERS: Emergency Medicine; Family Medicine; Nurse Practitioner Acute Care; ADMIT Internal Medicine
DX: A41.81 Sepsis due to Enterococcus (principal); J18.9 Pneumonia, unspecified organism; F11.20 Opioid dependence, uncomplicated; I50.42 Chronic combined systolic (congestive) and diastolic (congestive) heart failure; K86.1 Other chronic pancreatitis; J44.0 Chronic obstructive pulmonary disease with (acute) lower respiratory infection; Z20.828 Contact with and (suspected) exposure to other viral communicable diseases; D50.9 Iron deficiency anemia, unspecified; E78.5 Hyperlipidemia, unspecified; F41.8 Other specified anxiety disorders; E87.6 Hypokalemia; G89.4 Chronic pain syndrome; I11.0 Hypertensive heart disease with heart failure; Z99.81 Dependence on supplemental oxygen; K21.9 Gastro-esophageal reflux disease without esophagitis; M15.9 Polyosteoarthritis, unspecified; K86.89 Other specified diseases of pancreas; I65.23 Occlusion and stenosis of bilateral carotid arteries; I73.9 Peripheral vascular disease, unspecified; Z87.891 Personal history of nicotine dependence; R13.12 Dysphagia, oropharyngeal phase; I25.10 Atherosclerotic heart disease of native coronary artery without angina pectoris; I25.2 Old myocardial infarction
CPT/HCPCS: 36415; 51702; 71045; 80048; 80053; 81003; 83605; 83735; 84100; 84145; 84484; 85025; 87040; 87070; 87077; 87186; 87205; 93005; 93010; 94640; 94760; 96365; 96375; 97162; 97165; 99285-25; A9270; A9270-GY; J1650; J1885; J1940; J2543; J3480; J7030; J7050; J7512; U0003

== ENCOUNTER 2019-12-16 04:04 | Inpatient (IN) | payer MEDICARE, OTHER ==
[~2019-12-16] VITALS: Ht 188 cm; Wt 71.1 kg
[~2019-12-16 04:04] MED LIST changes: +Amoxicillin500 MG PO; +BUDESONIDE0.5 MG/2 M INH; +LEVOFLOXACIN750 MG PO
[2019-12-16 04:23] LABS: BASOPHILS ABSOLUTE AUTO 0.03 K/mm3 (0.00-0.23); BASOPHILS PERCENT AUTO 0 % (0-2); EOSINOPHILS ABSOLUTE AUTO 0.21 K/mm3 (0.00-0.68); EOSINOPHILS PERCENT AUTO 1 % (0-6); Hematocrit 34.5 % (37.0-53.0); Hemoglobin 11.1 g/dL (13.5-17.5); IMMATURE GRAN ABSOLUTE AUTO 0.06 K/mm3 (0.00-0.10); IMMATURE GRAN PERCENT AUTO 0 % (0-1); LYMPHOCYTES ABSOLUTE AUTO 3.06 K/mm3 (0.84-5.20); LYMPHOCYTES PERCENT AUTO 19 % (21-46); MONOCYTES ABSOLUTE AUTO 1.66 K/mm3 (0.16-1.47); MONOCYTES PERCENT AUTO 10 % (4-13); Mean Corpuscular HGB 32.6 pg (26.0-34.0); Mean Corpuscular HGB Conc 32.2 g/dL (31.5-36.5); Mean Corpuscular Volume 101 fL (80-100); Mean Platelet Volume 11.2 fL (9.1-12.4); NEUTROPHILS ABSOLUTE AUTO 11.25 K/mm3 (1.96-9.15); NEUTROPHILS PERCENT AUTO 69 % (41-73); Platelet Count 130 K/mm3 (150-400); RDW Coefficient Variation 13.4 % (11.7-14.2); RDW Standard Deviation 49.6 fL (35.1-46.3); Red Blood Cell Count 3.41 M/mm3 (4.30-5.90); White Blood Cell Count 16.27 K/mm3 (4.00-11.30)
[2019-12-16 04:38] LABS: Alanine Aminotransfer (ALT/SGP 82 U/L (12-78); Albumin, Blood 3.6 g/dL (3.4-5.0); Albumin/Globulin Ratio 0.9 (0.8-1.8); Alk Phos 132 U/L (50-136); Anion Gap 6 mmol/L (6-16); Aspartate Aminotrans (AST/SGOT 72 U/L (12-37); Bilirubin, Total 0.5 mg/dL (0.1-1.0); Blood Urea Nitrogen 38 mg/dL (8-24); Bun/Creatinine Ratio 42.5 (12.0-20.0); CO2, Blood 34 mmol/L (21-32); Calcium, Blood 9.6 mg/dL (8.5-10.1); Chloride, Blood 101 mmol/L (98-108); Globulin, Blood 3.8 g/dL (2.2-4.0); Glomerular Filtration Rate >60 (60-); Glucose, Blood 99 mg/dL (70-99); Potassium, Blood 4.1 mmol/L (3.5-5.5); Sodium, Blood 141 mmol/L (136-145); Total Protein, Blood 7.4 g/dL (6.4-8.2)
[2019-12-16 05:22] LABS: Source, Urine Clean Catch
[2019-12-16 05:24] LABS: Bilirubin, Urine Neg (Neg); Blood, Urine 5+ (Neg); Glucose Qualitative, Urine Neg (Neg); Ketones, Urine Neg (Neg); Leukocyte Esterase, Urine 3+ (Neg); Nitrite, Urine Neg (Neg); Protein, Urine 3+ (Neg); Urobilinogen, Urine NORM (Normal)
[2019-12-16 05:34] LABS: Appearance, Urine Hazy (Clear); Color, Urine Yellow (P-Yellow)
[2019-12-16 05:35] LABS: Amorphous Light (0-Heavy); Bacteria Mod /hpf; Red Blood Cells, Urine 0-2 /hpf (0-2); Squamous Epithelial Cells Few /hpf (Few); White Blood Cells, Urine TNTC /hpf (0-5)
[2019-12-17 05:00] LABS: BASOPHILS ABSOLUTE AUTO 0.03 K/mm3 (0.00-0.23); BASOPHILS PERCENT AUTO 0 % (0-2); EOSINOPHILS ABSOLUTE AUTO 0.21 K/mm3 (0.00-0.68); EOSINOPHILS PERCENT AUTO 2 % (0-6); Hematocrit 31.1 % (37.0-53.0); Hemoglobin 9.9 g/dL (13.5-17.5); IMMATURE GRAN ABSOLUTE AUTO 0.04 K/mm3 (0.00-0.10); IMMATURE GRAN PERCENT AUTO 0 % (0-1); LYMPHOCYTES ABSOLUTE AUTO 2.05 K/mm3 (0.84-5.20); LYMPHOCYTES PERCENT AUTO 21 % (21-46); MONOCYTES ABSOLUTE AUTO 0.69 K/mm3 (0.16-1.47); MONOCYTES PERCENT AUTO 7 % (4-13); Mean Corpuscular HGB 32.9 pg (26.0-34.0); Mean Corpuscular HGB Conc 31.8 g/dL (31.5-36.5); Mean Corpuscular Volume 103 fL (80-100); Mean Platelet Volume 11.1 fL (9.1-12.4); NEUTROPHILS ABSOLUTE AUTO 6.82 K/mm3 (1.96-9.15); NEUTROPHILS PERCENT AUTO 69 % (41-73); Platelet Count 115 K/mm3 (150-400); RDW Coefficient Variation 13.6 % (11.7-14.2); Red Blood Cell Count 3.01 M/mm3 (4.30-5.90); White Blood Cell Count 9.84 K/mm3 (4.00-11.30)
[2019-12-17 05:29] LABS: Alanine Aminotransfer (ALT/SGP 73 U/L (12-78); Albumin, Blood 2.7 g/dL (3.4-5.0); Albumin/Globulin Ratio 0.8 (0.8-1.8); Alk Phos 107 U/L (50-136); Anion Gap 8 mmol/L (6-16); Aspartate Aminotrans (AST/SGOT 70 U/L (12-37); Bilirubin, Total 0.4 mg/dL (0.1-1.0); Blood Urea Nitrogen 33 mg/dL (8-24); Bun/Creatinine Ratio 31.1 (12.0-20.0); CO2, Blood 28 mmol/L (21-32); Calcium, Blood 7.9 mg/dL (8.5-10.1); Chloride, Blood 108 mmol/L (98-108); Creatinine, Blood 1.06 mg/dL (0.60-1.20); Globulin, Blood 3.2 g/dL (2.2-4.0); Glomerular Filtration Rate >60 (60-); Glucose, Blood 255 mg/dL (70-99); Magnesium, Blood 2.1 mg/dL (1.6-2.4); Potassium, Blood 3.5 mmol/L (3.5-5.5); Sodium, Blood 144 mmol/L (136-145); Total Protein, Blood 5.9 g/dL (6.4-8.2)
[2019-12-19 08:40] LABS: BASOPHILS ABSOLUTE AUTO 0.04 K/mm3 (0.00-0.23); BASOPHILS PERCENT AUTO 1 % (0-2); EOSINOPHILS ABSOLUTE AUTO 0.33 K/mm3 (0.00-0.68); EOSINOPHILS PERCENT AUTO 5 % (0-6); Hematocrit 29.7 % (37.0-53.0); Hemoglobin 9.6 g/dL (13.5-17.5); IMMATURE GRAN ABSOLUTE AUTO 0.02 K/mm3 (0.00-0.10); IMMATURE GRAN PERCENT AUTO 0 % (0-1); LYMPHOCYTES ABSOLUTE AUTO 2.55 K/mm3 (0.84-5.20); LYMPHOCYTES PERCENT AUTO 37 % (21-46); MONOCYTES ABSOLUTE AUTO 0.76 K/mm3 (0.16-1.47); MONOCYTES PERCENT AUTO 11 % (4-13); Mean Corpuscular HGB Conc 32.3 g/dL (31.5-36.5); Mean Corpuscular Volume 102 fL (80-100); Mean Platelet Volume 11.2 fL (9.1-12.4); NEUTROPHILS ABSOLUTE AUTO 3.26 K/mm3 (1.96-9.15); NEUTROPHILS PERCENT AUTO 47 % (41-73); Platelet Count 134 K/mm3 (150-400); RDW Coefficient Variation 13.4 % (11.7-14.2); RDW Standard Deviation 50.4 fL (35.1-46.3); Red Blood Cell Count 2.91 M/mm3 (4.30-5.90); White Blood Cell Count 6.96 K/mm3 (4.00-11.30)
[2019-12-19 09:02] LABS: Anion Gap 3 mmol/L (6-16); Blood Urea Nitrogen 21 mg/dL (8-24); Bun/Creatinine Ratio 28.2 (12.0-20.0); CO2, Blood 32 mmol/L (21-32); Calcium, Blood 8.2 mg/dL (8.5-10.1); Chloride, Blood 113 mmol/L (98-108); Creatinine, Blood 0.75 mg/dL (0.60-1.20); Glomerular Filtration Rate >60 (60-); Glucose, Blood 89 mg/dL (70-99); Potassium, Blood 3.6 mmol/L (3.5-5.5); Sodium, Blood 148 mmol/L (136-145)
[2019-12-19] MEDS ORDERED: PIPERACIL-TA3.375 G1 IV (11:18)
== END 2019-12-19 14:59 | disposition home health service (06) | DRG 698 ==
LOC: ER 04:04 → MEDS 05:59
PROVIDERS: Emergency Medicine; Internal Medicine; ADMIT Internal Medicine
DX: T83.511A Infection and inflammatory reaction due to indwelling urethral catheter, initial encounter (principal); A41.52 Sepsis due to Pseudomonas; I50.42 Chronic combined systolic (congestive) and diastolic (congestive) heart failure; J96.11 Chronic respiratory failure with hypoxia; J84.9 Interstitial pulmonary disease, unspecified; N39.0 Urinary tract infection, site not specified; J44.9 Chronic obstructive pulmonary disease, unspecified; I11.0 Hypertensive heart disease with heart failure; E78.5 Hyperlipidemia, unspecified; F32.9 Major depressive disorder, single episode, unspecified; K21.9 Gastro-esophageal reflux disease without esophagitis; N40.0 Benign prostatic hyperplasia without lower urinary tract symptoms; D63.8 Anemia in other chronic diseases classified elsewhere; Z99.81 Dependence on supplemental oxygen; Z87.01 Personal history of pneumonia (recurrent); Z79.82 Long term (current) use of aspirin; Z79.51 Long term (current) use of inhaled steroids; Z87.891 Personal history of nicotine dependence
CPT/HCPCS: 36415; 71046; 80048; 80053; 81001; 83605; 83735; 85025; 87077; 87086; 87186; 93005; 93010; 94640; 94760; 96365; 97161; 97165; 99285-25; A9270; A9270-GY; J1650; J2543; J7030; J7050; J7512

== ENCOUNTER 2020-01-03 03:04 | Emergency (ER) | payer MEDICARE ==
[~2020-01-03] VITALS: Ht 188 cm; Wt 70.3 kg
[~2020-01-03 03:04] MED LIST changes: +PIPERACIL-TA3.375 G1 IV
[2020-01-03 03:35] LABS: BASOPHILS ABSOLUTE AUTO 0.03 K/mm3 (0.00-0.23); BASOPHILS PERCENT AUTO 0 % (0-2); EOSINOPHILS ABSOLUTE AUTO 0.29 K/mm3 (0.00-0.68); EOSINOPHILS PERCENT AUTO 3 % (0-6); Hematocrit 31.7 % (37.0-53.0); Hemoglobin 10.8 g/dL (13.5-17.5); IMMATURE GRAN ABSOLUTE AUTO 0.03 K/mm3 (0.00-0.10); IMMATURE GRAN PERCENT AUTO 0 % (0-1); LYMPHOCYTES ABSOLUTE AUTO 2.34 K/mm3 (0.84-5.20); LYMPHOCYTES PERCENT AUTO 21 % (21-46); MONOCYTES ABSOLUTE AUTO 1.21 K/mm3 (0.16-1.47); MONOCYTES PERCENT AUTO 11 % (4-13); Mean Corpuscular HGB 33.6 pg (26.0-34.0); Mean Corpuscular HGB Conc 34.1 g/dL (31.5-36.5); Mean Corpuscular Volume 99 fL (80-100); NEUTROPHILS ABSOLUTE AUTO 7.47 K/mm3 (1.96-9.15); NEUTROPHILS PERCENT AUTO 66 % (41-73); Platelet Count 143 K/mm3 (150-400); RDW Coefficient Variation 13.5 % (11.7-14.2); RDW Standard Deviation 48.6 fL (35.1-46.3); Red Blood Cell Count 3.21 M/mm3 (4.30-5.90); White Blood Cell Count 11.37 K/mm3 (4.00-11.30)
[2020-01-03 03:54] LABS: Alanine Aminotransfer (ALT/SGP 48 U/L (12-78); Albumin, Blood 3.3 g/dL (3.4-5.0); Albumin/Globulin Ratio 0.8 (0.8-1.8); Alk Phos 126 U/L (50-136); Anion Gap 3 mmol/L (6-16); Aspartate Aminotrans (AST/SGOT 35 U/L (12-37); Bilirubin, Total 0.4 mg/dL (0.1-1.0); Blood Urea Nitrogen 34 mg/dL (8-24); Bun/Creatinine Ratio 40.6 (12.0-20.0); CO2, Blood 32 mmol/L (21-32); Calcium, Blood 9.3 mg/dL (8.5-10.1); Chloride, Blood 106 mmol/L (98-108); Creatinine, Blood 0.84 mg/dL (0.60-1.20); Globulin, Blood 3.9 g/dL (2.2-4.0); Glomerular Filtration Rate >60 (60-); Glucose, Blood 102 mg/dL (70-99); Potassium, Blood 3.4 mmol/L (3.5-5.5); Sodium, Blood 141 mmol/L (136-145); Total Protein, Blood 7.2 g/dL (6.4-8.2)
[2020-01-03 04:04] LABS: Source, Urine Clean Catch
[2020-01-03 04:06] LABS: Bilirubin, Urine Neg (Neg); Blood, Urine Neg (Neg); Glucose Qualitative, Urine Neg (Neg); Ketones, Urine Neg (Neg); Leukocyte Esterase, Urine Neg (Neg); Nitrite, Urine Neg (Neg); Protein, Urine Neg (Neg); Urobilinogen, Urine NORM (Normal)
[2020-01-03 04:08] LABS: Appearance, Urine Clear (Clear); Color, Urine Yellow (P-Yellow)
[2020-01-03] MEDS ORDERED: CEPH500 PO (05:59)
== END 2020-01-03 08:10 | disposition home or self-care (01) ==
LOC: ER 03:04
PROVIDERS: Emergency Medicine
DX: J18.9 Pneumonia, unspecified organism (principal); J44.9 Chronic obstructive pulmonary disease, unspecified; Z79.52 Long term (current) use of systemic steroids; Z79.82 Long term (current) use of aspirin; Z79.51 Long term (current) use of inhaled steroids; Z79.899 Other long term (current) drug therapy
CPT/HCPCS: 36415; 51701; 71045; 80053; 81003; 85025; 87070; 87077; 87106; 87186; 87205; 93005; 93010; 96361; 96365-59; 99284-25; J0696; J7030

== ENCOUNTER 2020-01-09 16:02 | Emergency (ER) | payer MEDICARE ==
[~2020-01-09] VITALS: Ht 188 cm; Wt 70.3 kg
[~2020-01-09 16:02] MED LIST changes: +CEPH500 PO
[2020-01-09] MEDS ORDERED: ATOR20 PO (18:44)
[2020-01-09] MEDS ORDERED: ESCI10 PO (18:45)
[2020-01-09] MEDS ORDERED: PAROEX473 ML (18:47)
[2020-01-09] MEDS ORDERED: TORSE20 PO (18:48)
[2020-01-09 18:49] LABS: BASOPHILS ABSOLUTE AUTO 0.02 K/mm3 (0.00-0.23); BASOPHILS PERCENT AUTO 0 % (0-2); EOSINOPHILS ABSOLUTE AUTO 0.12 K/mm3 (0.00-0.68); EOSINOPHILS PERCENT AUTO 2 % (0-6); Hematocrit 30.6 % (37.0-53.0); IMMATURE GRAN ABSOLUTE AUTO 0.04 K/mm3 (0.00-0.10); IMMATURE GRAN PERCENT AUTO 1 % (0-1); LYMPHOCYTES ABSOLUTE AUTO 1.77 K/mm3 (0.84-5.20); LYMPHOCYTES PERCENT AUTO 29 % (21-46); MONOCYTES ABSOLUTE AUTO 0.55 K/mm3 (0.16-1.47); MONOCYTES PERCENT AUTO 9 % (4-13); Mean Corpuscular HGB 32.9 pg (26.0-34.0); Mean Corpuscular HGB Conc 32.7 g/dL (31.5-36.5); Mean Corpuscular Volume 101 fL (80-100); Mean Platelet Volume 10.9 fL (9.1-12.4); NEUTROPHILS ABSOLUTE AUTO 3.72 K/mm3 (1.96-9.15); NEUTROPHILS PERCENT AUTO 60 % (41-73); Platelet Count 213 K/mm3 (150-400); RDW Coefficient Variation 13.2 % (11.7-14.2); RDW Standard Deviation 49.2 fL (35.1-46.3); Red Blood Cell Count 3.04 M/mm3 (4.30-5.90); White Blood Cell Count 6.22 K/mm3 (4.00-11.30)
[2020-01-09] MEDS ORDERED: ZYRTEC10 M2 (18:49)
[2020-01-09] MEDS ORDERED: LEVO750 PO (18:50)
[2020-01-09 19:10] LABS: Alanine Aminotransfer (ALT/SGP 41 U/L (12-78); Albumin, Blood 2.8 g/dL (3.4-5.0); Albumin/Globulin Ratio 0.7 (0.8-1.8); Alk Phos 118 U/L (50-136); Anion Gap 4 mmol/L (6-16); Aspartate Aminotrans (AST/SGOT 34 U/L (12-37); Bilirubin, Total 0.2 mg/dL (0.1-1.0); Blood Urea Nitrogen 23 mg/dL (8-24); Bun/Creatinine Ratio 27.9 (12.0-20.0); CO2, Blood 33 mmol/L (21-32); Calcium, Blood 9.4 mg/dL (8.5-10.1); Chloride, Blood 105 mmol/L (98-108); Creatinine, Blood 0.82 mg/dL (0.60-1.20); Globulin, Blood 4.1 g/dL (2.2-4.0); Glomerular Filtration Rate >60 (60-); Glucose, Blood 87 mg/dL (70-99); Potassium, Blood 3.9 mmol/L (3.5-5.5); Sodium, Blood 142 mmol/L (136-145); Total Protein, Blood 6.9 g/dL (6.4-8.2)
[2020-01-09] MEDS ORDERED: Levaquin750 MG PO (19:22)
== END 2020-01-09 20:19 | disposition home or self-care (01) ==
LOC: ER 16:02
PROVIDERS: Physician Assistant
DX: K94.23 Gastrostomy malfunction (principal); Z79.899 Other long term (current) drug therapy; Z79.01 Long term (current) use of anticoagulants; Z79.52 Long term (current) use of systemic steroids; Z79.51 Long term (current) use of inhaled steroids; Z79.82 Long term (current) use of aspirin
CPT/HCPCS: 36415; 80053; 83690; 85025; 99283

== ENCOUNTER 2020-01-13 07:57 | Emergency (ER) | payer MEDICARE ==
[~2020-01-13] VITALS: Ht 188 cm; Wt 70.3 kg
[~2020-01-13 07:57] MED LIST changes: +ATOR20 PO; +Levaquin750 MG PO; +PAROEX473 ML; +TORSE20 PO; +ZYRTEC10 M2
[2020-01-13 08:40] LABS: BASOPHILS ABSOLUTE AUTO 0.02 K/mm3 (0.00-0.23); BASOPHILS PERCENT AUTO 0 % (0-2); EOSINOPHILS ABSOLUTE AUTO 0.23 K/mm3 (0.00-0.68); EOSINOPHILS PERCENT AUTO 3 % (0-6); Hematocrit 27.8 % (37.0-53.0); IMMATURE GRAN ABSOLUTE AUTO 0.03 K/mm3 (0.00-0.10); IMMATURE GRAN PERCENT AUTO 0 % (0-1); LYMPHOCYTES ABSOLUTE AUTO 2.16 K/mm3 (0.84-5.20); LYMPHOCYTES PERCENT AUTO 25 % (21-46); MONOCYTES ABSOLUTE AUTO 0.84 K/mm3 (0.16-1.47); MONOCYTES PERCENT AUTO 10 % (4-13); Mean Corpuscular HGB 32.6 pg (26.0-34.0); Mean Corpuscular HGB Conc 32.4 g/dL (31.5-36.5); Mean Corpuscular Volume 101 fL (80-100); Mean Platelet Volume 9.9 fL (9.1-12.4); NEUTROPHILS ABSOLUTE AUTO 5.37 K/mm3 (1.96-9.15); NEUTROPHILS PERCENT AUTO 62 % (41-73); Platelet Count 197 K/mm3 (150-400); RDW Coefficient Variation 13.2 % (11.7-14.2); RDW Standard Deviation 49.1 fL (35.1-46.3); Red Blood Cell Count 2.76 M/mm3 (4.30-5.90); White Blood Cell Count 8.65 K/mm3 (4.00-11.30)
[2020-01-13 09:18] LABS: Alanine Aminotransfer (ALT/SGP 32 U/L (12-78); Albumin, Blood 2.7 g/dL (3.4-5.0); Albumin/Globulin Ratio 0.8 (0.8-1.8); Alk Phos 105 U/L (50-136); Anion Gap 2 mmol/L (6-16); Aspartate Aminotrans (AST/SGOT 34 U/L (12-37); Bilirubin, Total 0.2 mg/dL (0.1-1.0); Blood Urea Nitrogen 23 mg/dL (8-24); Bun/Creatinine Ratio 23.9 (12.0-20.0); CO2, Blood 35 mmol/L (21-32); Calcium, Blood 8.6 mg/dL (8.5-10.1); Chloride, Blood 105 mmol/L (98-108); Creatinine, Blood 0.96 mg/dL (0.60-1.20); Globulin, Blood 3.5 g/dL (2.2-4.0); Glomerular Filtration Rate >60 (60-); Glucose, Blood 111 mg/dL (70-99); Potassium, Blood 3.1 mmol/L (3.5-5.5); Sodium, Blood 142 mmol/L (136-145); Total Protein, Blood 6.2 g/dL (6.4-8.2); Troponin I <0.015 ng/mL (0.000-0.040)
[2020-01-13] MEDS ORDERED: POTA20LUD PO (10:55)
== END 2020-01-13 11:05 | disposition home or self-care (01) ==
LOC: ER 07:57
PROVIDERS: Emergency Medicine
DX: R55 Syncope and collapse (principal); E87.6 Hypokalemia; J44.9 Chronic obstructive pulmonary disease, unspecified; Z88.3 Allergy status to other anti-infective agents; Z88.5 Allergy status to narcotic agent; Z88.8 Allergy status to other drugs, medicaments and biological substances; Z79.82 Long term (current) use of aspirin; Z79.51 Long term (current) use of inhaled steroids; Z79.52 Long term (current) use of systemic steroids; Z87.891 Personal history of nicotine dependence; Z79.899 Other long term (current) drug therapy
CPT/HCPCS: 71045; 80053; 83880; 84484; 85025; 93005; 93010; 96374; 99284-25; J2405

== ENCOUNTER 2020-01-13 21:42 | Emergency (ER) | payer MEDICARE ==
[~2020-01-13] VITALS: Ht 188 cm; Wt 70.3 kg
[~2020-01-13 21:42] MED LIST changes: +POTA20LUD PO
[2020-01-13 22:43] LABS: BASOPHILS ABSOLUTE AUTO 0.03 K/mm3 (0.00-0.23); BASOPHILS PERCENT AUTO 0 % (0-2); EOSINOPHILS ABSOLUTE AUTO 0.18 K/mm3 (0.00-0.68); EOSINOPHILS PERCENT AUTO 2 % (0-6); Hematocrit 31.7 % (37.0-53.0); Hemoglobin 10.1 g/dL (13.5-17.5); IMMATURE GRAN ABSOLUTE AUTO 0.04 K/mm3 (0.00-0.10); IMMATURE GRAN PERCENT AUTO 0 % (0-1); LYMPHOCYTES PERCENT AUTO 21 % (21-46); MONOCYTES ABSOLUTE AUTO 0.78 K/mm3 (0.16-1.47); MONOCYTES PERCENT AUTO 9 % (4-13); Mean Corpuscular HGB 32.1 pg (26.0-34.0); Mean Corpuscular HGB Conc 31.9 g/dL (31.5-36.5); Mean Corpuscular Volume 101 fL (80-100); Mean Platelet Volume 10.1 fL (9.1-12.4); NEUTROPHILS ABSOLUTE AUTO 6.05 K/mm3 (1.96-9.15); NEUTROPHILS PERCENT AUTO 67 % (41-73); Platelet Count 244 K/mm3 (150-400); RDW Coefficient Variation 13.1 % (11.7-14.2); RDW Standard Deviation 48.7 fL (35.1-46.3); Red Blood Cell Count 3.15 M/mm3 (4.30-5.90); White Blood Cell Count 8.98 K/mm3 (4.00-11.30)
[2020-01-13 23:05] LABS: Alanine Aminotransfer (ALT/SGP 35 U/L (12-78); Albumin, Blood 3.1 g/dL (3.4-5.0); Albumin/Globulin Ratio 0.8 (0.8-1.8); Alk Phos 115 U/L (50-136); Anion Gap 1 mmol/L (6-16); Aspartate Aminotrans (AST/SGOT 32 U/L (12-37); Bilirubin, Total 0.2 mg/dL (0.1-1.0); Blood Urea Nitrogen 22 mg/dL (8-24); CO2, Blood 33 mmol/L (21-32); Chloride, Blood 106 mmol/L (98-108); Glomerular Filtration Rate >60 (60-); Glucose, Blood 78 mg/dL (70-99); Potassium, Blood 4.2 mmol/L (3.5-5.5); Sodium, Blood 140 mmol/L (136-145); Total Protein, Blood 7.1 g/dL (6.4-8.2); Troponin I <0.015 ng/mL (0.000-0.040)
[2020-01-15 14:09] LABS: ADENOVIRUS F 40/41 Not Detected (Not Detected); ASTROVIRUS Not Detected (Not Detected); C DIFFICILE TOXIN A/B Not Detected (Not Detected); CAMPYLOBACTER Not Detected (Not Detected); CRYPTOSPORIDIUM Not Detected (Not Detected); CYCLOSPORA CAYETANENSIS Not Detected (Not Detected); ENTAMOEBA HISTOLYTICA Not Detected (Not Detected); ENTEROAGGREGATIVE E COLI Not Detected (Not Detected); ENTEROPATHOGENIC E COLI Not Detected (Not Detected); ENTEROTOXIGENIC E COLI Not Detected (Not Detected); GIARDIA LAMBLIA Not Detected (Not Detected); NOROVIRUS GI/GII Not Detected (Not Detected); PLESIOMONAS SHIGELLOIDES Not Detected (Not Detected); ROTAVIRUS A Not Detected (Not Detected); SALMONELLA Not Detected (Not Detected); SAPOVIRUS Not Detected (Not Detected); SHIGA-TOXIN-PRODUCING E COLI Not Detected (Not Detected); SHIGELLA/ENTEROINVASIVE E COLI Not Detected (Not Detected); VIBRIO Not Detected (Not Detected); VIBRIO CHOLERAE Not Detected (Not Detected); YERSINIA ENTEROCOLITICA Not Detected (Not Detected)
== END 2020-01-14 02:56 | disposition home or self-care (01) ==
LOC: ER 21:42
PROVIDERS: Emergency Medicine
DX: R53.1 Weakness (principal); R55 Syncope and collapse; Z79.899 Other long term (current) drug therapy; Z79.52 Long term (current) use of systemic steroids; Z79.51 Long term (current) use of inhaled steroids; Z79.84 Long term (current) use of oral hypoglycemic drugs; Z88.8 Allergy status to other drugs, medicaments and biological substances
CPT/HCPCS: 0097U; 80053; 84484; 85025; 87493; 93005; 93010; 99284-25

== ENCOUNTER → 2020-01-21 | Outpatient (CLI) | payer MEDICARE ==
[2020-01-21 17:34] LABS: Magnesium, Blood 2.3 mg/dL (1.6-2.4)
[2020-01-21 17:40] LABS: Albumin, Blood 2.6 g/dL (3.4-5.0); Anion Gap 7 mmol/L (6-16); Blood Urea Nitrogen 29 mg/dL (8-24); CO2, Blood 27 mmol/L (21-32); Calcium, Blood 8.4 mg/dL (8.5-10.1); Chloride, Blood 104 mmol/L (98-108); Creatinine, Blood 0.76 mg/dL (0.60-1.20); Glomerular Filtration Rate >60 (60-); Glucose, Blood 230 mg/dL (70-99); Phosphorus, Blood 2.2 mg/dL (2.5-4.9); Potassium, Blood 3.8 mmol/L (3.5-5.5); Sodium, Blood 138 mmol/L (136-145)
== END | disposition home or self-care (01) ==
LOC: LAB 15:33 → LAB SHORT 15:33
PROVIDERS: Internal Medicine
DX: J69.0 Pneumonitis due to inhalation of food and vomit (principal); Z98.890 Other specified postprocedural states
CPT/HCPCS: 80069; 83735

== ENCOUNTER 2020-02-09 15:57 | Inpatient (IN) | payer MEDICARE ==
[~2020-02-09] VITALS: Ht 188 cm; Wt 69.4 kg
[~2020-02-09 15:57] MED LIST changes: -ATOR20 PO; -DOC250 PT; +DOCU LIQUI50 MG/5 ML PT; -GABA600 PT; +GABAPENTIN250 MG/51 PT; +MORP20L PT; -TORSE20 PO
[2020-02-09 16:54] LABS: BASOPHILS ABSOLUTE AUTO 0.05 K/mm3 (0.00-0.23); BASOPHILS PERCENT AUTO 0 % (0-2); EOSINOPHILS ABSOLUTE AUTO 0.11 K/mm3 (0.00-0.68); EOSINOPHILS PERCENT AUTO 1 % (0-6); Hematocrit 33.5 % (37.0-53.0); Hemoglobin 10.9 g/dL (13.5-17.5); IMMATURE GRAN ABSOLUTE AUTO 0.14 K/mm3 (0.00-0.10); IMMATURE GRAN PERCENT AUTO 1 % (0-1); LYMPHOCYTES ABSOLUTE AUTO 2.24 K/mm3 (0.84-5.20); LYMPHOCYTES PERCENT AUTO 12 % (21-46); MONOCYTES ABSOLUTE AUTO 2.03 K/mm3 (0.16-1.47); MONOCYTES PERCENT AUTO 11 % (4-13); Mean Corpuscular HGB 32.4 pg (26.0-34.0); Mean Corpuscular HGB Conc 32.5 g/dL (31.5-36.5); Mean Corpuscular Volume 100 fL (80-100); Mean Platelet Volume 11.4 fL (9.1-12.4); NEUTROPHILS ABSOLUTE AUTO 14.79 K/mm3 (1.96-9.15); NEUTROPHILS PERCENT AUTO 76 % (41-73); Platelet Count 200 K/mm3 (150-400); RDW Coefficient Variation 14.9 % (11.7-14.2); RDW Standard Deviation 54.5 fL (35.1-46.3); Red Blood Cell Count 3.36 M/mm3 (4.30-5.90); White Blood Cell Count 19.36 K/mm3 (4.00-11.30)
[2020-02-09 17:16] LABS: Alanine Aminotransfer (ALT/SGP 68 U/L (12-78); Albumin, Blood 3.1 g/dL (3.4-5.0); Albumin/Globulin Ratio 0.8 (0.8-1.8); Alk Phos 142 U/L (50-136); Anion Gap 9 mmol/L (6-16); Aspartate Aminotrans (AST/SGOT 78 U/L (12-37); Bilirubin, Total 0.6 mg/dL (0.1-1.0); Blood Urea Nitrogen 38 mg/dL (8-24); Bun/Creatinine Ratio 46.4 (12.0-20.0); CO2, Blood 25 mmol/L (21-32); Calcium, Blood 9.1 mg/dL (8.5-10.1); Chloride, Blood 106 mmol/L (98-108); Creatinine, Blood 0.82 mg/dL (0.60-1.20); Glomerular Filtration Rate >60 (60-); Glucose, Blood 145 mg/dL (70-99); Potassium, Blood 3.2 mmol/L (3.5-5.5); Sodium, Blood 140 mmol/L (136-145); Total Protein, Blood 7.1 g/dL (6.4-8.2)
[2020-02-09 18:57] LABS: Source, Urine Clean Catch
[2020-02-09 19:01] LABS: Appearance, Urine Hazy (Clear); Bilirubin, Urine Neg (Neg); Blood, Urine 1+ (Neg); Color, Urine Yellow (P-Yellow); Glucose Qualitative, Urine Neg (Neg); Ketones, Urine 1+ (Neg); Leukocyte Esterase, Urine 3+ (Neg); Nitrite, Urine Neg (Neg); Protein, Urine 1+ (Neg); Urobilinogen, Urine NORM (Normal)
[2020-02-09 19:17] LABS: Bacteria Many /hpf; Red Blood Cells, Urine 0-2 /hpf (0-2); Squamous Epithelial Cells Rare /hpf (Few); White Blood Cells, Urine 25-50 /hpf (0-5)
[2020-02-09] MEDS ORDERED: ZYRTEC10 M2 PO (23:19)
--- NOTE | 2020-02-10 04:03 | NUR ---
LATE ENTRY - ADMIT NOTE RECEIVED HANDOFF FROM ER NURSE KAI. PT TRANSFERED TO FLOOR VIA GURNEY. PERSONAL POSSESSIONS ARE WITH PT. PT ORIENTED TO UNIT. CALL BUTTON WITHIN REACH. IV FLUIDS INFUSING ORDERED. CALLED TO ANSWERING SERVICE FOR CONSULT.
[2020-02-10 04:49] LABS: Adenovirus F 40/41 Not Detected (NOT DETECT); Astrovirus Not Detected (NOT DETECT); Campylobacter Sp Not Detected (NOT DETECT); Cryptosporidium Not Detected (NOT DETECT); Cyclospora Cayetanensis Not Detected (NOT DETECT); E. Coli O157 Not Detected (NOT DETECT); Entamoeba Histolytica Not Detected (NOT DETECT); Enteroaggregative E. coli-EAEC Not Detected (NOT DETECT); Enteropathogenic E. coli-EPEC Not Detected (NOT DETECT); Enterotoxigenic E. coli-ETEC Not Detected (NOT DETECT); Giardia Lamblia Not Detected (NOT DETECT); Norovirus GI/GII Not Detected (NOT DETECT); Plesiomonas Shigelloides Not Detected (NOT DETECT); Rotavirus A Not Detected (NOT DETECT); Salmonella Sp Not Detected (NOT DETECT); Sapovirus Not Detected (NOT DETECT); Shiga Toxin-prod E. coli-STEC Not Detected (NOT DETECT); Shigella/Enteroin E. coli-EIEC Not Detected (NOT DETECT); Vibrio Cholerae Not Detected (NOT DETECT); Vibrio Sp Not Detected (NOT DETECT); Yersinia Enterocolitica Not Detected (NOT DETECT)
[2020-02-10 05:05] LABS: BASOPHILS ABSOLUTE AUTO 0.04 K/mm3 (0.00-0.23); BASOPHILS PERCENT AUTO 0 % (0-2); EOSINOPHILS ABSOLUTE AUTO 0.08 K/mm3 (0.00-0.68); EOSINOPHILS PERCENT AUTO 1 % (0-6); Hemoglobin 9.3 g/dL (13.5-17.5); IMMATURE GRAN ABSOLUTE AUTO 0.07 K/mm3 (0.00-0.10); IMMATURE GRAN PERCENT AUTO 1 % (0-1); LYMPHOCYTES ABSOLUTE AUTO 2.18 K/mm3 (0.84-5.20); LYMPHOCYTES PERCENT AUTO 15 % (21-46); MONOCYTES PERCENT AUTO 11 % (4-13); Mean Corpuscular HGB 32.1 pg (26.0-34.0); Mean Corpuscular HGB Conc 32.1 g/dL (31.5-36.5); Mean Corpuscular Volume 100 fL (80-100); Mean Platelet Volume 11.5 fL (9.1-12.4); NEUTROPHILS ABSOLUTE AUTO 10.31 K/mm3 (1.96-9.15); NEUTROPHILS PERCENT AUTO 73 % (41-73); Platelet Count 178 K/mm3 (150-400); RDW Standard Deviation 56.3 fL (35.1-46.3); White Blood Cell Count 14.18 K/mm3 (4.00-11.30)
[2020-02-10 05:28] LABS: Alanine Aminotransfer (ALT/SGP 56 U/L (12-78); Albumin, Blood 2.5 g/dL (3.4-5.0); Albumin/Globulin Ratio 0.7 (0.8-1.8); Alk Phos 117 U/L (50-136); Anion Gap 2 mmol/L (6-16); Aspartate Aminotrans (AST/SGOT 52 U/L (12-37); Bilirubin, Total 0.4 mg/dL (0.1-1.0); Blood Urea Nitrogen 30 mg/dL (8-24); Bun/Creatinine Ratio 45.9 (12.0-20.0); CO2, Blood 33 mmol/L (21-32); Calcium, Blood 8.8 mg/dL (8.5-10.1); Chloride, Blood 111 mmol/L (98-108); Creatinine, Blood 0.65 mg/dL (0.60-1.20); Globulin, Blood 3.4 g/dL (2.2-4.0); Glomerular Filtration Rate >60 (60-); Glucose, Blood 151 mg/dL (70-99); Potassium, Blood 3.5 mmol/L (3.5-5.5); Sodium, Blood 146 mmol/L (136-145); Total Protein, Blood 5.9 g/dL (6.4-8.2)
--- NOTE | 2020-02-10 15:02 | NUR ---
PATIENT AND WANTED TO KNOW IF PATIENT WOULD BE ABLE TO GO HOME AFTER J TUBE IS REPLACED. EDUCATED THEM THAT WE ARE AWAITING RESULTS OF URINE CULTURE TO KNOW WHAT ANTIBIOTICS TO SEND HIM HOME ON. SPOKE TO DR. BOATENG REGARDING CULTURE RESULTS; HE STATED NOT ENOUGH INFORMATION YET TO KNOW WHICH ABX TO PRESCRIBE, BUT HE WILL CHECK AGAIN IN TWO HOURS. RELAYED THIS INFORMATION TO PATIENT AND HIS .
--- NOTE | 2020-02-10 17:58 | NUR ---
SHIFT SUMMARY: NO ACUTE EVENTS. C/O CHRONIC LOW BACK PAIN; MEDICATED PER EMAR, BUT HAD TO GIVE ROXANOL VIA MM NO J TUBE IN PLACE, HAS GONZALEZ CATHETER IN [place]. ON O2 @ 3 L/MIN NC, WHICH IS HIS HOME DOSE. HAVING LOOSE BM'S. HAS BEEN NPO ALL DAY THIS AUTHOR DID NOT HAVE A TIME THAT J TUBE REPLACEMENT PROCEDURE WOULD TAKE PLACE. AT THE TIME OF THIS WRITING PROCEDURE HAD STILL NOT TAKEN PLACE. VISITED, WAS HOPING TO TAKE PATIENT HOME TODAY, BUT URINE CULTURE RESULTS ARE NOT COMPLETE.
[2020-02-10 18:01] LABS: Influenza A, PCR Negative (NEGATIVE); Influenza B, PCR Negative (NEGATIVE); Resp Syncytial Virus, PCR Negative (NEGATIVE); SARS-Cov-2 (COVID-19) PCR, MMC Negative (NEGATIVE)
[2020-02-11 05:48] LABS: BASOPHILS ABSOLUTE AUTO 0.03 K/mm3 (0.00-0.23); BASOPHILS PERCENT AUTO 0 % (0-2); EOSINOPHILS ABSOLUTE AUTO 0.04 K/mm3 (0.00-0.68); EOSINOPHILS PERCENT AUTO 1 % (0-6); Hematocrit 29.6 % (37.0-53.0); Hemoglobin 9.5 g/dL (13.5-17.5); IMMATURE GRAN ABSOLUTE AUTO 0.03 K/mm3 (0.00-0.10); IMMATURE GRAN PERCENT AUTO 0 % (0-1); LYMPHOCYTES ABSOLUTE AUTO 1.19 K/mm3 (0.84-5.20); LYMPHOCYTES PERCENT AUTO 16 % (21-46); MONOCYTES ABSOLUTE AUTO 0.75 K/mm3 (0.16-1.47); MONOCYTES PERCENT AUTO 10 % (4-13); Mean Corpuscular HGB 32.6 pg (26.0-34.0); Mean Corpuscular HGB Conc 32.1 g/dL (31.5-36.5); Mean Corpuscular Volume 102 fL (80-100); Mean Platelet Volume 11.5 fL (9.1-12.4); NEUTROPHILS PERCENT AUTO 73 % (41-73); Platelet Count 173 K/mm3 (150-400); RDW Coefficient Variation 15.2 % (11.7-14.2); RDW Standard Deviation 57.1 fL (35.1-46.3); Red Blood Cell Count 2.91 M/mm3 (4.30-5.90); White Blood Cell Count 7.54 K/mm3 (4.00-11.30)
--- NOTE | 2020-02-11 07:24 | NUR ---
LEAD PRESSMAN SUMMARY PT A&O, ABLE TO MAKE NEEDS KNOWN. PLEASANT AND COOPERATIVE TO CARE. PT MEDICATED FOR CHRONIC BACK PAIN PER EMAR. NEW GJ TUBE PLACED LAST NIGHT APPROX 2100. PATENT. PT HAD NO C/O ANY ABDOMINAL DISCOMFORT, NO GI ISSUES NOTED AFTER ADMINISTERING MEDS/FLUSHES. PT REFUSED NEPHRO AT APPROX 2200 PT REQUESTED TO HAVE IT THIS AM. NEPHRO 8 OZ GIVEN TO PT VIA GJ TUBE AT 0550. PT TOLERATED FEED AND FLUSHES WELL. PT ON 3LPM O2 VIA NC. PT CALM AND RESTED IN BED T/O SHIFT. BED AT LOWEST POSITION, CALL LIGHT WITHIN REACH.
[2020-02-11] MEDS ORDERED: POTA20LUD PT (11:10)
[2020-02-11] MEDS ORDERED: LEVFLO500 PT (11:10)
[2020-02-11] MEDS ORDERED: VISBIOME PROBIOTIC PT (11:10)
--- NOTE | 2020-02-11 13:43 | NUR ---
discharge PT IS A/O X4, PLEASANT AFFECT. IND IN ROOM. S/P NEW JTUBE PLACED BY DR VALDES YESTERDAY. INSERT SITE COVERED APOLLO You. TUBE PATENT. IRRIGATOR HEAD PLACE TUBE FEED ORDERS. PT TOLERATED 120ML @ 1000 FEED, STATE FULLNESS. AM MEDS GIVEN VIA TUBE. DR BOATENG IN TO SEE PT, STATE MAY GO HOME TODAY, PLACE ORDERS. LEVAQUIN GIVEN VIA TUBE. IV SITE D/C INTACT. PT DRESS IND, DECLINE 1400 TF, STATE WILL TAKE WHEN HE GETS HOME. WILL ON HER WAY HERE FOR TRANSPORTATION HOME.
== END 2020-02-11 14:11 | disposition home or self-care (01) | DRG 393 ==
LOC: ER 15:57 → MEDS 21:54
PROVIDERS: Family Medicine; Physician Assistant; Radiology Diagnostic Radiology; ADMIT Internal Medicine
PROC: 0DH63UZ Insertion of Feeding Device into Stomach, Percutaneous Approach (ICD-10-PCS; principal; 2020-02-10)
DX: K94.23 Gastrostomy malfunction (principal); A41.9 Sepsis, unspecified organism; J69.0 Pneumonitis due to inhalation of food and vomit; R65.20 Severe sepsis without septic shock; N39.0 Urinary tract infection, site not specified; I50.42 Chronic combined systolic (congestive) and diastolic (congestive) heart failure; F11.20 Opioid dependence, uncomplicated; J84.9 Interstitial pulmonary disease, unspecified; Z20.828 Contact with and (suspected) exposure to other viral communicable diseases; I11.0 Hypertensive heart disease with heart failure; G89.4 Chronic pain syndrome; E78.5 Hyperlipidemia, unspecified; I25.10 Atherosclerotic heart disease of native coronary artery without angina pectoris; F32.9 Major depressive disorder, single episode, unspecified; Z87.891 Personal history of nicotine dependence; I73.9 Peripheral vascular disease, unspecified; J44.9 Chronic obstructive pulmonary disease, unspecified; K21.9 Gastro-esophageal reflux disease without esophagitis; Z99.81 Dependence on supplemental oxygen; F41.9 Anxiety disorder, unspecified; B96.89 Other specified bacterial agents as the cause of diseases classified elsewhere; N40.1 Benign prostatic hyperplasia with lower urinary tract symptoms; I25.2 Old myocardial infarction; M51.36 Other intervertebral disc degeneration, lumbar region
CPT/HCPCS: 0097U; 0241U; 36415; 43762; 49452; 49465; 51701; 71045; 80053; 81001; 83605; 85025; 87077; 87086; 87186; 94640; 94760; 96365-59; 99152; 99153; 99285-25; A9270-GY; C1729; C1769; C1887; J1650; J2060; J2185; J2250; J3010; J7040; J7050; J7120; J7512; Q9967

== ENCOUNTER → 2020-03-09 | Outpatient (CLI) | payer MEDICARE ==
[~2020-03-09] MED LIST changes: +ACET500 PO; +AVYCAZ 2.5 GRA2.5 GM IV; +AZIT200SU PT; +Flonase 0.05% N16 GM; +Inderal40 MG PO; +LEVFLO500 PT; -MORP20L PT; +MUPIROCIN1 G1 TOP; +PAROEX473 ML MM; +POTA20LUD PT; +TAZICEF2 G2 IV; +TOBRAMYCIN INH; +VISBIOME 112.51 EACH PT; +ZYRTEC10 M2 PT
[2020-03-09 11:49] LABS: Source, Urine Clean Catch
[2020-03-09 12:27] LABS: Appearance, Urine Clear (Clear); Bilirubin, Urine Neg (Neg); Blood, Urine Neg (Neg); Color, Urine Yellow (P-Yellow); Glucose Qualitative, Urine Neg (Neg); Ketones, Urine Neg (Neg); Leukocyte Esterase, Urine 1+ (Neg); Nitrite, Urine Neg (Neg); Protein, Urine Neg (Neg); Urobilinogen, Urine 1+ (Normal)
[2020-03-09 13:11] LABS: Red Blood Cells, Urine 0-2 /hpf (0-2)
[2020-03-09 13:12] LABS: Bacteria Few /hpf; Squamous Epithelial Cells Few /hpf (Few)
== END | disposition home or self-care (01) ==
LOC: LAB SRC 11:48
PROVIDERS: Internal Medicine
DX: N39.0 Urinary tract infection, site not specified (principal); J69.0 Pneumonitis due to inhalation of food and vomit; R63.6 Underweight; Z98.890 Other specified postprocedural states
CPT/HCPCS: 81001; 87070; 87077; 87086; 87186; 87205

== ENCOUNTER 2020-03-16 00:18 | Day surgery (SDC) | payer MEDICARE ==
[~2020-03-16 00:18] MED LIST changes: -ACET500 PO; -AVYCAZ 2.5 GRA2.5 GM IV; -AZIT200SU PT; -Flonase 0.05% N16 GM; -Inderal40 MG PO; -MUPIROCIN1 G1 TOP; -PAROEX473 ML MM; -TAZICEF2 G2 IV; -TOBRAMYCIN INH; -VISBIOME 112.51 EACH PT
[2020-03-16] MEDS ORDERED: ACET500 PO (18:11)
[2020-03-16] MEDS ORDERED: PAROEX473 ML MM (18:13)
[2020-03-16] MEDS ORDERED: PRED5 PO (18:15)
[2020-03-16] MEDS ORDERED: MUPIROCIN1 G1 TOP (18:16)
[2020-03-16] MEDS ORDERED: POTA20LUD PO (18:17)
[2020-03-16] MEDS ORDERED: Flonase 0.05% N16 GM (18:19)
[2020-03-16] MEDS ORDERED: Inderal40 MG PO (18:21)
== END 2020-03-16 15:50 | disposition home or self-care (01) ==
LOC: ATC 00:18
DX: J69.0 Pneumonitis due to inhalation of food and vomit (principal); R63.6 Underweight; Z98.890 Other specified postprocedural states; Z79.899 Other long term (current) drug therapy; Z79.82 Long term (current) use of aspirin
CPT/HCPCS: 36569; 96365; 96374; C1751; J0713

== ENCOUNTER 2020-03-16 23:59 | Emergency (ER) | payer MEDICARE ==
[~2020-03-16] VITALS: Ht 188 cm; Wt 70.3 kg
[~2020-03-16 23:59] MED LIST changes: +ACET500 PO; +Flonase 0.05% N16 GM; +Inderal40 MG PO; +MUPIROCIN1 G1 TOP; +PAROEX473 ML MM
== END 2020-03-17 02:52 | disposition home or self-care (01) ==
LOC: ER 23:59
DX: Z76.89 Persons encountering health services in other specified circumstances (principal); J44.9 Chronic obstructive pulmonary disease, unspecified; Z79.82 Long term (current) use of aspirin; Z88.5 Allergy status to narcotic agent; Z79.899 Other long term (current) drug therapy; Z79.51 Long term (current) use of inhaled steroids; Z88.3 Allergy status to other anti-infective agents; Z87.891 Personal history of nicotine dependence
CPT/HCPCS: 96374; J0713

== ENCOUNTER 2020-03-17 08:15 | Day surgery (SDC) | payer MEDICARE | END 2020-03-17 16:46 | disposition home or self-care (01) | LOC: ATC 08:15 | DX: J69.0 Pneumonitis due to inhalation of food and vomit (principal); R63.6 Underweight; I11.0 Hypertensive heart disease with heart failure; I50.30 Unspecified diastolic (congestive) heart failure; N40.1 Benign prostatic hyperplasia with lower urinary tract symptoms; R33.8 Other retention of urine; N13.8 Other obstructive and reflux uropathy; J44.9 Chronic obstructive pulmonary disease, unspecified; E78.5 Hyperlipidemia, unspecified; R39.198 Other difficulties with micturition; F41.1 Generalized anxiety disorder; F32.9 Major depressive disorder, single episode, unspecified; H91.90 Unspecified hearing loss, unspecified ear; Z98.890 Other specified postprocedural states; Z79.82 Long term (current) use of aspirin; Z88.8 Allergy status to other drugs, medicaments and biological substances; Z87.891 Personal history of nicotine dependence; Z68.20 Body mass index [BMI] 20.0-20.9, adult | CPT/HCPCS: 96365; 96374; J0713 ==

== ENCOUNTER 2020-03-18 00:07 | Emergency (ER) | payer MEDICARE ==
[~2020-03-18] VITALS: Ht 188 cm; Wt 70.3 kg
== END 2020-03-18 01:25 | disposition home or self-care (01) ==
LOC: ER 00:07
DX: J18.9 Pneumonia, unspecified organism (principal); J44.0 Chronic obstructive pulmonary disease with (acute) lower respiratory infection; Z76.89 Persons encountering health services in other specified circumstances; Z79.899 Other long term (current) drug therapy; Z79.82 Long term (current) use of aspirin; Z79.52 Long term (current) use of systemic steroids; Z88.5 Allergy status to narcotic agent; Z88.8 Allergy status to other drugs, medicaments and biological substances; Z87.891 Personal history of nicotine dependence
CPT/HCPCS: 96365; 99281-25; J0713

== ENCOUNTER 2020-03-18 00:19 | Day surgery (SDC) | payer MEDICARE | END 2020-03-18 09:00 | disposition home or self-care (01) | LOC: ATC 00:19 | DX: J69.0 Pneumonitis due to inhalation of food and vomit (principal); R63.6 Underweight; I11.0 Hypertensive heart disease with heart failure; I50.30 Unspecified diastolic (congestive) heart failure; J44.9 Chronic obstructive pulmonary disease, unspecified; Z98.890 Other specified postprocedural states; H91.90 Unspecified hearing loss, unspecified ear; N40.1 Benign prostatic hyperplasia with lower urinary tract symptoms; N13.8 Other obstructive and reflux uropathy; R33.8 Other retention of urine; R39.12 Poor urinary stream; K21.9 Gastro-esophageal reflux disease without esophagitis; E78.5 Hyperlipidemia, unspecified; Z79.82 Long term (current) use of aspirin; Z79.899 Other long term (current) drug therapy; Z68.20 Body mass index [BMI] 20.0-20.9, adult; Z87.891 Personal history of nicotine dependence | CPT/HCPCS: 96365; J0713 ==

== ENCOUNTER 2020-04-01 05:29 | Inpatient (IN) | payer MEDICARE ==
[~2020-04-01] VITALS: Ht 188 cm; Wt 67.5 kg
[2020-04-01 06:02] LABS: BASOPHILS ABSOLUTE AUTO 0.05 K/mm3 (0.00-0.23); BASOPHILS PERCENT AUTO 0 % (0-2); EOSINOPHILS ABSOLUTE AUTO 0.36 K/mm3 (0.00-0.68); EOSINOPHILS PERCENT AUTO 3 % (0-6); Hematocrit 32.4 % (37.0-53.0); Hemoglobin 10.4 g/dL (13.5-17.5); IMMATURE GRAN ABSOLUTE AUTO 0.05 K/mm3 (0.00-0.10); IMMATURE GRAN PERCENT AUTO 0 % (0-1); LYMPHOCYTES ABSOLUTE AUTO 1.87 K/mm3 (0.84-5.20); LYMPHOCYTES PERCENT AUTO 17 % (21-46); MONOCYTES ABSOLUTE AUTO 1.39 K/mm3 (0.16-1.47); MONOCYTES PERCENT AUTO 13 % (4-13); Mean Corpuscular HGB 32.2 pg (26.0-34.0); Mean Corpuscular HGB Conc 32.1 g/dL (31.5-36.5); Mean Corpuscular Volume 100 fL (80-100); Mean Platelet Volume 11.9 fL (9.1-12.4); NEUTROPHILS PERCENT AUTO 67 % (41-73); Platelet Count 206 K/mm3 (150-400); RDW Coefficient Variation 14.5 % (11.7-14.2); RDW Standard Deviation 53.8 fL (35.1-46.3); Red Blood Cell Count 3.23 M/mm3 (4.30-5.90); White Blood Cell Count 11.12 K/mm3 (4.00-11.30)
[2020-04-01 06:15] LABS: Alanine Aminotransfer (ALT/SGP 112 U/L (12-78); Albumin, Blood 2.6 g/dL (3.4-5.0); Albumin/Globulin Ratio 0.6 (0.8-1.8); Alk Phos 240 U/L (50-136); Anion Gap 4 mmol/L (6-16); Aspartate Aminotrans (AST/SGOT 107 U/L (12-37); Bilirubin, Total 0.3 mg/dL (0.1-1.0); Blood Urea Nitrogen 40 mg/dL (8-24); Bun/Creatinine Ratio 54.7 (12.0-20.0); CO2, Blood 32 mmol/L (21-32); Calcium, Blood 8.8 mg/dL (8.5-10.1); Chloride, Blood 104 mmol/L (98-108); Creatinine, Blood 0.73 mg/dL (0.60-1.20); Globulin, Blood 4.5 g/dL (2.2-4.0); Glomerular Filtration Rate >60 (60-); Glucose, Blood 116 mg/dL (70-99); Potassium, Blood 4.4 mmol/L (3.5-5.5); Sodium, Blood 140 mmol/L (136-145); Total Protein, Blood 7.1 g/dL (6.4-8.2); Troponin I <0.015 ng/mL (0.000-0.040)
[2020-04-01 08:35] LABS: Source, Urine Clean Catch
[2020-04-01 08:38] LABS: Bilirubin, Urine Neg (Neg); Blood, Urine Neg (Neg); Glucose Qualitative, Urine Neg (Neg); Ketones, Urine Neg (Neg); Leukocyte Esterase, Urine 1+ (Neg); Nitrite, Urine Neg (Neg); Protein, Urine Neg (Neg); Urobilinogen, Urine NORM (Normal)
[2020-04-01 08:53] LABS: Appearance, Urine Hazy (Clear); Bacteria Rare /hpf; Color, Urine Yellow (P-Yellow); Red Blood Cells, Urine Not Seen /hpf (0-2); Squamous Epithelial Cells Rare /hpf (Few)
--- NOTE | 2020-04-01 19:52 | NUR ---
SHIFT SUMMARY: ASSUMED CARE OF PATIENT UPON HIS ARRIVAL FROM ED AT 1436. ABLE TO TRANSFER SELF WITH MINIMAL ASSIST. A&O X 3, APPEARS WITHDRAWN. C/O CHRONIC BACK PAIN, IS WEARING FENTANYL PATCH PLACED YESTERDAY, MEDICATED WITH ROXANOL WITH LITTLE EFFECT. PICC DRESSING CHANGED, HAS BRISK BLOOD RETURN. WAS TO START BOLUS TF, BUT FORMULA ARRIVED TOO LATE (1800) FOR 1500 FEEDING. WAS ON O2 @ 5 L/MIN NC ON ARRIVAL, BUT RESP THERAPY ABLE TO TITRATE DOWN TO 3 L/MIN. LUNG SOUNDS ARE COARSE WITH EXP WHEEZES. TOLERATING IV ABX.
--- NOTE | 2020-04-02 04:13 | NUR ---
SEAM FELLER SUMMARY PT A&OX4, ABLE TO MAKE NEEDS KNOWN. PLEASANT AND COOPERATIVE TO CARE. NO C/O PAIN OR ANY DISCOMFORT THIS SHIFT. NO C/O CP OR N&V. PT ON 3LPM O2 VIA NC, SATS >92%, SOB NOTED WITH EXERTION, EXP WHEEZE NOTED ON BASES. PT HAS A J TUBE THAT IS PATENT, FLUSHES WELL, PT TOLERATING SCHEDULED BOLUS FEEDS. NO C/O ANY ABD DISCOMFORT. PT CALM AND RESTED IN BED T/O SHIFT. SBA TO BSC. BED AT LOWEST POSITION. CALL LIGHT WITHIN REACH.
[2020-04-02 06:10] LABS: BASOPHILS ABSOLUTE AUTO 0.01 K/mm3 (0.00-0.23); BASOPHILS PERCENT AUTO 0 % (0-2); EOSINOPHILS PERCENT AUTO 0 % (0-6); Hematocrit 28.7 % (37.0-53.0); Hemoglobin 9.3 g/dL (13.5-17.5); IMMATURE GRAN ABSOLUTE AUTO 0.03 K/mm3 (0.00-0.10); IMMATURE GRAN PERCENT AUTO 0 % (0-1); LYMPHOCYTES PERCENT AUTO 12 % (21-46); MONOCYTES ABSOLUTE AUTO 1.23 K/mm3 (0.16-1.47); MONOCYTES PERCENT AUTO 14 % (4-13); Mean Corpuscular HGB 31.7 pg (26.0-34.0); Mean Corpuscular HGB Conc 32.4 g/dL (31.5-36.5); Mean Corpuscular Volume 98 fL (80-100); Mean Platelet Volume 11.4 fL (9.1-12.4); NEUTROPHILS ABSOLUTE AUTO 6.68 K/mm3 (1.96-9.15); NEUTROPHILS PERCENT AUTO 74 % (41-73); Platelet Count 190 K/mm3 (150-400); RDW Coefficient Variation 14.2 % (11.7-14.2); RDW Standard Deviation 50.6 fL (35.1-46.3); Red Blood Cell Count 2.93 M/mm3 (4.30-5.90); White Blood Cell Count 9.05 K/mm3 (4.00-11.30)
[2020-04-02 06:39] LABS: Alanine Aminotransfer (ALT/SGP 190 U/L (12-78); Albumin, Blood 2.3 g/dL (3.4-5.0); Albumin/Globulin Ratio 0.5 (0.8-1.8); Alk Phos 275 U/L (50-136); Anion Gap 5 mmol/L (6-16); Aspartate Aminotrans (AST/SGOT 186 U/L (12-37); Bilirubin, Total 0.3 mg/dL (0.1-1.0); Blood Urea Nitrogen 41 mg/dL (8-24); Bun/Creatinine Ratio 63.7 (12.0-20.0); CO2, Blood 29 mmol/L (21-32); Calcium, Blood 8.8 mg/dL (8.5-10.1); Chloride, Blood 110 mmol/L (98-108); Creatinine, Blood 0.64 mg/dL (0.60-1.20); Globulin, Blood 4.4 g/dL (2.2-4.0); Glomerular Filtration Rate >60 (60-); Glucose, Blood 285 mg/dL (70-99); Magnesium, Blood 2.4 mg/dL (1.6-2.4); Phosphorus, Blood 2.3 mg/dL (2.5-4.9); Potassium, Blood 4.5 mmol/L (3.5-5.5); Sodium, Blood 144 mmol/L (136-145); Total Protein, Blood 6.7 g/dL (6.4-8.2)
--- NOTE | 2020-04-02 09:00 | NUR ---
PT PLEASANT COOP A/O X3. STATES SOME PAIN IN LOW BACK. ALWAYS AT 7-8. MED PER EMAR. PEG J TUBE IN ABD. CDI. WRAPPED WITH GUAZE. PT STATES HAD FOR OVER A YEAR. H/R REG, NO MURMER NOTED . NO TELE. LUNGS CLEAR UPPER AND MID WITH LIGHT CRCKLES BASES. RESP EASY, UNLABORED. ON R.A. BT X4. LAST BM YEST. VOIDS PER BSC. SBA TO BSC. BED IN LOW POSITION, CALL LITE IN REACH, CALLS APPROP
--- NOTE | 2020-04-02 13:48 | NUR ---
1000 DR HERRERA IN TO SEE PT. OKAYED TO CHANGE ASA EC TO CHEWABLE ASA
--- NOTE | 2020-04-02 17:26 | NUR ---
1500 PT REQUEST ONLY 1 CAN FOR DINNER.
--- NOTE | 2020-04-02 19:13 | NUR ---
PT QUITE PLEASANT TODAY. DID ASK FOR SELF CATH KIT WHICH WAS MADE AVAIL. PT VOIDED 650 CC. NO C/O PAIN TODAY. IN TO SEE TODAY. PT REQUEST ONLY 1 CAN FOR AFTERNOON MEAL. DONE. REQUESTING CREON WITH PM FEED. HOLDING. NO NEW CONCERNS TODAY. BED IN LOW POSITION, CALL LITE IN REACH, CALLS APPROP
--- NOTE | 2020-04-03 05:44 | NUR ---
SHIFT SUMMARY NO ACUTE CHANGES THIS SHIFT, MEDICATED FOR BACK PAIN X2, NO OTHER C/O ANY KIND, SLEPT T/O THE NIGHT, CALL LIGHT IN REACH, WILL CONT TO MONITOR UNTIL REPORT GIVEN TO DAY RN.
[2020-04-03] MEDS ORDERED: AZIT200SU PT (15:15)
[2020-04-03] MEDS ORDERED: VISBIOME 112.51 EACH PT (15:15)
[2020-04-03] MEDS ORDERED: TAZICEF2 G2 IV (15:18)
--- NOTE | 2020-04-03 16:24 | NUR ---
DISCHARGE NOTE PT A&O AND ABLE TO MAKE NEEDS KNOWN. PT TOOK FEEDING AND MEDICATION THROUGH J-TUBE AND TOLLERATED IT WELL. PT DENIED P/N/V WHILE ON THE UNIT. TOOK OUT PT IV BEFORE DISCHARGE. PICC LINE REMAINED IN PLACE SO PT COULD CONTINUE HOME IV MEDICAITONS. WHEN OVER DC PACKET WITH PT AND . PT TAKEN OFF THE FLOOR BY THIS RN WITH OXYGEN TANK. PT TRANSFERED TO HIS CAR WHERE HIS HAD THEIR HOME OXYGEN TANK READY. PT DISCHARGED AT 1610
== END 2020-04-03 16:10 | disposition home or self-care (01) | DRG 871 ==
LOC: ER 05:29 → MEDS 09:05 → ERHOLD 09:05 → MEDS 14:30
PROVIDERS: Emergency Medicine; Nurse Practitioner Acute Care; ADMIT Internal Medicine
DX: A41.9 Sepsis, unspecified organism (principal); J69.0 Pneumonitis due to inhalation of food and vomit; J96.21 Acute and chronic respiratory failure with hypoxia; K86.1 Other chronic pancreatitis; F11.20 Opioid dependence, uncomplicated; I50.42 Chronic combined systolic (congestive) and diastolic (congestive) heart failure; I25.10 Atherosclerotic heart disease of native coronary artery without angina pectoris; J44.9 Chronic obstructive pulmonary disease, unspecified; D50.9 Iron deficiency anemia, unspecified; M51.36 Other intervertebral disc degeneration, lumbar region; R13.12 Dysphagia, oropharyngeal phase; Z20.822 Contact with and (suspected) exposure to COVID-19; E83.39 Other disorders of phosphorus metabolism; Z99.81 Dependence on supplemental oxygen; Z93.4 Other artificial openings of gastrointestinal tract status; I25.2 Old myocardial infarction; I11.0 Hypertensive heart disease with heart failure; F41.9 Anxiety disorder, unspecified; F32.9 Major depressive disorder, single episode, unspecified; E78.5 Hyperlipidemia, unspecified; K21.9 Gastro-esophageal reflux disease without esophagitis; N40.1 Benign prostatic hyperplasia with lower urinary tract symptoms; I73.9 Peripheral vascular disease, unspecified
CPT/HCPCS: 36415; 71045; 80053; 81001; 83605; 83735; 83880; 84100; 84145; 84484; 85025; 87040; 87070; 87077; 87086; 87186; 87205; 93005; 93010; 94640; 94760; 96365; 96367; 96372-59; 96375; 99285-25; A9270; J0713; J1650; J2543; J2930; J7050; J7060; J7512

== ENCOUNTER 2020-04-14 19:06 | Inpatient (IN) | payer MEDICARE ==
[~2020-04-14] VITALS: Ht 188 cm; Wt 72.1 kg
[~2020-04-14 19:06] MED LIST changes: +AZIT200SU PT; +TAZICEF2 G2 IV; +VISBIOME 112.51 EACH PT
[2020-04-14 19:39] LABS: BASOPHILS ABSOLUTE AUTO 0.06 K/mm3 (0.00-0.23); BASOPHILS PERCENT AUTO 0 % (0-2); EOSINOPHILS ABSOLUTE AUTO 0.62 K/mm3 (0.00-0.68); EOSINOPHILS PERCENT AUTO 4 % (0-6); Hematocrit 29.5 % (37.0-53.0); Hemoglobin 9.5 g/dL (13.5-17.5); IMMATURE GRAN ABSOLUTE AUTO 0.05 K/mm3 (0.00-0.10); IMMATURE GRAN PERCENT AUTO 0 % (0-1); LYMPHOCYTES ABSOLUTE AUTO 2.06 K/mm3 (0.84-5.20); LYMPHOCYTES PERCENT AUTO 13 % (21-46); MONOCYTES ABSOLUTE AUTO 1.41 K/mm3 (0.16-1.47); MONOCYTES PERCENT AUTO 9 % (4-13); Mean Corpuscular HGB 31.6 pg (26.0-34.0); Mean Corpuscular HGB Conc 32.2 g/dL (31.5-36.5); Mean Corpuscular Volume 98 fL (80-100); Mean Platelet Volume 10.7 fL (9.1-12.4); NEUTROPHILS ABSOLUTE AUTO 11.13 K/mm3 (1.96-9.15); NEUTROPHILS PERCENT AUTO 73 % (41-73); Platelet Count 322 K/mm3 (150-400); RDW Coefficient Variation 14.4 % (11.7-14.2); RDW Standard Deviation 51.7 fL (35.1-46.3); Red Blood Cell Count 3.01 M/mm3 (4.30-5.90); White Blood Cell Count 15.33 K/mm3 (4.00-11.30)
[2020-04-14 19:56] LABS: Anion Gap 2 mmol/L (6-16); Blood Urea Nitrogen 38 mg/dL (8-24); Bun/Creatinine Ratio 56.6 (12.0-20.0); CO2, Blood 29 mmol/L (21-32); Calcium, Blood 8.7 mg/dL (8.5-10.1); Chloride, Blood 108 mmol/L (98-108); Creatinine, Blood 0.67 mg/dL (0.60-1.20); Glomerular Filtration Rate >60 (60-); Glucose, Blood 113 mg/dL (70-99); Potassium, Blood 4.6 mmol/L (3.5-5.5); Sodium, Blood 139 mmol/L (136-145)
[2020-04-14 22:14] LABS: Source, Urine Catheter
[2020-04-14 22:17] LABS: Appearance, Urine Clear (Clear); Bilirubin, Urine Neg (Neg); Blood, Urine Neg (Neg); Color, Urine Yellow (P-Yellow); Glucose Qualitative, Urine Neg (Neg); Ketones, Urine Neg (Neg); Leukocyte Esterase, Urine 1+ (Neg); Nitrite, Urine Neg (Neg); Protein, Urine Neg (Neg); Urobilinogen, Urine NORM (Normal)
[2020-04-14 22:31] LABS: Bacteria Not Seen /hpf; Red Blood Cells, Urine Not Seen /hpf (0-2); Squamous Epithelial Cells Few /hpf (Few); White Blood Cells, Urine 0-2 /hpf (0-5)
[2020-04-15 04:45] LABS: Anion Gap 3 mmol/L (6-16); Blood Urea Nitrogen 35 mg/dL (8-24); Bun/Creatinine Ratio 53.4 (12.0-20.0); CO2, Blood 30 mmol/L (21-32); Calcium, Blood 8.5 mg/dL (8.5-10.1); Chloride, Blood 109 mmol/L (98-108); Creatinine, Blood 0.66 mg/dL (0.60-1.20); Glomerular Filtration Rate >60 (60-); Glucose, Blood 108 mg/dL (70-99); Potassium, Blood 4.7 mmol/L (3.5-5.5); Sodium, Blood 142 mmol/L (136-145)
[2020-04-15 06:10] LABS: BASOPHILS ABSOLUTE AUTO 0.05 K/mm3 (0.00-0.23); BASOPHILS PERCENT AUTO 0 % (0-2); EOSINOPHILS ABSOLUTE AUTO 0.36 K/mm3 (0.00-0.68); EOSINOPHILS PERCENT AUTO 3 % (0-6); Hematocrit 26.6 % (37.0-53.0); Hemoglobin 8.7 g/dL (13.5-17.5); IMMATURE GRAN ABSOLUTE AUTO 0.04 K/mm3 (0.00-0.10); IMMATURE GRAN PERCENT AUTO 0 % (0-1); LYMPHOCYTES ABSOLUTE AUTO 2.09 K/mm3 (0.84-5.20); LYMPHOCYTES PERCENT AUTO 15 % (21-46); MONOCYTES ABSOLUTE AUTO 1.36 K/mm3 (0.16-1.47); MONOCYTES PERCENT AUTO 10 % (4-13); Mean Corpuscular HGB 32.1 pg (26.0-34.0); Mean Corpuscular HGB Conc 32.7 g/dL (31.5-36.5); Mean Corpuscular Volume 98 fL (80-100); Mean Platelet Volume 10.7 fL (9.1-12.4); NEUTROPHILS ABSOLUTE AUTO 9.67 K/mm3 (1.96-9.15); NEUTROPHILS PERCENT AUTO 71 % (41-73); Platelet Count 308 K/mm3 (150-400); RDW Coefficient Variation 14.6 % (11.7-14.2); RDW Standard Deviation 51.6 fL (35.1-46.3); Red Blood Cell Count 2.71 M/mm3 (4.30-5.90); White Blood Cell Count 13.57 K/mm3 (4.00-11.30)
[2020-04-15 06:19] LABS: Adenovirus Not Detected (NOT DETECT); Bordetella pertussis Not Detected (NOT DETECT); Chlamydophila pneumoniae Not Detected (NOT DETECT); Coronavirus 229E Not Detected (NOT DETECT); Coronavirus HKU1 Not Detected (NOT DETECT); Coronavirus NL63 Not Detected (NOT DETECT); Coronavirus OC43 Not Detected (NOT DETECT); Human Metapneumovirus Not Detected (NOT DETECT); Human Rhinovirus/Enterovirus Not Detected (NOT DETECT); Influenza A/2009-H1 Not Detected (NOT DETECT); Influenza A/H1 Not Detected (NOT DETECT); Influenza A/H3 Not Detected (NOT DETECT); Influenza B Not Detected (NOT DETECT); Mycoplasma pneumoniae Not Detected (NOT DETECT); Parainfluenza Virus 1 Not Detected (NOT DETECT); Parainfluenza Virus 2 Not Detected (NOT DETECT); Parainfluenza Virus 3 Not Detected (NOT DETECT); Parainfluenza Virus 4 Not Detected (NOT DETECT); Respiratory Syncytial Virus Not Detected (NOT DETECT); SARS-Cov-2 (COVID-19), BioFire Not Detected (NOT DETECT)
--- NOTE | 2020-04-15 06:31 | NUR ---
ASSUMED PT CARE/END OF SHIFT SUMMARY PT ARRIVED ON UNIT FROM ED AT 0105. PT ALERT AND ORIENTED AND ABLE TO MAKE NEEDS KNOWN. STATES HIS BASELINE IS 4L OF OXYGEN CONTINUOUSLY; PT AT 5L UPON ARRIVAL. PT APPEARED VERY SOB AND LETHARGIC AFTER TRANSFERRING FROM RNEY TO BED. VERY LABORED AND USE OF ACCESSORY MUSCLES NOTED. PT MOVED NC FROM NARES TO MOUTH. LUNG SOUNDS ARE VERY COARSE RHONCHI T/O. OCCASIONAL COUGHING NOTED; HOWEVER, HAVE NOT ASSESSED SPUTUM D/T PT SWALLOWING. NSR WITH HR 80'S; BP'S STABLE, SEE FLOWSHEET. ABDOMEN IS ROUND AND DISTENDED, FIRM WITH HYPOACTIVE TONES. PEG TUBE NOTED TO ABDOMEN. PT STATES HE IS NPO D/T ASPIRATION RISK AND RECEIVES TUBE FEEDINGS AT HOME. ORAL CARES OFFERED PT HAS VERY DRY MUCOSA WITH CASTS NOTED; HOWEVER, PT STATES HE USES A SPECIAL MOUTH WASH. THEREFORE, TIFFANIE BENNETT WAS CALLED D/T FOR HOME MEDS IN WHICH WERE RECONCILED DURING DOWNTIME WITH PHARMACY. PT REQUESTED SOMETHING FOR ANXIETY AND PAIN. STATES HIS PAIN WAS A 7/10 TO HIS LEFT UPPER CHEST, STATED IT WAS A "CRAMPING" PAIN THAT WASN'T RADIATING ANYWHERE ELSE. OVERALL SKIN IS INTACT; HOWEVER, BRUISING NOTED TO RIGHT FOOT AND AN OLD DISCOLORED ABRASION TO LEFT HAND, NEAR THUMB. +1 PITTING EDEMA TO BILATERAL FEET/ANKLES. PT STATES HE SELF CATHS TWICE DAILY AT HOME D/T URETHRAL STRICTURES AND URINARY RETENTION; HOWEVER, PT TRANSFERRED WITH STANDBY ASSIST TO [facility] WHERE HE VOIDED APPROXIMATELY 250CC OF URINE WITH A SMALL, HARD BM. CALL LIGHT IS WITHIN REACH AND PT IS ABLE TO MAKE HIS NEEDS KNOWN. WILL CONTINUE TO MONITOR UNTIL REPORT IS HANDED OFF TO ONCOMING NURSE.
[2020-04-15 09:50] LABS: pH Blood Arterial 7.41 (7.35-7.45)
[2020-04-15 09:51] LABS: PCO2 Arterial 43.1 mmHg (35-45); PO2 Arterial 74.8 mmHg (80-100)
--- NOTE | 2020-04-15 18:05 | NUR ---
SHIFT SUMMARY PT IS ALERT AND ORIENTEDx4, CALM AND COOPERATIVE. PT IS ON HOME O2 AT 4L VIA VIA NC AND REPORTS HIS BREATHING IS MUCH IMPROVED. SPO2 HAS BEEN >92%. PT ABLE TO AMBULATE TO [facility] WITH NO DYSPNEA. VITALS HAVE BEEN STABLE. DR AWAN WAS ABLE TO EVAL PT TODAY AND ORDERS RECEIVED. INSTRUCTED PT ON NEED FOR SPUTUM CULTURE. PT STATED UNDERSTANDING, SPECIMAN CUP READY AT BEDSIDE. PT HAS HAD 3 SOFT BM'S TODAY AND REQUIRED TO BE STRAIGHT CATHx2 PER WHAT PT DOES AT HOME. BOLUS TUBE FEEDS STARTED TODAY AND PT HAS TOLERATED WELL. PT STATUS CHANGED TO MEDICAL WITHOUT TELE TODAY.
--- NOTE | 2020-04-15 22:47 | NUR ---
TRANSFER TO MEDICAL FLOOR @ 2215 PT AXO, NOT ON TELE ON 4LNC BREATHING EASILY WITH EQUAL CHEST RISE. LUNG SOUNDS COARSE WITH RHONCHI BUT W/OUT DISTRESS. PEG TUBE FLUSHED EASILY FOR MEDS, IRRIGATED. PICC SECURED IN PLACE AND FLUSHES EASILY. PT IN DROPLET ISOLATION. REPORT GIVEN TO GERRY HERRERA. ALL BELONGINGS SENT WITH PT TO MEDICAL FLOOR. MASK ON PT.
--- NOTE | 2020-04-16 05:53 | NUR ---
SUMMARY PT ARRIVED TO FLOOR IN NO DISTRESS. PT HAS BEEN MEDICATED FOR PAIN PER EMAR. PT DENIES INCREASED SOB. PT WEARS HIS NC IN HIS MOUTH. PT HAD HIS 0300 BOLUS FEED AND 0500 FLUID. MINIMAL RESIDUAL NOTED. PT HAS SLEPT WELL DURING SHIFT.
--- NOTE | 2020-04-16 19:19 | NUR ---
PT RESTING IN BED WITH KANGAROO RUNNING AT 90 ML/H AND WNL. PT REMAINS ALERT AND ORIENTED X4 AND MAKES NO COMPLAINTS AT THIS TIME. PT IV LINE IS SL AND WNL. STAFF WILL CONT. TO MONITOR FOR CHANGES.
--- NOTE | 2020-04-16 22:26 | NUR ---
ASSUMPTION OF CARE. AOX3, INDEPENDENT TO BSC. LUNG SOUNDS ARE COURSE RHONCI T/O, PRODUCTIVE COUGH WITH SMALL TALBOT THICK SPUTUM. 4 L OF O2 SATS >90% ON CONTINUOUS BIOX. KANGROO PUMP INFUSING AT 90ML/HR WITH FLUSHES. REPORTS PAIN 9/10 IN BACK. ADMINISTERED MEDS PER PEG TUBE BY HOLDING FEEDING. LINE FLUSHED AND FEEDING RESTARTED. DID GET UP TO BSC, YELLOW URINE NOTED. LOOSE BM. MEDICATED FOR PAIN. DENIES ANY OTHER NEEDS AT THIS TIME. CALL LIGHT IS IN REACH.
--- NOTE | 2020-04-17 04:36 | NUR ---
SHIFT SUMMARY: AOX3, INDEPENDENT TO THE BSC. LUNG SOUNDS ARE VERY COURSE RHONCI, PRODUCTIVE COUGH, SMALL TALBOT THICK SPUTUM. ON 4 LITERS OF O2 HAD TO INCREASE TO 5L FOR SLEEP. CONTINUOUS BIOX IN PLACE. PEG TUBE W/ TUBE FEEDING, KANGROO SETTING AT 90ML/HR. RUNNING 6 CANS FOR THE DAY, 240ML OF H2O EVERY 2 HOURS PROGRAMED. HE IS TOLERATING USING PUMP WELL. MEDS VIA PEG TUBE. PAIN MANAGED WITH CURRENT MEDS. STRAIGHT CATH'D 700CC OUT. HE HAS VOIDED A FEW TIMES IN COMMODE. LOOSE STOOLS X2 TONIGHT, HELD BOWEL CARE MEDS. VS WNL, AFEBRILE. NO OTHER ACUTE CHANGES TO NOTE THIS SHIFT. USES CALL LIGHT APPROPRIATLY.
[2020-04-17 05:47] LABS: BASOPHILS ABSOLUTE AUTO 0.05 K/mm3 (0.00-0.23); BASOPHILS PERCENT AUTO 1 % (0-2); EOSINOPHILS ABSOLUTE AUTO 0.45 K/mm3 (0.00-0.68); EOSINOPHILS PERCENT AUTO 6 % (0-6); Hematocrit 26.5 % (37.0-53.0); Hemoglobin 8.5 g/dL (13.5-17.5); IMMATURE GRAN ABSOLUTE AUTO 0.03 K/mm3 (0.00-0.10); IMMATURE GRAN PERCENT AUTO 0 % (0-1); LYMPHOCYTES ABSOLUTE AUTO 1.66 K/mm3 (0.84-5.20); LYMPHOCYTES PERCENT AUTO 21 % (21-46); MONOCYTES ABSOLUTE AUTO 0.85 K/mm3 (0.16-1.47); MONOCYTES PERCENT AUTO 11 % (4-13); Mean Corpuscular HGB 31.8 pg (26.0-34.0); Mean Corpuscular HGB Conc 32.1 g/dL (31.5-36.5); Mean Corpuscular Volume 99 fL (80-100); Mean Platelet Volume 10.7 fL (9.1-12.4); NEUTROPHILS ABSOLUTE AUTO 5.06 K/mm3 (1.96-9.15); NEUTROPHILS PERCENT AUTO 62 % (41-73); Platelet Count 296 K/mm3 (150-400); RDW Coefficient Variation 14.6 % (11.7-14.2); RDW Standard Deviation 53.5 fL (35.1-46.3); Red Blood Cell Count 2.67 M/mm3 (4.30-5.90)
[2020-04-17 06:28] LABS: Alanine Aminotransfer (ALT/SGP 125 U/L (12-78); Albumin/Globulin Ratio 0.5 (0.8-1.8); Alk Phos 257 U/L (50-136); Anion Gap 5 mmol/L (6-16); Aspartate Aminotrans (AST/SGOT 103 U/L (12-37); Bilirubin, Total 0.5 mg/dL (0.1-1.0); Blood Urea Nitrogen 24 mg/dL (8-24); Bun/Creatinine Ratio 38.5 (12.0-20.0); CO2, Blood 28 mmol/L (21-32); Calcium, Blood 8.6 mg/dL (8.5-10.1); Chloride, Blood 111 mmol/L (98-108); Creatinine, Blood 0.62 mg/dL (0.60-1.20); Globulin, Blood 4.1 g/dL (2.2-4.0); Glomerular Filtration Rate >60 (60-); Glucose, Blood 147 mg/dL (70-99); Potassium, Blood 4.4 mmol/L (3.5-5.5); Sodium, Blood 144 mmol/L (136-145); Total Protein, Blood 6.1 g/dL (6.4-8.2)
--- NOTE | 2020-04-17 16:25 | NUR ---
PT IS A/OX3, PLEASANT AND COOPERATIVE, THE PT IS UP IND TO THE BSC, THE PT IS NPO DUE TO ASPIRATION, PT HAS A J-TUBE INFUSING TUBE FEEDING ORDERED BY THE HEARTH FEEDER, PT IS TOLERATING THE INFUSION WELL SO FAR, TODAY, THE PTS J-TUBE BECAME PLUGGED AFTER MED ADMINISTRATION, THE TUBE WAS CLEARED BY THE PIPELINES MANAGERSTACIE DIMAS AND FLUSHED FREELY T/O THE REST OF THE DAY, THE PT WAS UP TO THE BSC AND HAD A LARGE LOOSE BM, ALSO VOIDED SOME, PT APPEARS TO BE BREATHING EASILY AT REST ON O2 @ 4L/MIN, BECOMES VERY SOB WITH LITTLE ACTIVITY, PT HAD A BLOODY NOSE THIS AM HUMIDIFIER WAS ADDED TO THE PTS O2, PT WAS MEDICATED FOR CHRONIC PAIN T/O THE DAY, CALL LIGHT IN REACH, WILL CONTINUE TO MONITOR AND ASSESS FOR CHANGES, PTS IV ABX TIME SCHEDULE WAS CHANGED TO FIT THE PTS SCHEDULE AT HOME THE PTS REQUESTED
--- NOTE | 2020-04-18 07:12 | NUR ---
SHIFT SUMMARY PT IS A 74 Y/O MALE, ADMITTED FOR PNA. HE IS A&O X 4, 1PA TO [facility]. PT HAS A PEG TUBE, FEED TUBE STARTED LATE THIS AM APPROXIMATELY 0500 @ 90 ML/HR. PT IS ON 4L OF O2 VIA NC, SATTING > 92%. VITAL SIGNS STABLE. HE WAS MEDICATED FOR PAIN ONCE WITH PRN ROXANOL. NO C/O NAUSEA OR ACUTE SOB. NO ACUTE CHANGES IN PT CONDITION NOTED. WILL CONTINUE TO MONITOR AND TREAT PER EMAR UNTIL HAND OFF TO DAY SHIFT RN.
--- NOTE | 2020-04-18 17:30 | NUR ---
CREON THROUGH J- TUBE PER THE CREON SHOULD MIXED WITH APPLESAUCE AND SET FOR APROX. 15 MIN, THEN DILUTED WITH WATER AND ADMINISTERED HALF AT A TIME THROUGH THE TUBE, THIS HELPS TO PREVENT CLOGGING
--- NOTE | 2020-04-18 17:32 | NUR ---
PT IS A/OX3, PLEASANT AND COOPERATIVE, THE PT IS UP IND TO THE BSC, THE PT HAS CHRONIC BACK PAIN AND WAS MEDICATED FOR PAIN T/O THE DAY, THE PTS O2 WAS TITRATED TO 3L/MIN, PT O2 SATS REMAINED > THAN 92%, PT IS SOB WITH MINIMAL ACTIVITY, THE PT IS PLANNED FOR DC T[place] PENDING ABX SET UP FOR HOME, PT NEEDS TO HAVE ABX NEBULIZER WELL IV ABX SET UP BEFORE DC T[place], PTS WAS IN TO SEE HIM TODAY, THE PT HAD LOOSE STOOLS TODAY AND EACH TIME URINATED , THE PT PER HIS REQUEST WAS STRAIGHT CATHED USEING STRILE TECHNIQUE FOR RESIDUAL, CALL LIGHT IN REACH, WILL CONTINUE TO MONITOR AND ASSESS FOR CHANGES
--- NOTE | 2020-04-19 06:40 | NUR ---
SHIFT SUMMARY PT IS A 74 Y/O MALE, ADMITTED FOR PNA R/T PSEUDOMONAS. HE IS A&O X 4, SBA TO THE BS, INTERMITTENT STRAIGHT CATH PRN. NPO, PEG TUBE IN PLACE WITH CONTINUOUS FEEDINGS DURING THE DAY. PT WAS MEDICATED TWICE FOR CHRONIC PAIN WITH PRN ROXANOL. NO C/O NAUSEA OR ACUTE SOB. PT IS ON 3-4L OF O2 VIA NC, SATTING > 90%. VITAL SIGNS STABLE. AT APPROXIMATELY 2300, IT WAS NOTED THAT PT'S PEG TUBE WAS PLUGGED. TUBE WAS EVENTUALLY ABLE TO BE CLEARED THROUGH USE OF COLA AND HOT COFFEE AND ASPIRATING THE TUBE. TUBE FEEDING STARTED THIS AM AT 90 ML/HR. NO OTHER ACUTE CHANGES IN PT CONDITION NOTED. WILL CONTINUE TO MONITOR AND TREAT PER EMAR UNTIL HAND OFF TO DAY SHIFT RN.
--- NOTE | 2020-04-19 11:15 | NUR ---
Assumed Pt care 0650. Pt AA&Ox4. Peg tube functioning WNL. Straught cath @1045 for 750ml. SBA assist. Bed alarm set. Client states no needs at this time.
--- NOTE | 2020-04-19 18:57 | NUR ---
Pt AA&Ox4. Pleasant cooperative. 1 assist to BSC. Calls appropriately. All meds through PEG tube. Pain well controlled
--- NOTE | 2020-04-20 00:05 | NUR ---
DRESSING CHANGED, ASEPTIC TECHNIQUE. NOTE LINE OUT ABOUT 5 CM, PT NURSE NOTIFIED AND CHARGE NURSE NOTIFIED, - SEE FOLLOW UP DOC
--- NOTE | 2020-04-20 04:02 | NUR ---
SHIFT SUMMARY AOX3. VSS. FOLLOWS DIRECTIONS. REPORTS 9/ CHRONIC LOW BACK PAIN, MEDICATED 1X c 20MG ROXANOL, PAIN LEVEL DECREASED TO 8/10. DENIES NAUSEA. STATES BREATHING IS BETTER. LUNGS ARE DIM & COARSE IN BASES. SPO2 >90% ON 3L O2. HAS OCCASIONAL PRODUCTIVE COUGH c SMALL AMOUNT TALBOT SPUTUM. ASSISTED PT c STRAIGHT CATH, 850ML URINE OUTPUT. PEG TUBE HAVING ISSUES FLUSING MEDS LAST NIGHT, PT STATED IT WAS FROM RECIEVING "CREON". AFTER A FEW WATER BOLUSES PEG TUBE FLUSHED EASIER. CALL LIGHT IN REACH & I WILL CONT TO MONITOR.
[2020-04-20 05:14] LABS: Hematocrit 25.9 % (37.0-53.0); Hemoglobin 8.4 g/dL (13.5-17.5); Mean Corpuscular HGB 31.2 pg (26.0-34.0); Mean Corpuscular HGB Conc 32.4 g/dL (31.5-36.5); Mean Corpuscular Volume 96 fL (80-100); Mean Platelet Volume 10.8 fL (9.1-12.4); Platelet Count 270 K/mm3 (150-400); RDW Coefficient Variation 14.2 % (11.7-14.2); RDW Standard Deviation 50.3 fL (35.1-46.3); Red Blood Cell Count 2.69 M/mm3 (4.30-5.90); White Blood Cell Count 6.65 K/mm3 (4.00-11.30)
[2020-04-20 05:34] LABS: Anion Gap 4 mmol/L (6-16); Blood Urea Nitrogen 33 mg/dL (8-24); CO2, Blood 32 mmol/L (21-32); Calcium, Blood 8.4 mg/dL (8.5-10.1); Chloride, Blood 101 mmol/L (98-108); Creatinine, Blood 0.87 mg/dL (0.60-1.20); Glomerular Filtration Rate >60 (60-); Glucose, Blood 89 mg/dL (70-99); Potassium, Blood 4.7 mmol/L (3.5-5.5); Sodium, Blood 137 mmol/L (136-145)
--- NOTE | 2020-04-20 18:43 | NUR ---
ALERT. ORIENTED. MEDICATED FOR CHRONIC PAIN WHICH HELPS A LITTLE. IV PATENT. PEG TUBE PATENT. SELF CATHED WITH 800 ML OUT. UNLABORED RESPIRATIONS. WCTM
--- NOTE | 2020-04-21 06:31 | NUR ---
SHIFT SUMMARY AOX4. VSS. PEG TUBE CLOGGED LAST NIGHT, AFTER PULSATING SODA, COFFEE, WARM WATER c BAKING SODA TO BREAK UP DEBRIS FOR 1 HR, I THEN CALLED LANDEN Anderson & SHE GAVE ORDER TO TRY SUCTION c PEG TUBE, HOWEVER I WENT TO PTS RM & PEG TUBE WAS PATENT AFTER LETTING WARM FLUIDS SIT & BREAK UP DEBRIS. PT STRAIGHT CATH'D SELF THIS AM, 725ML URINE OUT. REPORTS 10/29 CHRONIC LOW BACK PAIN, MEDICATED 2X c ROXANOL, DECREASES PAIN LEVEL TO 8/10-STATES "IT HELPS A LITTLE." SPO2 >90% ON 3L O2, BASELINE. LUNGS ARE DIM. PT DENIES DYSPNEA @REST. PT LOOKING FORWARD TO POSSIBLY BEING DC HOME TODAY. CALL LIGHT IN REACH, WILL MONITOR UNTIL DAY NURSE ASSUMES CARE.
[2020-04-21] MEDS ORDERED: AVYCAZ 2.5 GRA2.5 GM IV (11:58)
[2020-04-21] MEDS ORDERED: TOBRAMYCIN INH (12:01)
--- NOTE | 2020-04-21 13:40 | NUR ---
PATIENT D/C'D TO HOME WITH . DC INSTRUCTIONS AND EDUCATION DISCUSSED WITH PATIENT AND COPY PROVIDED. HOME HEALTH TO MEET PATIENT AT HIS HOME TO ADMINISTER IV ABX THROUGH PICC LINE. PATIENT DENIES ANY FURTHER QUESTIONS OR CONCERNS.
== END 2020-04-21 13:35 | disposition home health service (06) | DRG 871 ==
LOC: ER 19:06 → ICUW 23:49 → MEDS 04-15 00:05 → ICUW 04-15 09:45 → MEDS 04-15 22:20
PROVIDERS: Emergency Medicine; Internal Medicine; Nurse Practitioner Acute Care; ADMIT Internal Medicine
DX: A41.52 Sepsis due to Pseudomonas (principal); J15.1 Pneumonia due to Pseudomonas; J69.0 Pneumonitis due to inhalation of food and vomit; J96.21 Acute and chronic respiratory failure with hypoxia; E84.9 Cystic fibrosis, unspecified; F11.20 Opioid dependence, uncomplicated; J84.9 Interstitial pulmonary disease, unspecified; I50.42 Chronic combined systolic (congestive) and diastolic (congestive) heart failure; J44.0 Chronic obstructive pulmonary disease with (acute) lower respiratory infection; Z20.822 Contact with and (suspected) exposure to COVID-19; I11.0 Hypertensive heart disease with heart failure; E78.5 Hyperlipidemia, unspecified; F32.9 Major depressive disorder, single episode, unspecified; F41.9 Anxiety disorder, unspecified; G89.4 Chronic pain syndrome; I25.10 Atherosclerotic heart disease of native coronary artery without angina pectoris; I73.9 Peripheral vascular disease, unspecified; K21.9 Gastro-esophageal reflux disease without esophagitis; M51.36 Other intervertebral disc degeneration, lumbar region; N40.1 Benign prostatic hyperplasia with lower urinary tract symptoms; Z99.81 Dependence on supplemental oxygen; F17.210 Nicotine dependence, cigarettes, uncomplicated; Z93.1 Gastrostomy status; I27.20 Pulmonary hypertension, unspecified; Z79.51 Long term (current) use of inhaled steroids
CPT/HCPCS: 0202U; 36415; 51701; 71045; 80048; 80053; 80200; 81001; 82803; 83605; 84145; 85025; 85027; 87040; 87070; 87077; 87106; 87186; 87205; 87449; 93005; 93010; 94640; 94760; 94762; 96376; 99285-25; A9270; J0714; J1650; J2060; J2185; J3260; J3465; J7030; J7050

== ENCOUNTER 2020-04-22 15:44 | Emergency (ER) | payer MEDICARE ==
[~2020-04-22] VITALS: Ht 188 cm; Wt 61.2 kg
[~2020-04-22 15:44] MED LIST changes: +AVYCAZ 2.5 GRA2.5 GM IV; +TOBRAMYCIN INH
[2020-04-22 16:35] LABS: BASOPHILS ABSOLUTE AUTO 0.04 K/mm3 (0.00-0.23); BASOPHILS PERCENT AUTO 0 % (0-2); EOSINOPHILS ABSOLUTE AUTO 0.29 K/mm3 (0.00-0.68); EOSINOPHILS PERCENT AUTO 3 % (0-6); Hematocrit 28.2 % (37.0-53.0); Hemoglobin 8.8 g/dL (13.5-17.5); IMMATURE GRAN ABSOLUTE AUTO 0.03 K/mm3 (0.00-0.10); IMMATURE GRAN PERCENT AUTO 0 % (0-1); LYMPHOCYTES ABSOLUTE AUTO 1.28 K/mm3 (0.84-5.20); LYMPHOCYTES PERCENT AUTO 13 % (21-46); MONOCYTES ABSOLUTE AUTO 1.15 K/mm3 (0.16-1.47); MONOCYTES PERCENT AUTO 12 % (4-13); Mean Corpuscular HGB 30.9 pg (26.0-34.0); Mean Corpuscular HGB Conc 31.2 g/dL (31.5-36.5); Mean Corpuscular Volume 99 fL (80-100); Mean Platelet Volume 10.9 fL (9.1-12.4); NEUTROPHILS ABSOLUTE AUTO 7.04 K/mm3 (1.96-9.15); NEUTROPHILS PERCENT AUTO 72 % (41-73); Platelet Count 286 K/mm3 (150-400); RDW Coefficient Variation 13.9 % (11.7-14.2); RDW Standard Deviation 50.6 fL (35.1-46.3); Red Blood Cell Count 2.85 M/mm3 (4.30-5.90); White Blood Cell Count 9.83 K/mm3 (4.00-11.30)
[2020-04-22 16:54] LABS: Alanine Aminotransfer (ALT/SGP 153 U/L (12-78); Albumin, Blood 2.3 g/dL (3.4-5.0); Albumin/Globulin Ratio 0.5 (0.8-1.8); Alk Phos 437 U/L (50-136); Anion Gap 1 mmol/L (6-16); Aspartate Aminotrans (AST/SGOT 198 U/L (12-37); Bilirubin, Total 0.3 mg/dL (0.1-1.0); Blood Urea Nitrogen 35 mg/dL (8-24); Bun/Creatinine Ratio 39.9 (12.0-20.0); CO2, Blood 32 mmol/L (21-32); Calcium, Blood 8.7 mg/dL (8.5-10.1); Chloride, Blood 110 mmol/L (98-108); Creatinine, Blood 0.88 mg/dL (0.60-1.20); Globulin, Blood 4.7 g/dL (2.2-4.0); Glomerular Filtration Rate >60 (60-); Glucose, Blood 52 mg/dL (70-99); Potassium, Blood 5.2 mmol/L (3.5-5.5); Sodium, Blood 143 mmol/L (136-145)
== END 2020-04-22 18:40 | disposition home or self-care (01) ==
LOC: ER 15:44
PROVIDERS: Emergency Medicine
DX: J98.4 Other disorders of lung (principal); J44.9 Chronic obstructive pulmonary disease, unspecified; I10 Essential (primary) hypertension; E78.5 Hyperlipidemia, unspecified; K21.9 Gastro-esophageal reflux disease without esophagitis; Z88.8 Allergy status to other drugs, medicaments and biological substances; Z79.82 Long term (current) use of aspirin; Z79.899 Other long term (current) drug therapy; Z79.51 Long term (current) use of inhaled steroids
CPT/HCPCS: 71045; 80053; 85025; 93005; 93010; 99285-25